=== PATIENT | female | born 1960 | race Caucasian/White ===

== ENCOUNTER → 2018-04-05 | Outpatient (CLI) | payer BC ==
[~2018-04-05] MED LIST: CATHETER FLUSH 10 ML SYR IV PRN; CITA40TA11 PO; ESTR1TAB24 PO; HYDR-3870 PO; IOHEXOL 350 MG/ML 100 ML (OMNIPAQUE 350) VIAL IV ONE; METO-370 PO; NITR-65 PO; NS 100 ML (IVPB) BAG IV ONE; PHEN-640 PO; TAMS0.4C98 PO; TRIA1CAP4 PO
[2018-04-05 12:56] LABS: BUN/CREATININE RATIO 19; CREATININE SERUM 0.64 MG/DL (0.60-1.30); GFR ESTIMATED > 60
--- NOTE | 2018-04-05 13:38 | Diagnostic Imaging Report ---
PROCEDURE: CT chest with contrast only. TECHNIQUE: Multiple contiguous axial images were obtained through the chest after administration of intravenous contrast. INDICATION: Pulmonary nodule. COMPARISON: No prior studies are available for comparison. FINDINGS: No axillary lymphadenopathy is detected. No hilar or mediastinal lymphadenopathy is identified. No pericardial or pleural fluid is detected. There is a slightly irregular nodule in the right middle lobe measuring 13 mm in size. No calcifications within the lesion are identified. No other parenchymal masses are seen. Central airways are unremarkable. The upper abdomen is unremarkable. The bony structures are non-acute. IMPRESSION: Noncalcified right middle lobe nodule. This is indeterminate, but a small neoplasm cannot be entirely excluded. PET/CT would be recommended for further evaluation. Dictated by: Dictated on workstation # [id number]
--- NOTE | 2018-04-05 14:10 | Diagnostic Imaging Report ---
INDICATION: Left lower quadrant pain. TECHNIQUE: Two supine view of the abdomen 1:43 PM. CORRELATION STUDY: None FINDINGS: Contrast material is noted within the collecting systems. There is no suggestion for asymmetrically dilated collecting systems. No definitive calcification along the expected course of either ureter. Mild severity fecal retention is present. No evidence for underlying obstruction. Cholecystectomy clips in the right upper quadrant. IMPRESSION: 1. Contrast within genitourinary system appearing to be nondilated. Nonobstructive appearing bowel gas pattern. Dictated by: Dictated on workstation # [id number]
== END ==
LOC: RAD 12:17
PROVIDERS: ATTEND Urology
DX: R91.8 Other nonspecific abnormal finding of lung field (principal); R10.32 Left lower quadrant pain
CPT/HCPCS: 36415; 71260; 74018; 82565; 84520

== ENCOUNTER → 2018-04-08 | Outpatient (CLI) | payer BC ==
[~2018-04-08] MED LIST changes: -CATHETER FLUSH 10 ML SYR IV PRN; -IOHEXOL 350 MG/ML 100 ML (OMNIPAQUE 350) VIAL IV ONE; -NS 100 ML (IVPB) BAG IV ONE
--- NOTE | 2018-04-08 16:47 | Diagnostic Imaging Report ---
INDICATION: History of right ureteral stone. COMPARISON: 04/05/2018. FINDINGS: Two supine radiographic views of the abdomen were obtained. There is a 7 mm calculus in the right hemipelvis in the expected location of the distal right ureter. There is no prior CT of the pelvis for comparison purposes. No other unexpected extraosseous calcifications or radiopaque foreign bodies are seen. Small bowel loops are nondistended. There is no large collection of free intraperitoneal air. Bony structures show no gross acute abnormalities. IMPRESSION: 1. Extraosseous calculus within the right hemipelvis, which may be within the distal right ureter. 2. Nonobstructed small bowel gas pattern. Dictated by: Dictated on workstation # [id number]
== END ==
LOC: RAD 14:08
PROVIDERS: ATTEND Urology
DX: N20.1 Calculus of ureter (principal)
CPT/HCPCS: 74018

== ENCOUNTER 2018-04-12 09:19 | Outpatient (CLI) | payer BC ==
[~2018-04-12] VITALS: Ht 152.4 cm; Wt 81.6 kg
[2018-04-12] MEDS ORDERED: ESTR1TAB24 PO ×2 (13:56)
[2018-04-12] MEDS ORDERED: TRIA1CAP4 PO ×2 (13:56)
[2018-04-12] MEDS ORDERED: METO-370 PO ×2 (13:56)
[2018-04-12] MEDS ORDERED: CITA40TA11 PO ×2 (13:56)
[2018-04-13] MEDS ORDERED: TAMS0.4C98 PO ×2 (10:31)
[2018-04-13] MEDS ORDERED: HYDR-3870 PO ×2 (10:31)
[2018-04-13] MEDS ORDERED: NITR-65 PO ×2 (10:31)
[2018-04-13] MEDS ORDERED: PHEN-640 PO ×2 (10:31)
== END 2018-04-12 13:58 | disposition home or self-care (01) ==
LOC: PREOP 09:19
PROVIDERS: ATTEND Urology
DX: Z01.818 Encounter for other preprocedural examination (principal)

== ENCOUNTER 2018-04-13 07:32 | Day surgery (SDC) | payer BC ==
[~2018-04-13] VITALS: Ht 152.4 cm; Wt 81.6 kg
[~2018-04-13 07:32] MED LIST changes: -HYDR-3870 PO; +LACTATED RINGERS 1,000 ML IV PRN; -NITR-65 PO; -PHEN-640 PO; -TAMS0.4C98 PO
[2018-04-13] MEDS ORDERED: cefTRIAXone INJECTION 1,000 MG in NS (IVPB) 50 ML IV ONE (07:45)
[2018-04-13] MEDS ORDERED: MIDAZOLAM 2 MG/2 ML (VERSED) VIAL IVP ONE (08:10)
--- NOTE | 2018-04-13 08:14 | Progress Note-Post Operative ---
Post-Operative Progess Note Surgeon (s)/Railroad Brakeman (s) Surgeon GONSALO URIAS MD Railroad Brakeman: N/A Pre-Operative Diagnosis RT DISTAL URETERAL STONE Post-Operative Diagnosis SAME Procedure & Operative Findings Date of Procedure 04/13/18 Procedure Performed/Findings RT URETEROSCOPY WITH STONE LITHOTRIPSY Anesthesia Type GENERAL Estimated Blood Loss Estimated blood loss (mL): N/A Specimens/Packing Specimens Removed N/A Packing: N/A GONSALO URIAS MD Apr 13, 2018 8:14 am
--- NOTE | 2018-04-13 08:14 | Progress Note-Pre Operative ---
Pre-Operative Progress Note H&P Reviewed The H&P was reviewed, patient examined and no changes noted. Date Seen by Provider: Apr 13, 2018 Time Seen by Provider: 08:13 Date H&P Reviewed: Apr 13, 2018 Time H&P Reviewed: 08:13 Pre-Operative Diagnosis: RT DISTAL URETERAL STONE GONSALO URIAS MD Apr 13, 2018 8:14 am
--- NOTE | 2018-04-13 08:15 | Progress Note-Post Operative ---
Post-Operative Progess Note Surgeon (s)/Steeple Jack (s) Surgeon GONSALO URIAS MD Steeple Jack: N/A Pre-Operative Diagnosis RT DISTAL URETERAL STONE Post-Operative Diagnosis SAME Procedure & Operative Findings Date of Procedure 04/13/18 Procedure Performed/Findings RT URETEROSCOPY WITH STONE LITHOTRIPSY Anesthesia Type GENERAL Estimated Blood Loss Estimated blood loss (mL): N/A Specimens/Packing Specimens Removed N/A Packing: N/A GONSALO URIAS MD Apr 13, 2018 8:15 am
[2018-04-13] MEDS ORDERED: MIDAZOLAM 2 MG/2 ML (VERSED) VIAL ONE (08:19)
--- NOTE | 2018-04-13 08:20 | Diagnostic Imaging Report ---
INDICATION: Ureteral stone two views were obtained. FINDINGS: Lung bases are clear. Bowel gas pattern is nonspecific. There are surgical clips in the right upper quadrant. There is a stone in the right hemipelvis presumably in the distal ureter. IMPRESSION: Presumed stone in the distal right ureter. Nonspecific bowel gas pattern. Dictated by: Dictated on workstation # [id number]
[2018-04-13] MEDS ORDERED: PROPOFOL INJECTION 50 ML IV ONE (08:23)
[2018-04-13] MEDS ORDERED: fentaNYL INJECTION 100 MCG/2 ML AMP ONE (08:27)
[2018-04-13 08:53] VITALS: BP 129/66
[2018-04-13] MEDS ORDERED: proPOfol 200 MG/20 ML (DIPRIVAN) VIAL IV ONE (09:06)
[2018-04-13] MEDS ORDERED: LIDOCAINE PF 2% 5 ML (XYLOCAINE) VIAL ONE (09:06)
[2018-04-13] MEDS ORDERED: ONDANSETRON 4 MG/2 ML (SDV) Z0FRAN ONE (09:06)
[2018-04-13] MEDS ORDERED: KETOROLAC 30 MG/ML VIAL ONE (09:09)
[2018-04-13] MEDS ORDERED: FUROSEMIDE 40 MG/4 ML INJ (LASIX) ONE (09:09)
--- NOTE | 2018-04-13 09:19 | Discharge Inst-Urology ---
Discharge Inst-Urology Discharge Medications New, Converted, or Re-newed RX: RX on Chart Patient Instructions/Follow Up Plan Please make appointment to been seen in office in [address] home Post lithotripsy instructions Increase oral fluids for 48 hours and then as needed. Diet and Activity as tolerated. If questions or concerns contact your physician Or seek help at emergency department. GONSALO URIAS MD Apr 13, 2018 9:19 am
[2018-04-13] MEDS ORDERED: ONDANSETRON 4 MG/2 ML (SDV) Z0FRAN IVP PRN (10:00)
[2018-04-13] MEDS ORDERED: morphine INJ 10 MG/ML 1ML (SYR OR VIAL) IVP PRN (10:00)
[2018-04-13 10:17] VITALS: BP 151/80
[2018-04-13] MEDS ORDERED: NITR-65 PO ×2 (10:31)
[2018-04-13] MEDS ORDERED: HYDR-3870 PO ×2 (10:31)
[2018-04-13] MEDS ORDERED: TAMS0.4C98 PO ×2 (10:31)
[2018-04-13] MEDS ORDERED: PHEN-640 PO ×2 (10:31)
[2018-04-13 10:45] VITALS: BP 117/75
[2018-04-13 11:30] VITALS: BP 151/85
[2018-04-13 11:50] VITALS: BP 151/85
--- NOTE | 2018-04-13 12:09 | Diagnostic Imaging Report ---
CLINICAL INDICATION: Patient is post lithotripsy. EXAM: KUB x-ray. COMPARISON: KUB x-ray dated 04/13/2018 at 0818 hrs. FINDINGS AND IMPRESSION: 1: There is interval resolution of previously seen stone in the right low pelvis region consistent with ureteral stone. There is a small focal calcification measuring 1 mm. Unknown if this represents a residual distal right ureteral fragment versus phlebolith. CT scan would better evaluate if clinically indicated. 2: The remainder of this exam shows no significant interval change compared to the prior study of comparison. Dictated by: Dictated on workstation # [id number]
--- NOTE | 2018-04-13 12:26 | Anesthesia-General Post-Op ---
General Patient Condition Mental Status/LOC: Same as Preop Cardiovascular: Satisfactory Nausea/Vomiting: Absent Respiratory: Satisfactory Pain: Controlled Complications: Absent Post Op Complications Complications None Follow Up Care/Instructions Patient Instructions None needed. Anesthesia/Patient Condition Patient Condition Patient is doing well, no complaints, stable vital signs, no apparent adverse anesthesia problems. No complications reported per nursing. LING SR CRNA Apr 13, 2018 12:26
--- NOTE | 2018-04-13 15:07 | OPERATIVE REPORT ---
DATE OF SERVICE: 04/13/2018 PREOPERATIVE DIAGNOSIS: Right distal ureteral stone. POSTOPERATIVE DIAGNOSIS: Right distal ureteral stone. OPERATION PERFORMED: Right ureteroscopy with stone lithotripsy. SURGEON: Chalino Urias MD ANESTHESIA: General. COMPLICATIONS: None. DESCRIPTION OF PROCEDURE: Under satisfactory general anesthesia, the patient in lithotomy position, genitalia were prepped and draped in the usual sterile fashion. Cystoscope was introduced under vision. The bladder was essentially normal except for a sluggish efflux on the right side. Using the foroblique lens, I dilated the right ureteral orifice intramural portion to the level of the stone guided fluoroscopically to accommodate a 6.9 Stateless semi-rigid ureteroscope. The stone was visualized and was broken up first at power of 5 in order not to lose the stone proximally and then finished with a power of 12. The stone was completely fragmented in very small fragments easy to pass. I went beyond the stone proximally. There was no further stone or fragments that needed to be addressed. I inspected again antegrade, some of the fragments fell into the bladder. I removed the ureteroscope, reinserted the cystoscope to empty the bladder. The patient tolerated the procedure and anesthesia well and was sent to recovery room in stable condition. Job ID: [id number] DocumentID: [id number] Dictated Date: 04/13/2018 09:21:14 Recordak Operator Date: 04/13/2018 15:06:43 Dictated By: CHALINO URIAS MD
== END 2018-04-13 11:50 | disposition home or self-care (01) ==
LOC: SDC 07:32
PROVIDERS: ATTEND Urology
DX: N20.1 Calculus of ureter (principal); I10 Essential (primary) hypertension; Z86.711 Personal history of pulmonary embolism
CPT/HCPCS: 74018; 87081

== ENCOUNTER 2018-04-27 16:48 | Outpatient (RCR) | payer BC ==
[~2018-04-27 16:48] MED LIST changes: +HYDR-3870 PO; -LACTATED RINGERS 1,000 ML IV PRN; +NITR-65 PO; +PHEN-640 PO; +TAMS0.4C98 PO
== END 2018-04-30 | disposition home or self-care (01) ==
LOC: LAB 16:48 → EDSTATUS 04-29 09:07
PROVIDERS: ATTEND Urology
DX: N20.9 Urinary calculus, unspecified (principal)
CPT/HCPCS: 36415; 82140; 82340; 82507; 82570; 83735; 83945; 83986; 84105; 84133; 84300; 84392; 84560; 88300

== ENCOUNTER 2022-05-11 08:40 | Inpatient (IN) | payer BC, OTHER ==
[~2022-05-11] VITALS: Ht 152.4 cm; Wt 95.7 kg
[~2022-05-11 08:40] MED LIST changes: -CITA40TA11 PO; +CITA40TA13 PO; -METO-370 PO; +METO50TA7 PO; -TAMS0.4C98 PO; +TMSL.4C PO; -TRIA1CAP4 PO; +TRIA1CAP84 PO
[2022-05-11 09:04] LABS: BILIRUBIN,URINE NEGATIVE (NEGATIVE); CLARITY,URINE CLEAR; COLOR,URINE YELLOW; GLUCOSE, URINE (UA) NEGATIVE (NEGATIVE); KETONES,URINE NEGATIVE (NEGATIVE); LEUKOCYTE ESTERASE ,URINE NEGATIVE (NEGATIVE); NITRITE,URINE NEGATIVE (NEGATIVE); PH,URINE 5.5 (5-9); PROTEIN,URINE NEGATIVE (NEGATIVE)
[2022-05-11 09:13] LABS: BACTERIA,URINE FEW /HPF
[2022-05-11] MEDS ORDERED: ONDANSETRON 4 MG/2 ML (SDV) Z0FRAN IVP ONE (09:30)
[2022-05-11] MEDS ORDERED: LACTATED RINGERS 1,000 ML IV ONE (09:30)
[2022-05-11 09:34] LABS: BASOPHILS # (AUTO) 0.1 10^3/uL (0.0-0.1); BASOPHILS % (AUTO) 0 % (0-10); EOSINOPHILS % (AUTO) 0 % (0-10); HEMATOCRIT 44 % (35-52); HEMOGLOBIN 14.8 g/dL (11.5-16.0); LYMPHOCYTES # (AUTO) 0.8 10^3/uL (1.0-4.0); LYMPHOCYTES % (AUTO) 3 % (12-44); MEAN CORPUSCULAR HEMOGLOBIN 31 pg (25-34); MEAN CORPUSCULAR HGB CONC 34 g/dL (32-36); MEAN CORPUSCULAR VOLUME 92 fL (80-99); MEAN PLATELET VOLUME 9.7 fL (9.0-12.2); MONOCYTES # (AUTO) 1.1 10^3/uL (0.0-1.0); MONOCYTES % (AUTO) 4 % (0-12); NEUTROPHILS # (AUTO) 25.2 10^3/uL (1.8-7.8); NEUTROPHILS % (AUTO) 92 % (42-75); PLATELET COUNT 277 10^3/uL (130-400); WHITE BLOOD COUNT 27.5 10^3/uL (4.3-11.0)
[2022-05-11 09:39] LABS: ALBUMIN 3.8 GM/DL (3.2-4.5)
[2022-05-11 09:40] LABS: POTASSIUM 3.6 MMOL/L (3.6-5.0)
[2022-05-11 09:41] LABS: CALCIUM 8.8 MG/DL (8.5-10.1)
[2022-05-11 09:42] LABS: TOTAL PROTEIN 6.7 GM/DL (6.4-8.2)
[2022-05-11 09:44] LABS: BILIRUBIN,TOTAL 1.1 MG/DL (0.1-1.0)
[2022-05-11] MEDS ORDERED: fentaNYL INJ 100 MCG/2 ML AMP IVP ONE (09:45)
[2022-05-11 09:46] LABS: CREATININE SERUM 0.85 MG/DL (0.60-1.30)
[2022-05-11] MEDS ORDERED: HOLD METFORMIN - RECEIVED CONTRAST 20 ML VIAL IV SCH (10:15)
[2022-05-11] MEDS ORDERED: NS 100 ML (IVPB) BAG IV ONE (10:15)
[2022-05-11] MEDS ORDERED: CATHETER FLUSH 10 ML SYR IV PRN (10:15)
[2022-05-11] MEDS ORDERED: IOHEXOL 350 MG/ML 100 ML (OMNIPAQUE 350) VIAL IV ONE (10:15)
[2022-05-11 10:31] LABS: BAND NEUTROPHILS 12 %; LYMPHOCYTES % (MANUAL) 4 %; MONOCYTES % (MANUAL) 2 %; NEUTROPHILS % (MANUAL) 82 %; RBC MORPH NORMAL; TOXIC GRANULATION/VACUOLAZATIO 3+
--- NOTE | 2022-05-11 10:40 | Diagnostic Imaging Report ---
PROCEDURE: CT abdomen and pelvis with contrast. TECHNIQUE: Multiple contiguous axial images were obtained through the abdomen and pelvis after administration of intravenous contrast. Auto Exposure Controls were utilized during the CT exam to meet ALARA standards for radiation dose reduction. All CT scans use one or more of the following dose optimizing techniques: automated exposure control, MA and/or KvP adjustment based on patient size and exam type or iterative reconstruction. INDICATION: Abdominal pain. FINDINGS: There is a 1.3 cm nodule in the right lung base. This is unchanged compared to prior examination from 2018 and may be partially calcified. Heart size is normal. Lung bases are otherwise clear. There is fatty infiltration of the liver. Gallbladder is unremarkable. There is no biliary ductal dilatation. Spleen is normal. There are numerous tiny pockets of free air anterior to the liver and about the spleen. Pancreas and adrenal glands are unremarkable. There is a cyst in the anterior aspect of the right kidney. Kidneys otherwise unremarkable. Aorta is nonaneurysmal. There is some free pockets of air in the pelvis as well. Aorta is nonaneurysmal. There is no pelvic mass or adenopathy. There are minimal degenerative changes in spine. There appears to be a very small fluid collection in the right lower quadrant with an air-fluid level. Possibility of early abscess cannot be excluded. This measures 1.8 cm and is seen on image 153 series 2. IMPRESSION: Free intraperitoneal air compatible with perforated viscus. This is presumably secondary to diverticulitis in the right lower quadrant. There is a questionable developing small abscess. Fatty infiltration of the liver Findings are conveyed directly to Dr. Melgar in the [facility] 10:30 AM Dictated by: Dictated on workstation # [id number]
--- NOTE | 2022-05-11 10:43 | ED Abdominal Pain ---
General Chief Complaint: Abdominal/GI Problems Stated Complaint: ABD PAIN Nursing Triage Note: PT STATES SHE WAS NOT FEELING WELL WHEN SHE WENT TO BED LAST NIGHT, WOKE UP AND VOMITED ABOUT 0430. DIFFICULTY URINATING, RLQ PAIN. NORMAL BM YESTERDAY, HX OF APPENDECTOMY, HYSTERECTOMY AND GALLBLADDER Source of Information: Patient Exam Limitations: No Limitations History of Present Illness Date Seen by Provider: May 11, 2022 Time Seen by Provider: 08:53 Initial Comments This is 62-year-old woman presents to the emergency room with complaints of right lower quadrant pain radiating throughout the rest of the abdomen that started sometime yesterday. She had a terrible night and started vomiting around 0 430. She has had some dysuria and feels like her urine does not completely empty before she stops voiding. She is afebrile. She has peritoneal signs on exam with tenderness to percussion throughout the abdomen, greatest in the right lower quadrant. She is surgically absent appendix, uterus and ovaries, and gallbladder. She has additionally had section and hernia repair. She is in obvious discomfort during the interview. Allergies and Home Medications Allergies Coded Allergies: codeine (Verified Allergy, Unknown, CHEST TIGHTNESS, 04/12/18) erythromycin base (Verified Allergy, Unknown, STOMACH CRAMPS, 04/12/18) meperidine (Verified Allergy, Unknown, ANAPHYLAXIS, 04/12/18) Patient Home Medication List Home Medication List Reviewed: Yes Citalopram Hydrobromide (Citalopram HBr) 40 Mg Tablet, 40 MG PO DAILY, (Reported) Entered as Reported by: GT SALAZAR on 04/12/18 1356 Estradiol (Estradiol Tablet) 1 Mg Tablet, 0.5 MG PO DAILY, (Reported) Entered as Reported by: GT SALAZAR on 04/12/18 1356 Hydrocodone/Acetaminophen (Lorcet 5-325 mg Tablet) 1 Each Tablet, 1-2 EACH PO Q4H PRN for PAIN Prescribed by: LAURITA CUI on 04/13/18 1031 Metoprolol Succinate (Metoprolol Succinate) 50 Mg Tab.er.24h, 50 MG PO DAILY, (Reported) Entered as Reported by: GT SALAZAR on 04/12/18 1356 Nitrofurantoin Monohyd/M-Cryst (Macrobid 100 mg Capsule) 100 Mg Capsule, 1 TAB PO BID Prescribed by: LAURITA CUI on 04/13/18 1031 Phenazopyridine HCl (Pyridium) 200 Mg Tablet, 1 TAB PO TID Prescribed by: LAURITA CUI on 04/13/18 1031 Tamsulosin HCl (Flomax) 0.4 Mg Cap, 0.4 MG PO DAILY Prescribed by: LAURITA CUI on 04/13/18 1031 Triamterene/Hydrochlorothiazid (Triamterene-Hctz 37.5-25 mg Cp) 1 Each Capsule, 1 EACH PO DAILY, (Reported) Entered as Reported by: GT SALAZAR on 04/12/18 1356 Review of Systems Review of Systems Constitutional: no symptoms reported EENTM: No Symptoms Reported Respiratory: No Symptoms Reported Cardiovascular: No Symptoms Reported Gastrointestinal: See HPI Genitourinary: See HPI Musculoskeletal: no symptoms reported Skin: no symptoms reported Psychiatric/Neurological: No Symptoms Reported Endocrine: No Symptoms Reported Hematologic/Lymphatic: No Symptoms Reported Past Llruujv-Jhvant-Kqjgkw Hx Patient Social History Tobacco Use?: No Substance use?: No Alcohol Use?: No Immunizations Up To Date COVID19 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 [employer] Seasonal Allergies Seasonal Allergies: Yes Past Medical History Surgery/Hospitalization HX: APPENDECTOMY, HYSTERECTOMY, GALLBLADDER, LT KNEE SCOPE, HYPERTENSION, ANXIETY, DEPRESSION, DIVERTICULITIS, KIDNEY STONES Surgeries: Yes Abdominal (Hernia repair), Adenoidectomy, Appendectomy, Section, Gallbladder, Hysterectomy, Tonsillectomy Respiratory: Yes Pulmonary Embolism Cardiac: Yes Hypertension Neurological: No : No Reproductive Disorders: No Genitourinary: Yes Kidney Stones Gastrointestinal: Yes Diverticulosis, Irritable Bowel Musculoskeletal: No Endocrine: No HEENT: No Cancer: No Skin Psychosocial: Yes Anxiety, Depression Integumentary: No Physical Exam Vital Signs Vital Signs - First Documented 05/11/22 08:52 Temp 35.3 Pulse 78 Resp 20 B/P (MAP) 100/44 (62) Pulse Ox 96 O2 Delivery Room Air Capillary Refill : Less Than 3 Seconds Height/Weight/BMI Height: 5'0.00" Weight: 180lbs. 0.0oz. 81.223570sk; 37.00 BMI Method: General Appearance: WD/WN, mild distress HEENT: PERRL/EOMI, normal ENT inspection Neck: normal inspection Respiratory: lungs clear, normal breath sounds, no respiratory distress Cardiovascular: regular rate, rhythm, no edema, no murmur Gastrointestinal: normal bowel sounds, soft, tenderness (Diffuse tenderness to percussion and palpation, greatest in the right lower quadrant) Extremities: normal inspection, no pedal edema Neurologic/Psychiatric: no motor/sensory deficits, alert, normal mood/affect, oriented x 3 Skin: normal color, warm/dry Focused Exam Lactate Level 05/11/22 10:10: Lactic Acid Level 2.69*H Lactic Acid Level Laboratory Tests Test 05/11/22 10:10 Lactic Acid Level 2.69 MMOL/L (0.50-2.00) *H Progress/Results/Core Measures Results/Orders Lab Results Laboratory Tests Test 05/11/22 08:52 05/11/22 09:10 05/11/22 10:10 05/11/22 10:48 Range/Units Urine Color YELLOW Urine Clarity CLEAR Urine pH 5.5 5-9 Urine Specific [place] 1.025 H 1.016-1.022 Urine Protein NEGATIVE NEGATIVE Urine Glucose (UA) NEGATIVE NEGATIVE Urine Ketones NEGATIVE NEGATIVE Urine Nitrite NEGATIVE NEGATIVE Urine Bilirubin NEGATIVE NEGATIVE Urine Urobilinogen 1.0 < = 1.0 MG/DL Urine Leukocyte Esterase NEGATIVE NEGATIVE Urine RBC (Auto) TRACE-I H NEGATIVE Urine RBC NONE /HPF Urine WBC NONE /HPF Urine Squamous Epithelial Cells 10-25 H /HPF Urine Crystals NONE /LPF Urine Bacteria FEW H /HPF Urine Casts NONE /LPF Urine Mucus NEGATIVE /LPF Urine Culture Indicated NO White Blood Count 27.5 H 4.3-11.0 10^3/uL Red Blood Count 4.75 3.80-5.11 10^6/uL Hemoglobin 14.8 11.5-16.0 g/dL Hematocrit 44 35-52 % Mean Corpuscular Volume 92 80-99 fL Mean Corpuscular Hemoglobin 31 25-34 pg Mean Corpuscular Hemoglobin Concent 34 32-36 g/dL Red Cell Distribution Width 13.1 10.0-14.5 % Platelet Count 277 130-400 10^3/uL Mean Platelet Volume 9.7 9.0-12.2 fL Immature Granulocyte % (Auto) 1 % Neutrophils (%) (Auto) 92 H 42-75 % Lymphocytes (%) (Auto) 3 L 12-44 % Monocytes (%) (Auto) 4 0-12 % Eosinophils (%) (Auto) 0 0-10 % Basophils (%) (Auto) 0 0-10 % Neutrophils # (Auto) 25.2 H 1.8-7.8 10^3/uL Lymphocytes # (Auto) 0.8 L 1.0-4.0 10^3/uL Monocytes # (Auto) 1.1 H 0.0-1.0 10^3/uL Eosinophils # (Auto) 0.0 0.0-0.3 10^3/uL Basophils # (Auto) 0.1 0.0-0.1 10^3/uL Immature Granulocyte # (Auto) 0.2 H 0.0-0.1 10^3/uL Neutrophils % (Manual) 82 % Lymphocytes % (Manual) 4 % Monocytes % (Manual) 2 % Band Neutrophils 12 % Toxic Granulation 3+ Blood Morphology Comment NORMAL Sodium Level 133 L 135-145 MMOL/L Potassium Level 3.6 3.6-5.0 MMOL/L Chloride Level 98 98-107 MMOL/L Carbon Dioxide Level 22 21-32 MMOL/L Anion Gap 13 5-14 MMOL/L Blood Urea Nitrogen 18 7-18 MG/DL Creatinine 0.85 0.60-1.30 MG/DL Estimat Glomerular Filtration Rate 78 BUN/Creatinine Ratio 21 Glucose Level 163 H 70-105 MG/DL Calcium Level 8.8 8.5-10.1 MG/DL Corrected Calcium 9.0 8.5-10.1 MG/DL Total Bilirubin 1.1 H 0.1-1.0 MG/DL Aspartate Amino Transf (AST/SGOT) 42 H 5-34 U/L Alanine Aminotransferase (ALT/SGPT) 41 0-55 U/L Alkaline Phosphatase 90 40-136 U/L C-Reactive Protein High Sensitivity 11.96 H 0.00-0.50 MG/DL Total Protein 6.7 6.4-8.2 GM/DL Albumin 3.8 3.2-4.5 GM/DL Lipase 6 L 8-78 U/L Lactic Acid Level 2.69 *H 0.50-2.00 MMOL/L Prothrombin Time 15.2 H 12.2-14.7 SEC INR Comment 1.2 0.8-1.4 Activated Partial Thromboplast Time 29 24-35 SEC My Orders Orders - RONALDO RODRIGUEZ MD Cbc With Automated Diff (05/11/22 08:53) Comprehensive Metabolic Panel (05/11/22 08:53) Hs C Reactive Protein (05/11/22 08:53) Lipase (05/11/22 08:53) Ua Culture If Indicated (05/11/22 08:53) Ed Iv/Invasive Line Start (05/11/22 08:53) Lactated Ringers (Lr 1000 Ml Iv Solution (05/11/22 09:30) Ondansetron Injection (Zofran Injectio (05/11/22 09:30) Fentanyl Inj (Sublimaze Injection) (05/11/22 09:45) Manual Differential (05/11/22 09:10) Ct Abdomen/Pelvis W (05/11/22 09:59) Blood Culture (05/11/22 09:59) Sputum Culture (05/11/22 09:59) Protime With Inr (05/11/22 09:59) Partial Thromboplastin Time (05/11/22 09:59) Chest 1 View, Ap/Pa Only (05/11/22 09:59) Vital Signs Adult Sepsis Patie Q15M (05/11/22 09:59) Remove Rings In Anticipation O (05/11/22 09:59) Lactic Acid Analyzer (05/11/22 09:59) Iohexol Injection (Omnipaque 350 Mg/Ml 1 (05/11/22 10:15) Received Contrast (Hold Metformin- Contr (05/11/22 10:15) Sodium Chloride Flush (Catheter Flush Sy (05/11/22 10:15) Ns (Ivpb) (Sodium Chloride 0.9% Ivpb Bag (05/11/22 10:15) Piperacillin Sodium/Tazobactam (Zosyn Vi (05/11/22 10:45) Medications Given in ED Current Medications Medications Dose Ordered Sig/Shelbie Route Start Time Stop Time Status Last Admin Dose Admin Fentanyl Citrate 50 mcg ONCE ONCE IVP 05/11/22 09:45 05/11/22 09:46 DC 05/11/22 09:35 50 MCG Iohexol 100 ml ONCE ONCE IV 05/11/22 10:15 05/11/22 10:16 DC 05/11/22 10:15 80 ML Lactated Ringer's 1,000 ml @ 0 mls/hr Q0M ONCE IV 05/11/22 09:30 05/11/22 09:31 DC 05/11/22 09:26 1,000 MLS/HR Ondansetron HCl 4 mg ONCE ONCE IVP 05/11/22 09:30 05/11/22 09:31 DC 05/11/22 09:26 4 MG Piperacillin Sod/ Tazobactam Sod 4.5 gm/Sodium Chloride 100 ml @ 200 mls/hr ONCE ONCE IV 05/11/22 10:45 05/11/22 11:14 DC 05/11/22 10:53 200 MLS/HR Sodium Chloride 10 ml NEEDED PRN IV 05/11/22 10:15 05/11/22 10:15 10 ML Sodium Chloride 100 ml ONCE ONCE IV 05/11/22 10:15 05/11/22 10:16 DC 05/11/22 10:15 80 ML Vital Signs/I&O 05/11/22 05/11/22 08:52 09:35 Temp 35.3 35.3 Pulse 78 Resp 20 B/P (MAP) 100/44 (62) Pulse Ox 96 O2 Delivery Room Air Blood Pressure Mean: 62 Progress Progress Note : Time: 10:42 Progress Note Symptoms were treated with fentanyl and Zofran. Labs were obtained and significant leukocytosis was noted. CT was obtained which showed scattered free air and a possible abscess in the right lower quadrant, likely originating from diverticulitis perforation. Blood cultures were obtained and his Zosyn is being given for initial antibiotic therapy. Case was discussed with Dr. Sylvester who would like the patient kept n.p.o. and admitted. Dr. Wallace was consulted for medical management. Diagnostic Imaging Diagonstic Imaging: CT Plain Films/CT/US/NM/MRI: abdomen, pelvis Comments CT abdomen and pelvis viewed by me and report reviewed. See report below: NAME: NURY SUAZO MED REC#: [id number] PT STATUS: REG ER : 1960 PHYSICIAN: RONALDO RODRIGUEZ MD ADMIT DATE: 05/11/22/ER Signed Date of Exam:05/11/22 CT ABDOMEN/PELVIS W PROCEDURE: CT abdomen and pelvis with contrast. TECHNIQUE: Multiple contiguous axial images were obtained through the abdomen and pelvis after administration of intravenous contrast. Auto Exposure Controls were utilized during the CT exam to meet ALARA standards for radiation dose reduction. All CT scans use one or more of the following dose optimizing techniques: automated exposure control, MA and/or KvP adjustment based on patient size and exam type or iterative reconstruction. INDICATION: Abdominal pain. FINDINGS: There is a 1.3 cm nodule in the right lung base. This is unchanged compared to prior examination from 2018 and may be partially calcified. Heart size is normal. Lung bases are otherwise clear. There is fatty infiltration of the liver. Gallbladder is unremarkable. There is no biliary ductal dilatation. Spleen is normal. There are numerous tiny pockets of free air anterior to the liver and about the spleen. Pancreas and adrenal glands are unremarkable. There is a cyst in the anterior aspect of the right kidney. Kidneys otherwise unremarkable. Aorta is nonaneurysmal. There is some free pockets of air in the pelvis as well. Aorta is nonaneurysmal. There is no pelvic mass or adenopathy. There are minimal degenerative changes in spine. There appears to be a very small fluid collection in the right lower quadrant with an air-fluid level. Possibility of early abscess cannot be excluded. This measures 1.8 cm and is seen on image 153 series 2. IMPRESSION: Free intraperitoneal air compatible with perforated viscus. This is presumably secondary to diverticulitis in the right lower quadrant. There is a questionable developing small abscess. Fatty infiltration of the liver Findings are conveyed directly to Dr. Melgar in the [facility] 10:30 AM Dictated by: Dictated on workstation # [id number] Dict: 05/11/22 1025 Trans: 05/11/22 1111 [facility] [id number] Interpreted by: ROBERT GRANADOS MD Electronically signed by: ROBERT GRANADOS MD 05/11/22 1111 Diagonstic Imaging: Xray Plain Films/CT/US/NM/MRI: chest Comments NAME: NURY SUAZO MED REC#: [id number] PT STATUS: REG ER : 1960 PHYSICIAN: RONALDO RODRIGUEZ MD ADMIT DATE: 05/11/22/ER Signed Date of Exam:05/11/22 CHEST 1 VIEW, AP/PA ONLY EXAMINATION: Chest 1 view HISTORY: Sepsis COMPARISON: None available. FINDINGS: Calcified granuloma in the right lower lobe is unchanged from 04/05/2018. Small amount of free air seen in the abdomen. No edema or pneumonia. No pleural effusion or pneumothorax. Heart size is normal. IMPRESSION: 1. Clear lungs. 2. Small amount of free air in the abdomen. Dictated by: Dictated on workstation # [id number] Dict: 05/11/22 1028 Trans: 05/11/22 1109 [facility] [id number] Interpreted by: TILA ORTIZ MD Electronically signed by: TILA ORTIZ MD 05/11/22 1109 Departure Communication (Admissions) Time/Spoke to Admitting Phy: 10:35 Dr. Sylvester Time/Spoke to Consulting Phy: 10:40 Dr. Wallace Impression Primary Impression: Bowel perforation Additional Impressions: Abdominal pain Qualified Codes: R10.84 - Generalized abdominal pain Nausea and vomiting Qualified Codes: R11.2 - Nausea with vomiting, unspecified Disposition: ADMITTED INPATIENT Condition: Stable Admissions Decision to Admit Reason: Admit from ER (General) Decision to Admit/Date: May 11, 2022 Time/Decision to Admit Time: 10:35 Departure-Patient Inst. Referrals: SATNAM ARAUJO MD (PCP/Family) Primary Care Physician Copy Copies To 1: SATNAM ARAUJO MD, JOSHUA T MD May 11, 2022 10:43
[2022-05-11] MEDS ORDERED: PIPERACILLIN SODIUM/TAZOBACTAM 4.5 GM in NS (IVPB) 100 ML IV ONE (10:45)
[2022-05-11 11:07] LABS: INR 1.2 (0.8-1.4); PROTHROMBIN TIME PATIENT 15.2 SEC (12.2-14.7)
[2022-05-11 11:47] VITALS: BP 100/64
--- NOTE | 2022-05-11 12:20 | Consultation - Hospitalist ---
HPI History of Present Illness: HPI/Chief Complaint Patient is a 62-year-old female with past medical history of hypertension, pulmonary embolism who presented to the emergency department due to abdominal pain. She reports right lower quadrant pain that started yesterday. She also had nausea and vomiting that started around 430 this morning. In the emergency room she was found to have free air likely from a perforated diverticula. She was admitted to surgery for further management. I have been consulted for medical management. She reports a history of hypertension and has not taken her medications today. She reports that her pain is a 5 out of 10. Source: patient Date Seen 05/11/22 Attending Physician Marbella Lee MD PCP Admitting Physician: Erika Sylvester MD Attending Physician: Erika Sylvester MD Referring Physician Date of Admission May 11, 2022 at 11:24 Home Medications & Allergies Home Medications Reviewed patient Home Medication Reconciliation performed by pharmacy medication reconciliations wildlife technician and/or nursing. Patients Allergies have been reviewed. Allergies Allergies Coded Allergies codeine (Verified Allergy, Unknown, CHEST TIGHTNESS, 04/12/18) erythromycin base (Verified Allergy, Unknown, STOMACH CRAMPS, 04/12/18) meperidine (Verified Allergy, Unknown, ANAPHYLAXIS, 04/12/18) Past Gwsrajj-Diyxgl-Esarfj Hx Patient Social History Tobacco Use?: No Use of E-Cig and/or Vaping dev: No Substance use?: No Alcohol Use?: No Pt feels they are or have been: No Immunizations Up To Date Tetanus Booster (TDap): More Than 5 Years Hepatitis A: Yes Hepatitis B: Yes Seasonal Allergies Seasonal Allergies: Yes Current Status status: No status: No Advance Directives: No Communicates: Verbally Primary Language: Pashto Preferred Spoken Language: Pashto Is interpretation needed?: No Sensory deficits: Vision impairment Implanted or Applied Medical D: None Past Medical History Surgeries: Adenoidectomy, Appendectomy, Section, Gallbladder, Hysterectomy, Tonsillectomy Pulmonary Embolism Hypertension Kidney Stones Irritable Bowel Skin Family Medical History Reviewed Nursing Family Hx No Pertinent Family Hx Review of Systems Constitutional: No chills, No fever EENTM: no symptoms reported Respiratory: no symptoms reported Cardiovascular: no symptoms reported Gastrointestinal: see HPI Genitourinary: dysuria Musculoskeletal: no symptoms reported Skin: no symptoms reported Psychiatric/Neurological: No Symptoms Reported Physical Exam Physical Exam Vital Signs Vital Signs - First Documented 05/11/22 08:52 Temp 35.3 Pulse 78 Resp 20 B/P (MAP) 100/44 (62) Pulse Ox 96 O2 Delivery Room Air Capillary Refill : Less Than 3 Seconds Height, Weight, BMI Height: 5'0.00" Weight: 180lbs. 0.0oz. 81.589758yq; 37.50 BMI Method: General Appearance: No Apparent Distress, WD/WN, Obese HEENT: PERRL/EOMI, Moist Mucous Membranes; No Scleral Icterus (L), No Scleral Icterus (R) Neck: Normal Inspection, Supple Respiratory: Lungs Clear, No Accessory Muscle Use, No Respiratory Distress Cardiovascular: Regular Rate, Rhythm, No JVD, No Murmur Gastrointestinal: Soft, Distended; No Guarding; Tenderness (throughout) Extremity: Normal Capillary Refill, No Calf Tenderness, No Pedal Edema Neurologic/Psychiatric: Alert, Oriented x3, Normal Mood/Affect Skin: Normal Color, Warm/Dry Results Results/Procedures Labs Laboratory Tests 05/11/22 09:10 Patient resulted labs reviewed. Imaging: Reviewed Imaging Report [facility] [place], [place] NAME: NURY SUAZO [facility] REC#: [id number] PT STATUS: REG ER : 1960 PHYSICIAN: RONALDO RODRIGUEZ MD ADMIT DATE: 05/11/22/ER Signed Date of Exam:05/11/22 CT ABDOMEN/PELVIS W PROCEDURE: CT abdomen and pelvis with contrast. TECHNIQUE: Multiple contiguous axial images were obtained through the abdomen and pelvis after administration of intravenous contrast. Auto Exposure Controls were utilized during the CT exam to meet ALARA standards for radiation dose reduction. All CT scans use one or more of the following dose optimizing techniques: automated exposure control, MA and/or KvP adjustment based on patient size and exam type or iterative reconstruction. INDICATION: Abdominal pain. FINDINGS: There is a 1.3 cm nodule in the right lung base. This is unchanged compared to prior examination from 2018 and may be partially calcified. Heart size is normal. Lung bases are otherwise clear. There is fatty infiltration of the liver. Gallbladder is unremarkable. There is no biliary ductal dilatation. Spleen is normal. There are numerous tiny pockets of free air anterior to the liver and about the spleen. Pancreas and adrenal glands are unremarkable. There is a cyst in the anterior aspect of the right kidney. Kidneys otherwise unremarkable. Aorta is nonaneurysmal. There is some free pockets of air in the pelvis as well. Aorta is nonaneurysmal. There is no pelvic mass or adenopathy. There are minimal degenerative changes in spine. There appears to be a very small fluid collection in the right lower quadrant with an air-fluid level. Possibility of early abscess cannot be excluded. This measures 1.8 cm and is seen on image 153 series 2. IMPRESSION: Free intraperitoneal air compatible with perforated viscus. This is presumably secondary to diverticulitis in the right lower quadrant. There is a questionable developing small abscess. Fatty infiltration of the liver Findings are conveyed directly to Dr. Melgar in the [place] [facility] 10:30 AM Dictated by: Dictated on workstation # [id number] Dict: 05/11/22 1025 Trans: 05/11/22 1111 [id number] Interpreted by: ROBERT GRANADOS MD Electronically signed by: ROBERT GRANADOS MD 05/11/22 1111 [facility] [place], [place] NAME: NURY SUAZO [facility] REC#: [id number] PT STATUS: REG ER : 1960 PHYSICIAN: RONALDO RODRIGUEZ MD ADMIT DATE: 05/11/22/ER Signed Date of Exam:05/11/22 CHEST 1 VIEW, AP/PA ONLY EXAMINATION: Chest 1 view HISTORY: Sepsis COMPARISON: None available. FINDINGS: Calcified granuloma in the right lower lobe is unchanged from 04/05/2018. Small amount of free air seen in the abdomen. No edema or pneumonia. No pleural effusion or pneumothorax. Heart size is normal. IMPRESSION: 1. Clear lungs. 2. Small amount of free air in the abdomen. Dictated by: Dictated on workstation # [id number] Dict: 05/11/22 1028 Trans: 05/11/22 1109 [id number] Interpreted by: TILA ORTIZ MD Electronically signed by: TILA ORTIZ MD 05/11/22 1109 Assessment/Plan Assessment and Plan Assess & Plan/Chief Complaint Severe sepsis due to perforated viscus Intraabdominal abscess Management per surgery Zosyn Fentanyl for pain NPO I updated her PCP Dr Lee and spoke with Dr Sylvester's [employer] Chang regarding plan for likely surgery HTN BP on low end of normal Trend [place] home metroprolol and diruetics Hyperglycemia Denies history of DM Trend DVT ppx: SCD only in prep for surgery Diagnosis/Problems Diagnosis/Problems (1) Severe sepsis (2) Diverticula of colon (3) Perforated viscus (4) Intra-abdominal abscess (5) HTN (hypertension) (6) Hx of pulmonary embolus CHERELLE REYEZ MD May 11, 2022 12:20
[2022-05-11] MEDS ORDERED: PIPERACILLIN SODIUM/TAZOBACTAM 4.5 GM in NS (IVPB) 100 ML IV SCH (12:30)
[2022-05-11] MEDS: LACTATED RINGERS 1,000 ML IV SCH ×2 (12:39→20:53)
[2022-05-11] MEDS: fentaNYL INJ 100 MCG/2 ML AMP IVP PRN ×3 (12:40→20:24)
[2022-05-11] MEDS: HYDROcodone/APAP 7.5 MG/325 MG (LORTAB, LORCET PLUS) TABLET PO PRN ×2 (14:14→20:24)
--- NOTE | 2022-05-11 14:46 | HISTORY AND PHYSICAL ---
DATE OF SERVICE: ATTENDING PRIMARY CARE PHYSICIAN: Dr. Marbella Lee. HISTORY OF PRESENT ILLNESS: The patient is a 62-year-old female, who reports that she started having right lower quadrant abdominal pain yesterday and reports that this did get worse during the night and progressed to episodes of nausea as well as an episode of vomiting around 4:30 this morning. She reports that for about the past six weeks, she has had intermittent episodes of abdominal pain and reports that she was seen by her primary care physician and thought that she may have a UTI, was started on antibiotics for a few days. She reports that she also has a history of nephrolithiasis and reports that she thought she was having another kidney stone. She did report that she also felt like she was having episodes of sweats and chills. She did present to the Emergency Department this morning and underwent a workup, where she was found to have a leukocytosis of 27,000 as well as an elevated lactic acid of 2.69, but was afebrile. She was given fentanyl as well as Zofran in the ER as well as antibiotic therapy initiated. She was then admitted. Upon examination by us, she reports that her symptoms had improved and was rating her pain around 5 out of 10. Upon further questioning, she reports that she did have a colonoscopy two years ago and was found to have diverticulosis. It was discussed with the patient about the results of her CT from the ER, which included scattered free intraabdominal air with a perforated viscus in the right lower quadrant, most likely secondary to diverticulitis as well as a possible developing abscess. PAST MEDICAL HISTORY: Hypertension, depression, and nephrolithiasis. PAST SURGICAL HISTORY: Appendectomy, complete hysterectomy, exploratory laparotomy and cholecystectomy, section, tonsils and adenoidectomy, left knee arthroscopy, and incisional hernia repair. ALLERGIES: CODEINE, ERYTHROMYCIN and DEMEROL. SOCIAL HISTORY: Negative for tobacco smoke and negative for alcohol. FAMILY HISTORY: Noncontributory. REVIEW OF SYSTEMS: This is a well-nourished female in no acute distress. She is not experiencing any shortness of breath or difficulty breathing. No chest pain, palpitations or diaphoresis. She did report episodes of nausea as well as an episode of vomiting this morning. She still reports right lower quadrant abdominal pain; however, this is not as severe as earlier. No diarrhea or constipation. No red blood per rectum. No dark tarry stools. She did report episodes of sweats and chills earlier this morning. No recent inadvertent weight loss. All other review of systems negative. PHYSICAL EXAMINATION: VITAL SIGNS: Temperature 36 degrees Celsius, pulse 73, respirations 20, blood pressure 106/53, and pulse ox 96% on room air. CHEST: Clear. Good breath sounds bilaterally. HEART: Regular and no murmurs. EXTREMITIES: No lower extremity edema. Negative Homans sign. HEENT: No scleral icterus. NECK: No cervical lymphadenopathy. ABDOMEN: Soft and mildly distended with lower abdominal tenderness with the majority being in the right lower abdominal quadrant. SKIN: Warm, dry and pink. NEUROLOGIC: Awake, alert and oriented x3. ASSESSMENT AND PLAN: A 62-year-old female with a perforated diverticulitis; however, this appears to be contained at this time. It was discussed with the patient about surgical intervention versus conservative management with IV fluids as well as antibiotics and bowel rest and pain and nausea medication and if she does improve, then we could elect to proceed with resection of the diseased portion of the colon at a later date. However, if she should worsen, then it was explained to her that we would need to proceed with surgical intervention on this admission; however, that would encompass resection and an end colostomy. At this time, she would like to proceed with a conservative management, which we will continue. We will also continue to monitor her symptoms. Job ID: [id number] DocumentID: [id number] Dictated Date: 05/11/2022 13:14:37 [place] Date: 05/11/2022 14:45:58 Dictated By: KAMAR BOYKIN APRN
[2022-05-11 16:00] VITALS: BP 99/51
[2022-05-11] MEDS: PIPERACILLIN SODIUM/TAZOBACTAM 4.5 GM in NS (IVPB) 100 ML IV SCH (16:28)
[2022-05-11] MEDS ORDERED: NS IV 1000 ML 1,000 ML IV SCH (17:15)
[2022-05-11] MEDS ORDERED: NS IV 1000 ML 1,000 ML IV ONE (17:30)
[2022-05-11] MEDS ORDERED: NS IV 1000 ML 1,000 ML ONE (17:50)
[2022-05-11 20:00] VITALS: BP 101/46
[2022-05-11 23:04] VITALS: BP 103/52
[2022-05-12] VITALS (7 sets, daily range): BP systolic 101–155; BP diastolic 49–82
[2022-05-12] MEDS: PIPERACILLIN SODIUM/TAZOBACTAM 4.5 GM in NS (IVPB) 100 ML IV SCH ×3 (00:44→17:15)
[2022-05-12] MEDS: HYDROcodone/APAP 7.5 MG/325 MG (LORTAB, LORCET PLUS) TABLET PO PRN ×4 (03:32→18:56)
[2022-05-12] MEDS: fentaNYL INJ 100 MCG/2 ML AMP IVP PRN ×5 (03:32→18:38)
[2022-05-12] MEDS: LACTATED RINGERS 1,000 ML IV SCH ×4 (03:32→18:54)
[2022-05-12 05:39] LABS: BASOPHILS # (AUTO) 0.1 10^3/uL (0.0-0.1); BASOPHILS % (AUTO) 0 % (0-10); EOSINOPHILS % (AUTO) 0 % (0-10); HEMATOCRIT 36 % (35-52); HEMOGLOBIN 11.7 g/dL (11.5-16.0); LYMPHOCYTES # (AUTO) 0.8 10^3/uL (1.0-4.0); LYMPHOCYTES % (AUTO) 5 % (12-44); MEAN CORPUSCULAR HEMOGLOBIN 31 pg (25-34); MEAN CORPUSCULAR HGB CONC 33 g/dL (32-36); MEAN CORPUSCULAR VOLUME 94 fL (80-99); MEAN PLATELET VOLUME 10.1 fL (9.0-12.2); MONOCYTES # (AUTO) 0.9 10^3/uL (0.0-1.0); MONOCYTES % (AUTO) 5 % (0-12); NEUTROPHILS % (AUTO) 89 % (42-75); PLATELET COUNT 202 10^3/uL (130-400)
[2022-05-12 05:52] LABS: ALBUMIN 2.9 GM/DL (3.2-4.5)
[2022-05-12 05:53] LABS: POTASSIUM 3.5 MMOL/L (3.6-5.0)
[2022-05-12 05:54] LABS: CALCIUM 8.1 MG/DL (8.5-10.1)
[2022-05-12 05:55] LABS: TOTAL PROTEIN 5.2 GM/DL (6.4-8.2)
[2022-05-12 05:57] LABS: BILIRUBIN,TOTAL 0.8 MG/DL (0.1-1.0)
[2022-05-12 05:59] LABS: CREATININE SERUM 0.68 MG/DL (0.60-1.30)
[2022-05-12] MEDS: PANTOPRAZOLE 40 MG (PROTONIX) VIAL IV SCH (08:00)
[2022-05-12] MEDS ORDERED: LOPE-175 PO (12:35)
[2022-05-12] MEDS ORDERED: LORA10TA76 PO (12:35)
[2022-05-12] MEDS ORDERED: ASPI1TAB23 PO (12:35)
[2022-05-12] MEDS ORDERED: ACET-2267 PO (12:35)
--- NOTE | 2022-05-12 17:20 | Progress Note - Hospitalist ---
Subjective HPI/CC On Admission Date Seen by Provider: May 12, 2022 Time Seen by Provider: 09:15 Patient is a 62-year-old female with past medical history of hypertension, pulmonary embolism who presented to the emergency department due to abdominal pain. She reports right lower quadrant pain that started yesterday. She also had nausea and vomiting that started around 430 this morning. In the emergency room she was found to have free air likely from a perforated diverticula. She was admitted to surgery for further management. I have been consulted for medical management. She reports a history of hypertension and has not taken her medications today. She reports that her pain is a 5 out of 10. Subjective/Events-last exam She continues to have abdominal pain. She denies fevers. She denies nausea and vomiting. Focused Exam Lactate Level 05/11/22 10:10: Lactic Acid Level 2.69*H 05/11/22 12:26: Lactic Acid Level 1.65 Objective Exam Vital Signs Vital Signs Date Time Temp Pulse Resp B/P (MAP) Pulse Ox O2 Delivery O2 Flow Rate FiO2 05/12/22 16:00 36.3 107 18 117/59 (78) 91 Room Air Capillary Refill : Less Than 3 Seconds General Appearance: No Apparent Distress, Obese Respiratory: Lungs Clear, No Respiratory Distress Cardiovascular: Regular Rate, Rhythm, No Murmur Gastrointestinal: Normal Bowel Sounds, Soft; No Distended; Guarding, Tenderness Extremity: Normal Inspection, No Pedal Edema Neurologic/Psychiatric: Alert, No Motor/Sensory Deficits Skin: Normal Color, Warm/Dry Results/Procedures Lab Laboratory Tests 05/12/22 05:12 Patient resulted labs reviewed. Imaging: Reviewed Imaging Report Assessment/Plan Assessment and Plan Assess & Plan/Chief Complaint Severe sepsis due to perforated diverticulitis Intraabdominal abscess Management per surgery Zosyn Pain regimen NPO HTN BP low normal Hold home metroprolol and diruetics Hyperglycemia Denies history of DM A1C pending Trend DVT ppx: SCDs Diagnosis/Problems Diagnosis/Problems (1) Diverticulitis of colon with perforation Status: Acute (2) Severe sepsis Status: Acute (3) Perforated viscus Status: Acute (4) Intra-abdominal abscess Status: Acute STEVEN FRENCH MD May 12, 2022 17:20
--- NOTE | 2022-05-12 18:32 | Progress Note ---
Subjective Date Seen by a Provider: May 12, 2022 Time Seen by a Provider: 18:00 Subjective/Events-last exam doing slightly better today. still has some crampy abd pain. tolerating clears with no nausea/vomiting. passing flatus. no fever/chills. Focused Exam Lactate Level 05/11/22 10:10: Lactic Acid Level 2.69*H 05/11/22 12:26: Lactic Acid Level 1.65 Objective Exam Vital Signs Date Time Temp Pulse Resp B/P (MAP) Pulse Ox O2 Delivery O2 Flow Rate FiO2 05/12/22 16:00 36.3 107 18 117/59 (78) 91 Room Air 05/12/22 12:36 36.4 88 18 101/66 (78) 94 Room Air 05/12/22 08:22 37.2 95 18 108/59 (75) 90 Room Air 05/12/22 08:00 Room Air 05/12/22 08:00 36.2 80 14 155/82 (106) 93 Room Air 05/12/22 03:36 36.4 89 20 110/56 (74) 98 Room Air 05/11/22 23:04 35.9 91 20 103/52 (69) 94 Room Air 05/11/22 20:00 36.9 82 18 101/46 (64) 95 Room Air 05/11/22 19:25 Room Air I & O 05/12/22 07:00 Intake Total 4440 ml Output Total 1800 ml Balance 2640 ml Capillary Refill : Less Than 3 Seconds General Appearance: No Apparent Distress HEENT: PERRL/EOMI Neck: Full Range of Motion Respiratory: Chest Non Tender, Lungs Clear, Normal Breath Sounds Gastrointestinal: soft, tenderness Extremity: Normal Capillary Refill Neurologic/Psychiatric: Alert, Oriented x3 Skin: Normal Color Lymphatic: No Adenopathy Results Lab Laboratory Tests 05/12/22 05:12: White Blood Count 18.0H, Red Blood Count 3.76L, Hemoglobin 11.7#, Hematocrit 36, Mean Corpuscular Volume 94, Mean Corpuscular Hemoglobin 31, Mean Corpuscular Hemoglobin Concent 33, Red Cell Distribution Width 13.4, Platelet Count 202, Mean Platelet Volume 10.1, Immature Granulocyte % (Auto) 1, Neutrophils (%) (Auto) 89H, Lymphocytes (%) (Auto) 5L, Monocytes (%) (Auto) 5, Eosinophils (%) (Auto) 0, Basophils (%) (Auto) 0, Neutrophils # (Auto) 16.0H, Lymphocytes # (Auto) 0.8L, Monocytes # (Auto) 0.9, Eosinophils # (Auto) 0.0, Basophils # (Auto) 0.1, Immature Granulocyte # (Auto) 0.2H, Sodium Level 139, Potassium Level 3.5L, Chloride Level 104, Carbon Dioxide Level 26, Anion Gap 9, Blood Urea Nitrogen 8, Creatinine 0.68, Estimat Glomerular Filtration Rate 99, BUN/Creatinine Ratio 12, Glucose Level 124H, Calcium Level 8.1L, Corrected Calcium 9.0, Total Bilirubin 0.8, Aspartate Amino Transf (AST/SGOT) 60H, Alanine Aminotransferase (ALT/SGPT) 62H, Alkaline Phosphatase 80, Total Protein 5.2L, Albumin 2.9L Microbiology 05/11/22 Blood Culture - Preliminary, Resulted No growth Assessment/Plan Assessment/Plan Assess & Plan/Chief Complaint sigmoid diverticulitis with microperforation. cont iv zosyn. ambulate. it continues to improve with conservative route, will plan for OP colonoscopy followed by OP low anterior colorectal resection around 8 weeks. CRUZ WOODRUFF MD May 12, 2022 18:32
[2022-05-13] MEDS: PIPERACILLIN SODIUM/TAZOBACTAM 4.5 GM in NS (IVPB) 100 ML IV SCH ×3 (00:15→17:10)
[2022-05-13] MEDS: HYDROcodone/APAP 7.5 MG/325 MG (LORTAB, LORCET PLUS) TABLET PO PRN ×5 (00:15→21:12)
[2022-05-13] MEDS: fentaNYL INJ 100 MCG/2 ML AMP IVP PRN ×7 (00:15→21:12)
[2022-05-13] MEDS: LACTATED RINGERS 1,000 ML IV SCH ×4 (01:36→21:09)
[2022-05-13 05:49] LABS: BASOPHILS # (AUTO) 0.1 10^3/uL (0.0-0.1); BASOPHILS % (AUTO) 0 % (0-10); EOSINOPHILS # (AUTO) 0.1 10^3/uL (0.0-0.3); EOSINOPHILS % (AUTO) 1 % (0-10); HEMATOCRIT 34 % (35-52); HEMOGLOBIN 11.3 g/dL (11.5-16.0); LYMPHOCYTES % (AUTO) 6 % (12-44); MEAN CORPUSCULAR HEMOGLOBIN 32 pg (25-34); MEAN CORPUSCULAR HGB CONC 33 g/dL (32-36); MEAN CORPUSCULAR VOLUME 95 fL (80-99); MEAN PLATELET VOLUME 9.8 fL (9.0-12.2); MONOCYTES # (AUTO) 1.2 10^3/uL (0.0-1.0); MONOCYTES % (AUTO) 7 % (0-12); NEUTROPHILS # (AUTO) 14.4 10^3/uL (1.8-7.8); NEUTROPHILS % (AUTO) 85 % (42-75); PLATELET COUNT 187 10^3/uL (130-400); WHITE BLOOD COUNT 16.9 10^3/uL (4.3-11.0)
[2022-05-13 06:05] LABS: ALBUMIN 2.7 GM/DL (3.2-4.5); POTASSIUM 3.4 MMOL/L (3.6-5.0)
[2022-05-13 06:07] LABS: CALCIUM 8.2 MG/DL (8.5-10.1)
[2022-05-13 06:08] LABS: TOTAL PROTEIN 5.3 GM/DL (6.4-8.2)
[2022-05-13 06:10] LABS: BILIRUBIN,TOTAL 0.6 MG/DL (0.1-1.0)
[2022-05-13 06:11] LABS: CREATININE SERUM 0.67 MG/DL (0.60-1.30)
[2022-05-13 07:43] VITALS: BP 119/58
[2022-05-13] MEDS: PANTOPRAZOLE 40 MG (PROTONIX) VIAL IV SCH (09:10)
[2022-05-13] MEDS: ONDANSETRON 4 MG/2 ML (SDV) Z0FRAN IV PRN (09:17)
--- NOTE | 2022-05-13 09:34 | Diagnostic Imaging Report ---
INDICATION: Bowel perforation. COMPARISON: 05/11/2022 TECHNIQUE: Single radiograph of the chest dated 08/12/2022 FINDINGS: The cardiac silhouette is within normal limits in size. Mild central pulmonary vascular congestion. The left lung is clear. Pulmonary nodule overlying the right lung base is again identified, which appears relatively similar to prior CT from 04/05/2018. No significant pleural effusion. No pneumothorax. Free air is again noted overlying the right hemidiaphragm, appearing relatively similar to the prior examination. Surgical clips overlying the right upper abdomen. No acute osseous abnormality. IMPRESSION: Persistent free intraperitoneal gas, appearing relatively similar to prior imaging. This is favored relate to perforated viscus as noted on recent CT. Mild central pulmonary vascular congestion without significant interstitial edema or pleural effusion. Right basilar pulmonary nodule, not significantly changed since 2018. Dictated by: Dictated on workstation # [id number]
[2022-05-13] MEDS ORDERED: FLUCONAZOLE 200 MG/100 ML 100 ML IV NR (13:00)
--- NOTE | 2022-05-13 15:36 | Progress Note ---
Subjective Date Seen by a Provider: May 13, 2022 Time Seen by a Provider: 11:00 Subjective/Events-last exam doing about the same. states still has waves of crampy abd pain. no BM or flatus. tolerating clears. no fever/chills. Focused Exam Lactate Level 05/11/22 10:10: Lactic Acid Level 2.69*H 05/11/22 12:26: Lactic Acid Level 1.65 Objective Exam Vital Signs Date Time Temp Pulse Resp B/P (MAP) Pulse Ox O2 Delivery O2 Flow Rate FiO2 05/13/22 08:00 92 Room Air 05/13/22 07:43 36.4 85 18 119/58 (78) 92 Room Air 05/12/22 23:58 36.6 91 20 103/56 (72) 90 Room Air 05/12/22 20:00 36.1 94 20 101/49 (66) 90 Room Air 05/12/22 19:35 Room Air 05/12/22 16:00 36.3 107 18 117/59 (78) 91 Room Air I & O 05/13/22 07:00 Intake Total 5000 ml Output Total 1500 ml Balance 3500 ml Capillary Refill : Less Than 3 Seconds General Appearance: No Apparent Distress HEENT: PERRL/EOMI Neck: Full Range of Motion Respiratory: Chest Non Tender, Lungs Clear, Normal Breath Sounds Cardiovascular: Regular Rate, Rhythm Gastrointestinal: soft, distended, tenderness Extremity: Normal Capillary Refill Neurologic/Psychiatric: Alert, Oriented x3 Skin: Normal Color Lymphatic: No Adenopathy Results Lab Laboratory Tests 05/13/22 05:26: White Blood Count 16.9H, Red Blood Count 3.57L, Hemoglobin 11.3L, Hematocrit 34L , Mean Corpuscular Volume 95, Mean Corpuscular Hemoglobin 32, Mean Corpuscular Hemoglobin Concent 33, Red Cell Distribution Width 13.5, Platelet Count 187, Mean Platelet Volume 9.8, Immature Granulocyte % (Auto) 1, Neutrophils (%) (Auto) 85H, Lymphocytes (%) (Auto) 6L, Monocytes (%) (Auto) 7, Eosinophils (%) (Auto) 1, Basophils (%) (Auto) 0, Neutrophils # (Auto) 14.4H, Lymphocytes # (Au to) 1.0, Monocytes # (Auto) 1.2H, Eosinophils # (Auto) 0.1, Basophils # (Auto) 0.1, Immature Granulocyte # (Auto) 0.1, Sodium Level 140, Potassium Level 3.4L, Chloride Level 102, Carbon Dioxide Level 27, Anion Gap 11, Blood Urea Nitrogen 5L, Creatinine 0.67, Estimat Glomerular Filtration Rate 99, BUN/Creatinine Ratio 7, Glucose Level 118H, Calcium Level 8.2L, Corrected Calcium 9.2, Total Bilirubin 0.6, Aspartate Amino Transf (AST/SGOT) 60H, Alanine Aminotransferase (ALT/SGPT) 69H, Alkaline Phosphatase 82, Total Protein 5.3L, Albumin 2.7L Microbiology 05/11/22 Blood Culture - Preliminary, Resulted No growth Assessment/Plan Assessment/Plan Assess & Plan/Chief Complaint sigmoid diverticulitis with microperforation. cont iv zosyn. add diflucan. increase ambulation CT abd and pelvis in am. it continues to improve with conservative route, will plan for OP colonoscopy followed by OP low anterior colorectal resection around 8 weeks. CRUZ WOODRUFF MD May 13, 2022 15:36
[2022-05-13 16:00] VITALS: BP 147/71
[2022-05-13] MEDS: polyethylene glycoL POWDER 17 GM (MIRALAX) PACK PO SCH (23:07)
[2022-05-14] VITALS (14 sets, daily range): BP systolic 118–161; BP diastolic 67–86
[2022-05-14] MEDS: HYDROcodone/APAP 7.5 MG/325 MG (LORTAB, LORCET PLUS) TABLET PO PRN ×2 (00:43→08:36)
[2022-05-14] MEDS: fentaNYL INJ 100 MCG/2 ML AMP IVP PRN ×5 (00:43→12:48)
[2022-05-14] MEDS: PIPERACILLIN SODIUM/TAZOBACTAM 4.5 GM in NS (IVPB) 100 ML IV SCH ×3 (00:44→16:25)
[2022-05-14] MEDS: ONDANSETRON 4 MG/2 ML (SDV) Z0FRAN IV PRN (00:48)
[2022-05-14 05:48] LABS: BASOPHILS % (AUTO) 0 % (0-10); EOSINOPHILS # (AUTO) 0.1 10^3/uL (0.0-0.3); EOSINOPHILS % (AUTO) 1 % (0-10); HEMATOCRIT 35 % (35-52); HEMOGLOBIN 11.4 g/dL (11.5-16.0); LYMPHOCYTES # (AUTO) 0.9 10^3/uL (1.0-4.0); LYMPHOCYTES % (AUTO) 6 % (12-44); MEAN CORPUSCULAR HEMOGLOBIN 31 pg (25-34); MEAN CORPUSCULAR HGB CONC 33 g/dL (32-36); MEAN CORPUSCULAR VOLUME 93 fL (80-99); MEAN PLATELET VOLUME 9.8 fL (9.0-12.2); MONOCYTES # (AUTO) 1.2 10^3/uL (0.0-1.0); MONOCYTES % (AUTO) 9 % (0-12); NEUTROPHILS # (AUTO) 11.8 10^3/uL (1.8-7.8); NEUTROPHILS % (AUTO) 83 % (42-75); PLATELET COUNT 224 10^3/uL (130-400); WHITE BLOOD COUNT 14.1 10^3/uL (4.3-11.0)
[2022-05-14 06:00] LABS: POTASSIUM 2.9 MMOL/L (3.6-5.0)
[2022-05-14 06:02] LABS: CALCIUM 8.3 MG/DL (8.5-10.1)
[2022-05-14] MEDS: LACTATED RINGERS 1,000 ML IV SCH ×3 (06:03→20:19)
[2022-05-14 06:06] LABS: CREATININE SERUM 0.58 MG/DL (0.60-1.30)
[2022-05-14] MEDS ORDERED: POTASSIUM CL 10MEQ/50ML IVPB 50 ML IV ONE (06:48)
[2022-05-14] MEDS: POTASSIUM CL 10MEQ/50ML IVPB 50 ML IV SCH ×4 (06:51→09:25)
[2022-05-14] MEDS ORDERED: NS 100 ML (IVPB) BAG IV ONE (07:30)
[2022-05-14] MEDS ORDERED: CATHETER FLUSH 10 ML SYR IV PRN (07:30)
[2022-05-14] MEDS ORDERED: IOHEXOL 350 MG/ML 100 ML (OMNIPAQUE 350) VIAL IV ONE (07:30)
[2022-05-14] MEDS ORDERED: HOLD METFORMIN - RECEIVED CONTRAST 20 ML VIAL IV SCH (07:30)
[2022-05-14] MEDS: FLUCONAZOLE 100 MG/50 ML 50 ML IV SCH (08:35)
[2022-05-14] MEDS: polyethylene glycoL POWDER 17 GM (MIRALAX) PACK PO SCH ×2 (08:35→21:00)
[2022-05-14] MEDS: PANTOPRAZOLE 40 MG (PROTONIX) VIAL IV SCH (08:36)
--- NOTE | 2022-05-14 09:17 | Diagnostic Imaging Report ---
PROCEDURE: CT abdomen and pelvis with and without contrast. TECHNIQUE: Precontrast acquisitions were acquired through the abdomen and pelvis. Multiple contiguous axial images were obtained through the abdomen and pelvis after the administration of intravenous contrast. Auto Exposure Controls were utilized during the CT exam to meet ALARA standards for radiation dose reduction. INDICATION: History of sigmoid perforation and diverticulitis, followup. COMPARISON: Recent CT dated 05/11/2022. FINDINGS: Imaging through the lung bases again demonstrates a nodule in the right middle lobe. The patient has developed small bilateral pleural effusions. Pneumoperitoneum persists. Inflammatory changes in the pelvis are again noted, likely from diverticulitis. There is a small gas and fluid collection in the right paramidline pelvis. This has increased since the prior exam and now measures 5.6 x 2.1 cm. This is deep to small bowel loops and cannot be percutaneously accessed at this time. A second small gas and fluid collection adjacent to the inflamed sigmoid loop is noted measuring approximately 1.9 cm. No bowel obstruction is seen. The liver is unremarkable. The gallbladder is surgically absent. The pancreas, spleen, adrenal glands, and kidneys are stable. The aorta is nonaneurysmal. IMPRESSION: 1. Development of small bilateral pleural effusions. 2. Continued pneumoperitoneum, consistent with a perforated hollow viscus. There are two small gas and fluid collections in the pelvis, consistent with small abscesses. These have increased in size since the exam of 3 days earlier. The deep nature of the fluid collections and fluid collections surrounded by small bowel prevent percutaneous access at this time. No bowel obstruction is identified. Dictated by: Dictated on workstation # [id number]
--- NOTE | 2022-05-14 10:59 | Progress Note-Pre Operative ---
Pre-Operative Progress Note Date of Available H&P: May 14, 2022 Date H&P Reviewed: May 14, 2022 Time H&P Reviewed: 11:00 History & Physical: No changes noted Pre-Operative Diagnosis: perforated diverticulitis CRUZ WOODRUFF MD May 14, 2022 10:59
[2022-05-14] MEDS: LORazepam INJ 2 MG/ML (ATIVAN) VIAL IVP PRN (13:58)
--- NOTE | 2022-05-14 15:50 | Progress Note ---
Subjective Date Seen by a Provider: May 14, 2022 Time Seen by a Provider: 10:00 Subjective/Events-last exam patient continues to have abd pain and no BM. also developed hypokalemia for metabolic acidosis. CT abd/pelvis today shows 2 intraabd abscesses. Objective Exam Vital Signs Date Time Temp Pulse Resp B/P (MAP) Pulse Ox O2 Delivery O2 Flow Rate FiO2 05/14/22 15:15 36.6 96 20 157/77 (103) 92 Room Air 05/14/22 07:56 94 Room Air 05/14/22 07:49 35.9 86 18 142/71 (94) 94 Room Air 05/14/22 00:00 36.0 78 16 148/67 (94) 92 Room Air 05/13/22 20:00 Room Air 05/13/22 16:00 35.6 80 18 147/71 (96) 91 Room Air I & O 05/14/22 07:00 Intake Total 5580 ml Output Total 1350 ml Balance 4230 ml Capillary Refill : Less Than 3 Seconds General Appearance: No Apparent Distress HEENT: PERRL/EOMI Neck: Full Range of Motion Respiratory: Chest Non Tender, Lungs Clear Cardiovascular: Regular Rate, Rhythm Gastrointestinal: distended, tenderness Extremity: Normal Capillary Refill Neurologic/Psychiatric: Alert, Oriented x3 Skin: Normal Color Lymphatic: No Adenopathy Results Lab Laboratory Tests 05/14/22 05:20: White Blood Count 14.1H, Red Blood Count 3.71L, Hemoglobin 11.4L, Hematocrit 35, Mean Corpuscular Volume 93, Mean Corpuscular Hemoglobin 31, Mean Corpuscular Hemoglobin Concent 33, Red Cell Distribution Width 13.3, Platelet Count 224, Mean Platelet Volume 9.8, Immature Granulocyte % (Auto) 1, Neutrophils (%) (Auto) 83H, Lymphocytes (%) (Auto) 6L, Monocytes (%) (Auto) 9, Eosinophils (%) (Auto) 1, Basophils (%) (Auto) 0, Neutrophils # (Auto) 11.8H, Lymphocytes # (Auto) 0.9L, Monocytes # (Auto) 1.2H, Eosinophils # (Auto) 0.1, Basophils # (Auto) 0.0, Immature Granulocyte # (Auto) 0.1, Sodium Level 140, Potassium Level 2.9L, Chloride Level 102, Carbon Dioxide Level 24, Anion Gap 14, Blood Urea Nitrogen 4L, Creatinine 0.58L, Estimat Glomerular Filtration Rate 103, BUN/Creatinine Ratio 7, Glucose Level 94, Calcium Level 8.3L Microbiology 05/11/22 Blood Culture - Preliminary, Resulted No growth Assessment/Plan Assessment/Plan Assess & Plan/Chief Complaint sigmoid diverticulitis with microperforation. cont iv zosyn. add diflucan. increase ambulation CT abd and pelvis in am. it continues to improve with conservative route, will plan for OP colonoscopy followed by OP low anterior colorectal resection around 8 weeks. patient clinical status worsening and developed [address] abd/pelvis today. Due to persistent and worsening clinical status will proceed with exploratory laparotomy, low anterior colorectal resection and end colostomy. CRUZ WOODRUFF MD May 14, 2022 15:50
[2022-05-14] MEDS: LACTATED RINGERS 1,000 ML IV PRN ×2 (17:35→20:19)
[2022-05-14] MEDS ORDERED: proPOfol 200 MG/20 ML (DIPRIVAN) VIAL IV ONE (17:36)
[2022-05-14] MEDS ORDERED: ONDANSETRON 4 MG/2 ML (SDV) Z0FRAN ONE (17:36)
[2022-05-14] MEDS ORDERED: MIDAZOLAM 2 MG/2 ML (VERSED) VIAL ONE (17:36)
[2022-05-14] MEDS ORDERED: LIDOCAINE PF 2% 5 ML (XYLOCAINE) VIAL ONE (17:36)
[2022-05-14] MEDS ORDERED: fentaNYL INJ 100 MCG/2 ML AMP ONE (17:36)
[2022-05-14] MEDS ORDERED: SEVOFLURANE (ULTANE) 15 ML INHAL SOLN ONE ×2 (17:36→19:46)
[2022-05-14] MEDS ORDERED: ceFAZolin INJECTION 2,000 MG ONE (18:05)
[2022-05-14] MEDS ORDERED: morphine INJ 10 MG/ML 1ML (SYR OR VIAL) ONE (18:33)
[2022-05-14] MEDS ORDERED: ROCURONIUM 50 MG/5 ML (ZEMURON) VIAL IV ONE (18:50)
[2022-05-14] MEDS ORDERED: SUCCINYLCHOLINE INJ 100 MG/5 ML SYR/VIAL ONE (18:50)
[2022-05-14] MEDS ORDERED: ceFAZolin INJECTION 2 MG IV ONE (19:22)
[2022-05-14] MEDS ORDERED: LIDOCAINE/EPI 2% 1:200,00 (XYLOCAINE) 20 ML VIAL ONE (19:25)
--- NOTE | 2022-05-14 19:46 | Progress Note-Post Operative ---
Post-Operative Progess Note Surgeon (s)/Financial Sales Representative (s) Surgeon CRUZ WOODRUFF MD Financial Sales Representative: lyn henderson MACHINE HOOP MAKER Pre-Operative Diagnosis perforated diverticulitis Post-Operative Diagnosis same Procedure & Operative Findings Date of Procedure 05/14/22 Procedure Performed/Findings exploratory laparotomy, low anterior colorectal resection, dillon's pouch and end colostomy. Anesthesia Type get Estimated Blood Loss Estimated blood loss (mL): minimal Specimens/Packing Specimens Removed sigmoid colon CRUZ WOODRUFF MD May 14, 2022 19:46
--- NOTE | 2022-05-14 19:55 | Tele-ICU Progress Note ---
Subjective Date Seen by a Provider: May 14, 2022 Time Seen by a Provider: 20:37 Sepsis Event Evaluation Sepsis Stage: Sepsis Height, Weight, BMI Height: 5'0.00" Weight: 180lbs. 0.0oz. 81.439536cy; 37.50 BMI Method: Exam Exam Patient acknowledged, consented, and participated in this virtual visit which was conducted using real time audio/video Vital Signs Date Time Temp Pulse Resp B/P (MAP) Pulse Ox O2 Delivery O2 Flow Rate FiO2 05/14/22 15:15 36.6 96 20 157/77 (103) 92 Room Air 05/14/22 07:56 94 Room Air 05/14/22 07:49 35.9 86 18 142/71 (94) 94 Room Air 05/14/22 00:00 36.0 78 16 148/67 (94) 92 Room Air 05/13/22 20:00 Room Air I & O 05/14/22 07:00 Intake Total 5580 ml Output Total 1350 ml Balance 4230 ml Height & Weight Height: 5'0.00" Weight: 180lbs. 0.0oz. 81.241250dm; 37.50 BMI Method: General Appearance: No Apparent Distress HEENT: PERRL/EOMI Neck: Full Range of Motion Respiratory: Chest Non Tender, Lungs Clear Cardiovascular: Regular Rate, Rhythm Capillary Refill: Less Than 3 Seconds Gastrointestinal: distended, tenderness Extremity: Normal Capillary Refill Neurologic/Psychiatric: Alert, Oriented x3 Skin: Normal Color Lymphatic: No Adenopathy Results Lab Laboratory Tests 05/13/22 05:26 05/14/22 05:20 Assessment/Plan Assessment/Plan New admission to ICU transfer from OR I am remotely monitoring this patient from another state. I am unable to do bedside exam, and history/physical and peritinent information is taken from other notes in the computer and bedside staff. I cannot take responsibility for the accuracy of this information. cc abd pain hpi 62 yo female presented on 02/08 to ER with a cc of abd pain. patient does have a history of diverticulosis. CT from the ER, which included scattered free intraabdominal air with a perforated viscus in the right lower quadrant, most likely secondary to diverticulitis as well as a possible developing abscess. Surgery consulted and patient now arrives to the icu post op. Patient underwent ex lap with lower anterior colorectal end colostomy with a diagnosis of perfortated diverticulitis. now arrives to icu extubated PAST MEDICAL HISTORY: Hypertension, depression, and nephrolithiasis. PAST SURGICAL HISTORY: Appendectomy, complete hysterectomy, exploratory laparotomy and cholecystectomy, section, tonsils and adenoidectomy, left knee arthroscopy, and incisional hernia repair. ALLERGIES: CODEINE, ERYTHROMYCIN and DEMEROL. SOCIAL HISTORY: Negative for tobacco smoke and negative for alcohol. FAMILY HISTORY: Noncontributory. ROS for pertinent positives see above Vitals see emar I am unable to do a physical exam as i am in a remote location. Labs See Emar 1. Post Op Ex Lap , POD 0 2. Perf. Diverticulitis orders post op per surgery floor orders to be continued patient has been seen by pcp and surgery and orders already entered. further orders per nursing requests. am labs, abg npo, fluids best practice abx, fluids see orders Critical Care: Critically Ill Patient CATHERINE BAILON DO May 14, 2022 19:55
[2022-05-14] MEDS ORDERED: ONDANSETRON 4 MG/2 ML (SDV) Z0FRAN IV PRN (20:00)
[2022-05-14] MEDS ORDERED: METOCLOPRAMIDE INJ 10 MG/2 ML (REGLAN) IV PRN (20:00)
[2022-05-14] MEDS ORDERED: NALOXONE 0.4 MG/ML 1 ML (NARCAN) VIAL IV PRN (20:00)
[2022-05-14] MEDS ORDERED: diphenhydrAMINE 50 MG/ML INJ (BENADRYL) IVP PRN (20:00)
[2022-05-14] MEDS ORDERED: fentaNYL INJ 1,000 MCG in NS (IVPB) 80 ML IV PRN (20:00)
[2022-05-14] MEDS ORDERED: diphenhydrAMINE 50 MG/ML INJ (BENADRYL) IV PRN (20:00)
[2022-05-14] MEDS ORDERED: NS IV 1000 ML 1,000 ML IV SCH (20:00)
[2022-05-14] MEDS ORDERED: GLYCOPYRROLATE 0.2 MG/ML (ROBINUL) 2 ML VIAL ONE (20:08)
[2022-05-14] MEDS ORDERED: NEOSTIGMINE (BLOXIVERZ ) 1 MG/1ML 10 ML VIAL ONE (20:08)
[2022-05-14] MEDS ORDERED: fentaNYL INJ 100 MCG/2 ML AMP IVP ONE (20:45)
[2022-05-14] MEDS ORDERED: ONDANSETRON 4 MG/2 ML (SDV) Z0FRAN IVP PRN (20:45)
[2022-05-14] MEDS ORDERED: ENOXAPARIN INJECTION 30 MG/0.3 ML SYR SC SCH (21:00)
[2022-05-14] MEDS ORDERED: 1/2 NS W/KCL 20 MEQ/L 1,000 ML IV ONE (21:05)
[2022-05-14] MEDS: 1/2 NS W/KCL 20 MEQ/L 1,000 ML IV SCH (21:21)
[2022-05-14] MEDS: RT-ALBUTEROL SULF 2.5 MG/3 ML PRE-MIX VIAL INH SCH (22:28)
[2022-05-15] VITALS (19 sets, daily range): BP systolic 90–146; BP diastolic 55–83
--- NOTE | 2022-05-15 01:22 | OPERATIVE REPORT ---
DATE OF SERVICE: 05/14/2022 ATTENDING PRIMARY CARE PHYSICIAN: Dr. Marbella Lee. PREOPERATIVE DIAGNOSIS: Perforated viscus. POSTOPERATIVE DIAGNOSIS: Perforated sigmoid diverticulitis. PROCEDURES: Exploratory laparotomy, low anterior colorectal resection, Bridget's pouch and end colostomy, primary repair of incisional hernia. SURGEON: Cruz Woodruff MD. WASTE AND BATTING WASTE CHOPPER: Chnag Lowe APRN ANESTHESIA: General endotracheal. ESTIMATED BLOOD LOSS: Minimal. FINDINGS: Inflammatory phlegmon and what appeared to be a contained perforation of sigmoid diverticulitis. No palpable tumors. DISPOSITION: The patient tolerated the procedure well. INDICATIONS: The patient is a 62-year-old female, who began having right lower abdominal quadrant pain the day before admission. She states that during the night, the pain progressed and then she also developed an episode of nausea and vomiting. For the past 6 weeks, she has had intermittent episodes of abdominal pain and has been seen by her primary care physician and initially thought this may have been due to urinary tract infection was then started on antibiotics. She also does have a history of nephrolithiasis. She also had developed fevers and chills. She presented to the Emergency Department and she underwent workup and found to have a leukocytosis of 27,[address] scan was also performed, which did show scattered small bubbles of free intraabdominal air with likely secondary to a perforated viscus and diverticulitis. There is also possibility of a developing abscess. The patient was stable. Her pain was under control and she was afebrile. We have talked to the patient about different options and decided on conservative management to try to allow the inflammation to heal with IV antibiotics and allow the valve to regain function. Afterwards, the plan was to proceed with a colonoscopy to rule out malignancy and then proceed with an elective prepped colon one stage low anterior colorectal resection with anastomosis. She was placed on antibiotics and did well the initial day; however, the following day, she states that she did have some crampy abdominal pain. She was started on Zosyn as well as Diflucan and her white count did slowly go down to the 14,[address] scan was performed this morning, which did show an increase in size of the inflammatory phlegmon. It was explained to the patient that the patient was likely not going to tolerate nonoperative management and we would proceed with a low anterior colorectal resection and end colostomy and then second stage procedure of reanastomosis. She was in full understanding of this and wanted to proceed with the procedure. DESCRIPTION OF PROCEDURE: The patient was brought to the operating room, laid supine on the table. After adequate IV pain and sedative medications and general endotracheal intubation, the abdomen was prepped and draped in standard surgical fashion. A midline laparotomy incision low in the abdomen was made along her previous laparotomy incision. The subcutaneous tissue was then opened as well as the fascia and previous mesh using electrocautery. The peritoneal lining was then opened using Metzenbaum scissors and the remainder of the fascia and peritoneal lining was then opened to the length of the skin incision under direct visualization. We then proceeded with meticulous dissection of the adhesion tissue. An enterotomy was noted of the transverse colon, which was repaired primarily with a 2-layer interrupted 3-0 silk sutures. The inflammatory phlegmon and perforation was identified of the sigmoid colon and the sigmoid colon was dissected out using blunt dissection as well as electrocautery. The mesocolon was then dissected using electrocautery and an area along the confluence of the tinea was identified where no diverticulosis identified and the rectum was stapled and cut using a TA contour stapler with a green load. We then proceeded to examine the sigmoid colon approximately to have an area with no diverticulosis identified and the mesentery opened using electrocautery. This part of the colon was then stapled and transected using a BRIAN 75 mm stapler with a blue load. The mesentery was then clamped with Grecia clamps, cut with Metzenbaum scissors and tied with 0 silk sutures with visualization of good hemostasis and the specimen was sent to pathology. We then proceeded with 4liters of warm irrigation, all 4 quadrants \of the peritoneal cavity. No other abscesses or inflammation was identified. The ostomy was then created in the left upper abdominal quadrant and the skin was excised using cautery and the subcutaneous tissue was then opened using electrocautery. The fascia was then opened vertically and stretched out to 2 fingerbreadths. Using a Paula, the descending colon was brought through this opening. We then proceeded to close the fascia using #1 looped PDS starting superiorly, inferiorly and tied in the middle. Subcutaneous tissue was reapproximated using 3-0 Vicryl interrupted sutures and skin was closed using skin abimbola. The ostomy was then matured after the staple line was opened using electrocautery using a 3-0 Vicryl interrupted sutures. The ostomy was widely patent and well vascularized. An ostomy appliance was then placed on the colostomy. Wound was then covered with sterile gauze. Before closure of the peritoneal lining, an incisional hernia was identified on the CT scan, which was identified and closed primarily under direct visualization using a 0 Prolene running suture. The patient tolerated the procedure well. We will admit her to the ICU and proceed with DVT prophylaxis with early ambulation, calf SCDs as well as Lovenox injections. We also proceed with adequate pain control also with Lovenox injections. We will also proceed with adequate pain control with a CYTOGENETICS LABORATORY MANAGER pump. When she has bowel function, we will start clear liquids and advance her diet as tolerated. We will also continue with antibiotics while she is in the hospital as well. Job ID: [id number] DocumentID: [id number] Dictated Date: 05/14/2022 20:05:46 Strategic Partnership Representative Date: 05/15/2022 01:21:57 Dictated By: CRUZ WOODRUFF MD MTDSumanth
[2022-05-15] MEDS: fentaNYL INJ 100 MCG/2 ML AMP IVP PRN (01:34)
[2022-05-15] MEDS: PIPERACILLIN SODIUM/TAZOBACTAM 4.5 GM in NS (IVPB) 100 ML IV SCH ×3 (01:34→17:18)
[2022-05-15] MEDS: 1/2 NS W/KCL 20 MEQ/L 1,000 ML IV SCH ×4 (01:35→23:03)
[2022-05-15] MEDS ORDERED: NS IV 500 ML 500 ML IV PRN (01:45)
[2022-05-15] MEDS ORDERED: fentaNYL 1,250 MCG/NS 250 ML DRIP IV SCH (02:45)
[2022-05-15 02:48] LABS: HEMATOCRIT 38 % (35-52); HEMOGLOBIN 12.8 g/dL (11.5-16.0); MEAN CORPUSCULAR HEMOGLOBIN 31 pg (25-34); MEAN CORPUSCULAR HGB CONC 34 g/dL (32-36); MEAN CORPUSCULAR VOLUME 93 fL (80-99); MEAN PLATELET VOLUME 8.9 fL (9.0-12.2); PLATELET COUNT 275 10^3/uL (130-400); WHITE BLOOD COUNT 20.3 10^3/uL (4.3-11.0)
[2022-05-15 02:57] LABS: ALBUMIN 2.6 GM/DL (3.2-4.5)
[2022-05-15 02:58] LABS: POTASSIUM 3.3 MMOL/L (3.6-5.0)
[2022-05-15 02:59] LABS: CALCIUM 7.8 MG/DL (8.5-10.1)
[2022-05-15 03:00] LABS: TOTAL PROTEIN 5.2 GM/DL (6.4-8.2)
[2022-05-15 03:02] LABS: BILIRUBIN,TOTAL 0.4 MG/DL (0.1-1.0)
[2022-05-15 03:03] LABS: PHOSPHORUS 3.6 MG/DL (2.3-4.7)
[2022-05-15 03:04] LABS: CREATININE SERUM 0.56 MG/DL (0.60-1.30)
[2022-05-15 03:07] LABS: MAGNESIUM 1.4 MG/DL (1.6-2.4)
[2022-05-15] MEDS: MAGNESIUM 1 GM/100 ML IVPB 100 ML IV SCH ×3 (03:22→04:24)
[2022-05-15] MEDS: POTASSIUM CL 10MEQ/50ML IVPB 50 ML IV SCH ×5 (03:22→06:17)
[2022-05-15] MEDS: KCL 20 MEQ TAB (K-DUR) PO SCH (03:22)
[2022-05-15] MEDS ORDERED: POTASSIUM CL 10MEQ/50ML IVPB 50 ML IV ONE (03:30)
[2022-05-15] MEDS ORDERED: MAGNESIUM 1 GM/100 ML IVPB 100 ML IV ONE (03:30)
[2022-05-15] MEDS: LORazepam INJ 2 MG/ML (ATIVAN) VIAL IVP PRN ×2 (03:56→14:54)
[2022-05-15 04:24] LABS: ABG BASE EXCESS 0.2 MMOL/L (-2.5-2.5); ABG OXYGEN SATURATION 99 % (94-100); ABG PCO2 45 MMHG (35-45); ABG PH 7.37 (7.37-7.43); ABG PO2 101 MMHG (79-93); ABG TCO2 26.3 MMOL/L (21.0-31.0)
[2022-05-15 04:28] LABS: ALLENS TEST YES-POS
[2022-05-15 04:29] LABS: INSPIRED O2 2.5L; PATIENT TEMP 36.8; VENTILATOR NO
[2022-05-15] MEDS: RT-ALBUTEROL SULF 2.5 MG/3 ML PRE-MIX VIAL INH SCH ×3 (07:14→22:13)
--- NOTE | 2022-05-15 07:54 | Anesthesia-General Post-Op ---
General Patient Condition Mental Status/LOC: Same as Preop Cardiovascular: Satisfactory Nausea/Vomiting: Absent Respiratory: Satisfactory Pain: Controlled Complications: Absent Post Op Complications Complications None Follow Up Care/Instructions Patient Instructions None needed. Anesthesia/Patient Condition Patient Condition Patient is doing well, no complaints, stable vital signs, no apparent adverse anesthesia problems. No complications reported per nursing. LAMONT ARDON CRNA May 15, 2022 07:53
[2022-05-15] MEDS: polyethylene glycoL POWDER 17 GM (MIRALAX) PACK PO SCH ×2 (08:41→19:40)
[2022-05-15] MEDS: SENNA W/DOCUSATE (SENOKOT S) TABLET PO SCH (08:41)
[2022-05-15] MEDS: FLUCONAZOLE 100 MG/50 ML 50 ML IV SCH (08:42)
[2022-05-15] MEDS: PANTOPRAZOLE 40 MG (PROTONIX) VIAL IV SCH (08:42)
[2022-05-15] MEDS: ONDANSETRON 4 MG/2 ML (SDV) Z0FRAN IV PRN ×2 (09:12→14:35)
--- NOTE | 2022-05-15 11:53 | Tele-ICU Progress Note ---
Subjective Date Seen by a Provider: May 15, 2022 Time Seen by a Provider: 11:52 Subjective/Events-last exam (Tele-ICU Physician , Progress Note ) Available chart/ vitals / labs / Images reviewed Video assessment done using teleICU camera, rest of exam as per RN Discussed with RN Events overnight : Afebrile hemodynamically stable Respiratory - I/O = Drips:fent gtt Pressors- no Consultants: Hospital course: (05/14) Admitted a 62 y/o with severe sepsis (GI) from perforated diverticulitis now post op for ex lap colorectal resection, hartmans pouch and end colostomy perforated diverticulitis - s/p op for ex lap colorectal resection, hartmans pouch and end colostomy - pain control Severe sepsis due to above - cont abx tachycardia - presumed from pain , cont hydrations - resume home metoprolol when ok to take PO with sx Hypoxia 2 l - monitor - try IS somnolence - try to decrese opioids , follow closely Lines : PICC , (Central Line Necessity Reviewed) Sultana: sultana OG: Nutrition: Analgesia: Anxiety/ delirium VTE Prophylaxis: SCD, start fabian when ok with sx Stress Ulcer Prophylaxis: na Plans in collaboration with bedside consultants and IM MDs. Discussed with RN to reach out if any questions or concerns A total of 20 minutes of critical care time was devoted to this patient today, required to treat and/or prevent further deterioration of critical care condition ( as above ) . Sepsis Event Evaluation Height, Weight, BMI Height: 5'0.00" Weight: 180lbs. 0.0oz. 81.217005zy; 40.47 BMI Method: Exam Exam Patient acknowledged, consented, and participated in this virtual visit which w as conducted using real time audio/video Vital Signs Date Time Temp Pulse Resp B/P (MAP) Pulse Ox O2 Delivery O2 Flow Rate FiO2 05/15/22 11:50 37.4 05/15/22 11:00 109 20 141/82 (101) 95 Nasal Cannula 2.00 05/15/22 10:00 113 12 142/81 (101) 95 Nasal Cannula 2.00 05/15/22 09:00 104 90/55 (67) 95 Nasal Cannula 2.00 05/15/22 08:00 36.2 05/15/22 08:00 94 Room Air 05/15/22 08:00 104 28 131/63 (85) 95 Nasal Cannula 2.00 05/15/22 07:36 Room Air 05/15/22 07:15 94 Room Air 05/15/22 07:00 98 23 136/78 (97) 94 Nasal Cannula 2.00 05/15/22 07:00 99 05/15/22 06:00 98 25 134/69 (90) 92 Nasal Cannula 2.00 05/15/22 05:00 96 22 136/75 (95) 97 Nasal Cannula 2.00 05/15/22 04:00 99 21 134/80 (98) 96 Nasal Cannula 2.00 05/15/22 03:51 36.7 Nasal Cannula 2.00 05/15/22 03:49 94 Nasal Cannula 2.00 05/15/22 03:00 98 25 140/74 (96) 97 Nasal Cannula 3.00 05/15/22 02:00 107 21 136/78 (97) 96 Nasal Cannula 3.00 05/15/22 01:00 105 26 137/75 (95) 96 Nasal Cannula 3.00 05/15/22 01:00 105 05/15/22 00:00 103 24 138/81 (100) 96 Nasal Cannula 3.00 05/14/22 23:46 94 Nasal Cannula 3.00 05/14/22 23:45 36.1 Nasal Cannula 3.00 05/14/22 23:00 101 22 146/73 (97) 98 Nasal Cannula 3.00 05/14/22 22:45 Nasal Cannula 3.00 05/14/22 22:00 98 21 139/72 (94) 97 OxyMask 10.00 05/14/22 21:45 92 22 140/73 (95) 95 OxyMask 10.00 05/14/22 21:30 95 23 142/67 (92) 97 OxyMask 10.00 05/14/22 21:15 94 21 146/75 (98) 98 OxyMask 10.00 05/14/22 21:15 OxyMask 10.00 05/14/22 21:10 36.6 22 155/74 (101) 98 OxyMask 10.00 05/14/22 21:00 95 05/14/22 21:00 95 24 155/74 (101) 95 OxyMask 10.00 05/14/22 21:00 36.8 95 12 95 OxyMask 10.00 05/14/22 21:00 19 150/71 (97) 96 OxyMask 10.00 05/14/22 20:55 97 OxyMask 9.00 05/14/22 20:50 OxyMask 10.00 05/14/22 20:50 20 161/86 (111) 97 OxyMask 10.00 05/14/22 20:45 98 21 161/86 (111) 96 OxyMask 10.00 05/14/22 20:40 21 157/78 (104) 98 OxyMask 10.00 05/14/22 20:34 94 Room Air 05/14/22 20:34 36.9 16 118/68 (85) 94 OxyMask 10.00 05/14/22 20:34 OxyMask 10.00 05/14/22 15:15 36.6 96 20 157/77 (103) 92 Room Air I & O 05/15/22 07:00 Intake Total 5150 ml Output Total 2825 ml Balance 2325 ml Height & Weight Height: 5'0.00" Weight: 180lbs. 0.0oz. 81.102804ap; 40.47 BMI Method: General Appearance: No Apparent Distress HEENT: PERRL/EOMI Neck: Full Range of Motion Respiratory: Chest Non Tender, Lungs Clear Cardiovascular: Regular Rate, Rhythm Capillary Refill: Less Than 3 Seconds Gastrointestinal: distended, tenderness Extremity: Normal Capillary Refill Neurologic/Psychiatric: Alert, Oriented x3 Skin: Normal Color Lymphatic: No Adenopathy Results Lab Laboratory Tests 05/14/22 05:20 05/15/22 02:41 Assessment/Plan Assessment/Plan 1 FREDDY VALENTIN MD May 15, 2022 11:53
[2022-05-15] MEDS ORDERED: ACETAMINOPHEN 325 MG TABLET PO PRN (12:45)
[2022-05-15] MEDS ORDERED: PROMETHAZINE INJ 25 MG/ML (PHENERGAN) AMP IVP PRN (14:30)
--- NOTE | 2022-05-15 15:08 | Progress Note ---
Subjective Date Seen by a Provider: May 15, 2022 Time Seen by a Provider: 14:45 Subjective/Events-last exam Patient seen with Dr. Sylvester. Patient reports continue abdominal pain. Having episodes of nausea and dry heaves. No ostomy output yet. Objective Exam Vital Signs Date Time Temp Pulse Resp B/P (MAP) Pulse Ox O2 Delivery O2 Flow Rate FiO2 05/15/22 13:00 104 135/69 (91) 92 Nasal Cannula 2.00 05/15/22 13:00 105 135/67 (89) 92 Nasal Cannula 2.00 05/15/22 13:00 102 05/15/22 12:00 94 Room Air 05/15/22 11:50 37.4 05/15/22 11:00 109 20 141/82 (101) 95 Nasal Cannula 2.00 05/15/22 10:00 113 12 142/81 (101) 95 Nasal Cannula 2.00 05/15/22 09:00 104 90/55 (67) 95 Nasal Cannula 2.00 05/15/22 08:00 36.2 05/15/22 08:00 94 Room Air 05/15/22 08:00 104 28 131/63 (85) 95 Nasal Cannula 2.00 05/15/22 07:36 Room Air 05/15/22 07:15 94 Room Air 05/15/22 07:00 98 23 136/78 (97) 94 Nasal Cannula 2.00 05/15/22 07:00 99 05/15/22 06:00 98 25 134/69 (90) 92 Nasal Cannula 2.00 05/15/22 05:00 96 22 136/75 (95) 97 Nasal Cannula 2.00 05/15/22 04:00 99 21 134/80 (98) 96 Nasal Cannula 2.00 05/15/22 03:51 36.7 Nasal Cannula 2.00 05/15/22 03:49 94 Nasal Cannula 2.00 05/15/22 03:00 98 25 140/74 (96) 97 Nasal Cannula 3.00 05/15/22 02:00 107 21 136/78 (97) 96 Nasal Cannula 3.00 05/15/22 01:00 105 26 137/75 (95) 96 Nasal Cannula 3.00 05/15/22 01:00 105 05/15/22 00:00 103 24 138/81 (100) 96 Nasal Cannula 3.00 05/14/22 23:46 94 Nasal Cannula 3.00 05/14/22 23:45 36.1 Nasal Cannula 3.00 05/14/22 23:00 101 22 146/73 (97) 98 Nasal Cannula 3.00 05/14/22 22:45 Nasal Cannula 3.00 05/14/22 22:00 98 21 139/72 (94) 97 OxyMask 10.00 05/14/22 21:45 92 22 140/73 (95) 95 OxyMask 10.00 05/14/22 21:30 95 23 142/67 (92) 97 OxyMask 10.00 05/14/22 21:15 94 21 146/75 (98) 98 OxyMask 10.00 05/14/22 21:15 OxyMask 10.00 05/14/22 21:10 36.6 22 155/74 (101) 98 OxyMask 10.00 05/14/22 21:00 95 05/14/22 21:00 95 24 155/74 (101) 95 OxyMask 10.00 05/14/22 21:00 36.8 95 12 95 OxyMask 10.00 05/14/22 21:00 19 150/71 (97) 96 OxyMask 10.00 05/14/22 20:55 97 OxyMask 9.00 05/14/22 20:50 OxyMask 10.00 05/14/22 20:50 20 161/86 (111) 97 OxyMask 10.00 05/14/22 20:45 98 21 161/86 (111) 96 OxyMask 10.00 05/14/22 20:40 21 157/78 (104) 98 OxyMask 10.00 05/14/22 20:34 94 Room Air 05/14/22 20:34 36.9 16 118/68 (85) 94 OxyMask 10.00 05/14/22 20:34 OxyMask 10.00 05/14/22 15:15 36.6 96 20 157/77 (103) 92 Room Air I & O 05/15/22 07:00 Intake Total 5150 ml Output Total 2825 ml Balance 2325 ml Capillary Refill : Less Than 3 Seconds General Appearance: No Apparent Distress, WD/WN Neck: Normal Inspection, Supple Respiratory: No Accessory Muscle Use, No Respiratory Distress Gastrointestinal: soft, tenderness, other (HERIBERTO drain with minimal SS drainage, Stoma pink and moist with no ostomy output in bag) Extremity: Normal Inspection, Normal Range of Motion Neurologic/Psychiatric: Alert, Oriented x3 Skin: Normal Color, Warm/Dry, Other (Abdominal incision C/D/I) Results Lab Laboratory Tests 05/15/22 02:41: White Blood Count 20.3H, Red Blood Count 4.11, Hemoglobin 12.8, Hematocrit 38, Mean Corpuscular Volume 93, Mean Corpuscular Hemoglobin 31, Mean Corpuscular Hemoglobin Concent 34, Red Cell Distribution Width 13.6, Platelet Count 275, Mean Platelet Volume 8.9L, Sodium Level 137, Potassium Level 3.3L, Chloride Level 99, Carbon Dioxide Level 21, Anion Gap 17H, Blood Urea Nitrogen 3L, Creatinine 0.56L, Estimat Glomerular Filtration Rate 104, BUN/Creatinine Ratio 5, Glucose Level 141H, Calcium Level 7.8L, Corrected Calcium 8.9, Phosphorus Level 3.6, Magnesium Level 1.4L, Total Bilirubin 0.4, Aspartate Amino Transf (AST/SGOT) 39H, Alanine Aminotransferase (ALT/SGPT) 51, Alkaline Phosphatase 99, Total Protein 5.2L, Albumin 2.6L 05/15/22 04:15: Blood Gas Puncture Site L RAD, Blood Gas Patient Temperature 36.8, Arterial Blood pH 7.37, Arterial Blood Partial Pressure CO2 45, Arterial Blood Partial Pressure O2 101H, Arterial Blood HCO3 25, Arterial Blood Total CO2 26.3, Arterial Blood Oxygen Saturation 99, Arterial Blood Base Excess 0.2, Tulio Test YES-POS, Blood Gas Ventilator Setting NO, Blood Gas Inspired Oxygen 2.5L Microbiology 05/14/22 MRSA Screen - Final, Complete MRSA not isolated 05/11/22 Blood Culture - Preliminary, Resulted No growth Assessment/Plan Assessment/Plan Assess & Plan/Chief Complaint A 62 year old female with sigmoid diverticulitis with microperforation, S/P low anterior sigmoid colon resection with end colostomy cont iv zosyn. add diflucan. increase ambulation VSS WBC 20.3 Pain and nausea meds IS CBC and CMP in AM Ok for 4th floor [employer] May 15, 2022 15:08
[2022-05-15] MEDS ORDERED: fentaNYL PCA 1,000 MCG/100 ML IV SCH (16:00)
--- NOTE | 2022-05-15 17:21 | Progress Note - Hospitalist ---
Subjective HPI/CC On Admission Date Seen by Provider: May 15, 2022 Time Seen by Provider: 17:00 Patient is a 62-year-old female with past medical history of hypertension, pulmonary embolism who presented to the emergency department due to abdominal pain. She reports right lower quadrant pain that started yesterday. She also had nausea and vomiting that started around 430 this morning. In the emergency room she was found to have free air likely from a perforated diverticula. She was admitted to surgery for further management. I have been consulted for medical management. She reports a history of hypertension and has not taken her medications today. She reports that her pain is a 5 out of 10. Subjective/Events-last exam She is having a lot of pain. She reports nausea. She has not been able to drink anything. Objective Exam Vital Signs Vital Signs Date Time Temp Pulse Resp B/P (MAP) Pulse Ox O2 Delivery O2 Flow Rate FiO2 05/15/22 16:00 94 Room Air 05/15/22 13:00 104 135/69 (91) 2.00 05/15/22 11:50 37.4 05/15/22 11:00 20 Capillary Refill : Less Than 3 Seconds General Appearance: Moderate Distress (uncomfortable), Obese Respiratory: Lungs Clear, No Respiratory Distress Cardiovascular: No Murmur, Tachycardia Gastrointestinal: Normal Bowel Sounds, Guarding, Tenderness, Other (drains, colostomy) Extremity: Normal Inspection, No Pedal Edema Neurologic/Psychiatric: Alert, Normal Mood/Affect Skin: Normal Color, Warm/Dry Results/Procedures Lab Laboratory Tests 05/15/22 02:41 Patient resulted labs reviewed. Imaging: Reviewed Imaging Report Assessment/Plan Assessment and Plan Assess & Plan/Chief Complaint Severe sepsis due to perforated diverticulitis Intraabdominal abscess Surgery primary s/p colectomy and colostomy 05/14 Zosyn and Diflucan BANKING MANAGEMENT CONSULTING MANAGER Clear liquids HTN Home meds held Hydralazine as needed Obesity Clinically significant, no acute management needs DVT ppx: Lovenox Critical Care Critically Ill Patient Diagnosis/Problems Diagnosis/Problems (1) Diverticulitis of colon with perforation Status: Acute (2) Severe sepsis Status: Acute (3) Perforated viscus Status: Acute (4) Intra-abdominal abscess Status: Acute STEVEN FRENCH MD May 15, 2022 17:21
[2022-05-15] MEDS ORDERED: hydrALAZINE (APESOLINE) 20 MG/ML VIAL IV PRN (17:30)
[2022-05-15] MEDS: HYDROmorphone 2 MG/ML VIAL (DILAUDID) IV PRN ×2 (19:32→23:05)
[2022-05-15] MEDS ORDERED: METOCLOPRAMIDE INJ 10 MG/2 ML (REGLAN) IVP PRN (20:00)
[2022-05-16] MEDS: ONDANSETRON 4 MG/2 ML (SDV) Z0FRAN IV PRN (00:27)
[2022-05-16] MEDS: PIPERACILLIN SODIUM/TAZOBACTAM 4.5 GM in NS (IVPB) 100 ML IV SCH ×3 (00:35→17:55)
[2022-05-16] MEDS: HYDROcodone/APAP 7.5 MG/325 MG (LORTAB, LORCET PLUS) TABLET PO PRN ×2 (03:07→14:12)
[2022-05-16 03:47] VITALS: BP 141/83
[2022-05-16] MEDS: LORazepam INJ 2 MG/ML (ATIVAN) VIAL IVP PRN ×2 (03:59→12:10)
[2022-05-16 04:50] LABS: BASOPHILS # (AUTO) 0.1 10^3/uL (0.0-0.1); BASOPHILS % (AUTO) 0 % (0-10); EOSINOPHILS # (AUTO) 0.1 10^3/uL (0.0-0.3); EOSINOPHILS % (AUTO) 1 % (0-10); HEMATOCRIT 36 % (35-52); HEMOGLOBIN 12.2 g/dL (11.5-16.0); LYMPHOCYTES # (AUTO) 0.9 10^3/uL (1.0-4.0); LYMPHOCYTES % (AUTO) 5 % (12-44); MEAN CORPUSCULAR HEMOGLOBIN 31 pg (25-34); MEAN CORPUSCULAR HGB CONC 34 g/dL (32-36); MEAN CORPUSCULAR VOLUME 92 fL (80-99); MEAN PLATELET VOLUME 8.9 fL (9.0-12.2); MONOCYTES # (AUTO) 2.4 10^3/uL (0.0-1.0); MONOCYTES % (AUTO) 13 % (0-12); NEUTROPHILS # (AUTO) 15.7 10^3/uL (1.8-7.8); NEUTROPHILS % (AUTO) 81 % (42-75); PLATELET COUNT 253 10^3/uL (130-400); WHITE BLOOD COUNT 19.5 10^3/uL (4.3-11.0)
[2022-05-16 05:09] LABS: ALBUMIN 2.2 GM/DL (3.2-4.5); BILIRUBIN,TOTAL 0.4 MG/DL (0.1-1.0); CALCIUM 7.3 MG/DL (8.5-10.1); CREATININE SERUM 0.54 MG/DL (0.60-1.30); MAGNESIUM 1.8 MG/DL (1.6-2.4); PHOSPHORUS 2.1 MG/DL (2.3-4.7); POTASSIUM 3.5 MMOL/L (3.6-5.0); TOTAL PROTEIN 4.7 GM/DL (6.4-8.2)
[2022-05-16] MEDS: 1/2 NS W/KCL 20 MEQ/L 1,000 ML IV SCH (05:18)
[2022-05-16] MEDS: HYDROmorphone 2 MG/ML VIAL (DILAUDID) IV PRN (05:19)
[2022-05-16] MEDS: KCL 20 MEQ TAB (K-DUR) PO SCH (05:20)
[2022-05-16] MEDS: MAGNESIUM 1 GM/100 ML IVPB 100 ML IV SCH (05:20)
[2022-05-16] MEDS: POTASSIUM CL 10MEQ/50ML IVPB 50 ML IV SCH (05:20)
[2022-05-16] MEDS: RT-ALBUTEROL SULF 2.5 MG/3 ML PRE-MIX VIAL INH SCH ×2 (07:07→14:19)
[2022-05-16 08:00] VITALS: BP 124/74
--- NOTE | 2022-05-16 08:51 | Progress Note ---
Subjective Date Seen by a Provider: May 16, 2022 Time Seen by a Provider: 08:30 Subjective/Events-last exam Patient seen and reports doing ok. Still having abdominal pain as well as nausea and dry heaves occasionally. She reports that pain is better. Tolerating small sips of clear liquids. Objective Exam Vital Signs Date Time Temp Pulse Resp B/P (MAP) Pulse Ox O2 Delivery O2 Flow Rate FiO2 05/16/22 08:00 36.6 109 18 124/74 (91) 91 Room Air 05/16/22 07:08 92 Room Air 05/16/22 07:00 103 05/16/22 06:37 18 05/16/22 03:47 36.6 105 16 141/83 (102) 94 Room Air 05/16/22 01:00 101 05/15/22 23:37 36.0 110 16 135/83 (100) 92 Room Air 05/15/22 22:14 91 Room Air 05/15/22 20:28 94 Room Air 05/15/22 19:49 37.0 108 16 145/72 (96) 91 Room Air 05/15/22 19:00 109 05/15/22 18:23 91 Room Air 05/15/22 18:01 Room Air 05/15/22 17:30 36.9 112 12 135/75 (95) 92 Room Air 2.00 05/15/22 16:00 112 132/68 (89) 32 Nasal Cannula 2.00 05/15/22 16:00 94 Room Air 05/15/22 15:00 114 146/75 (98) 27 Nasal Cannula 2.00 05/15/22 14:00 112 142/78 (99) 94 Nasal Cannula 2.00 05/15/22 13:00 104 135/69 (91) 92 Nasal Cannula 2.00 05/15/22 13:00 105 135/67 (89) 92 Nasal Cannula 2.00 05/15/22 13:00 102 05/15/22 12:00 94 Room Air 05/15/22 11:50 37.4 05/15/22 11:00 109 20 141/82 (101) 95 Nasal Cannula 2.00 05/15/22 10:00 113 12 142/81 (101) 95 Nasal Cannula 2.00 05/15/22 09:00 104 90/55 (67) 95 Nasal Cannula 2.00 I & O 05/16/22 07:00 Intake Total 567.8 ml Output Total 3170 ml Balance -2602.2 ml Capillary Refill : Less Than 3 Seconds General Appearance: No Apparent Distress, WD/WN Neck: Normal Inspection, Supple Respiratory: No Accessory Muscle Use, No Respiratory Distress Gastrointestinal: soft, tenderness, other (HERIBERTO drain with SS drainage) Extremity: Normal Inspection, Normal Range of Motion Neurologic/Psychiatric: Alert, Oriented x3 Skin: Normal Color, Warm/Dry, Other (abdominal incisions C/D/I) Results Lab Laboratory Tests 05/16/22 04:45: White Blood Count 19.5H, Red Blood Count 3.88, Hemoglobin 12.2, Hematocrit 36, Mean Corpuscular Volume 92, Mean Corpuscular Hemoglobin 31, Mean Corpuscular Hemoglobin Concent 34, Red Cell Distribution Width 13.6, Platelet Count 253, Mean Platelet Volume 8.9L, Immature Granulocyte % (Auto) 1, Neutrophils (%) (Auto) 81H, Lymphocytes (%) (Auto) 5L, Monocytes (%) (Auto) 13H, Eosinophils (%) (Auto) 1, Basophils (%) (Auto) 0, Neutrophils # (Auto) 15.7H, Lymphocytes # (Auto) 0.9L, Monocytes # (Auto) 2.4H, Eosinophils # (Auto) 0.1, Basophils # (Auto) 0.1, Immature Granulocyte # (Auto) 0.3H, Sodium Level 133L, Potassium Level 3.5L, Chloride Level 99, Carbon Dioxide Level 23, Anion Gap 11, Blood Urea Nitrogen 4L, Creatinine 0.54L, Estimat Glomerular Filtration Rate 105, BUN/Creatinine Ratio 7, Glucose Level 131H, Calcium Level 7.3L, Corrected Calcium 8.7, Phosphorus Level 2.1L, Magnesium Level 1.8, Total Bilirubin 0.4, Aspartate Amino Transf (AST/SGOT) 16, Alanine Aminotransferase (ALT/SGPT) 25, Alkaline Phosphatase 71, Total Protein 4.7L, Albumin 2.2L Microbiology 05/14/22 MRSA Screen - Final, Complete MRSA not isolated 05/11/22 Blood Culture - Preliminary, Resulted No growth Assessment/Plan Assessment/Plan Assess & Plan/Chief Complaint A 62 year old female with sigmoid diverticulitis with microperforation, S/P low anterior sigmoid colon resection with end colostomy cont iv zosyn. add diflucan. increase ambulation VSS WBC 19.5 Pain and nausea meds IS CBC and CMP in AM Encourage ambulation when more awake and alert KAMAR BOYKIN TEA BAG MACHINE TENDER May 16, 2022 08:51
[2022-05-16] MEDS ORDERED: KCL 20 MEQ TAB (K-DUR) PO ONE (09:00)
[2022-05-16] MEDS: PANTOPRAZOLE 40 MG (PROTONIX) VIAL IV SCH (09:49)
[2022-05-16] MEDS: polyethylene glycoL POWDER 17 GM (MIRALAX) PACK PO SCH ×2 (09:50→20:46)
[2022-05-16] MEDS: SENNA W/DOCUSATE (SENOKOT S) TABLET PO SCH (09:51)
[2022-05-16] MEDS: FLUCONAZOLE 100 MG/50 ML 50 ML IV SCH (09:52)
[2022-05-16] MEDS ORDERED: NS 100 ML (IVPB) BAG IV ONE (11:15)
[2022-05-16] MEDS ORDERED: HOLD METFORMIN - RECEIVED CONTRAST 20 ML VIAL IV SCH (11:15)
[2022-05-16] MEDS ORDERED: CATHETER FLUSH 10 ML SYR IV PRN (11:15)
[2022-05-16] MEDS ORDERED: IOHEXOL 350 MG/ML 100 ML (OMNIPAQUE 350) VIAL IV ONE (11:15)
[2022-05-16 11:35] VITALS: BP 135/66
[2022-05-16] MEDS: NS IV 1000 ML 1,000 ML IV SCH ×2 (12:04→19:43)
--- NOTE | 2022-05-16 12:15 | Diagnostic Imaging Report ---
PROCEDURE: CT abdomen and pelvis with contrast. TECHNIQUE: Multiple contiguous axial images were obtained through the abdomen and pelvis after administration of intravenous contrast. Auto Exposure Controls were utilized during the CT exam to meet ALARA standards for radiation dose reduction. All CT scans use one or more of the following dose optimizing techniques: automated exposure control, MA and/or KvP adjustment based on patient size and exam type or iterative reconstruction. INDICATION: Perforated hollow viscus, status post surgery 2 days ago. Patient has abdominal pain and nausea. Correlation is made with CT study from 05/14/2022. FINDINGS: Trace bilateral pleural effusions are noted. Right middle lobe nodule is again seen. There are some bibasilar infiltrates or atelectasis. Perihepatic free fluid has increased since prior exam. Pneumoperitoneum persists, however the overall amount of free air does appear to be reduced since exam 2 days earlier. Liver demonstrates hepatic steatosis. Gallbladder surgically absent. Pancreas and spleen are unremarkable. There is no adrenal mass. Kidneys appear stable. Aorta is nonaneurysmal. Postoperative changes are noted since 2 days ago. There has been resection of portion of the sigmoid colon. There is now left lower quadrant ostomy. Previously noted gas and fluid collection in the right lower quadrant is no longer visualized. Surgical drain is in place. There is some trace free fluid in the left abdomen. There are some fluid-filled and slightly dilated small bowel loops in the central abdomen but no transition is seen. Findings likely owing to ileus. Midline skin incision is noted. IMPRESSION: 1. Small bilateral pleural effusions and bibasilar infiltrates or atelectasis. 2. Postop changes since exam 2 days earlier. There has been a sigmoid resection with left lower quadrant ostomy. There has been overall reduction in amount of pneumoperitoneum. In addition, previously noted right lower quadrant abscess is no longer visualized. Surgical drains are in place. There is a small amount of free fluid in the abdomen. There has been some increase in amount of perihepatic free fluid. 3. Mildly dilated fluid-filled small bowel loop central abdomen, likely owing to postoperative ileus. Dictated by: Dictated on workstation # [id number]
[2022-05-16 16:00] VITALS: BP 121/71
--- NOTE | 2022-05-16 18:00 | Progress Note - Hospitalist ---
Subjective HPI/CC On Admission Date Seen by Provider: May 16, 2022 Time Seen by Provider: 10:50 Patient is a 62-year-old female with past medical history of hypertension, pulmonary embolism who presented to the emergency department due to abdominal pain. She reports right lower quadrant pain that started yesterday. She also had nausea and vomiting that started around 430 this morning. In the emergency room she was found to have free air likely from a perforated diverticula. She was admitted to surgery for further management. I have been consulted for medical management. She reports a history of hypertension and has not taken her medications today. She reports that her pain is a 5 out of 10. Subjective/Events-last exam She is laying in bed with her eyes closed. She appears uncomfortable. She says her pain is better initially, but then winces in pain and says she has 10/10 sharp right sided abdominal pain. She has had nausea and vomiting this morning. Objective Exam Vital Signs Vital Signs Date Time Temp Pulse Resp B/P (MAP) Pulse Ox O2 Delivery O2 Flow Rate FiO2 05/16/22 16:00 36.9 118 20 121/71 (88) 91 Room Air 05/15/22 17:30 2.00 Capillary Refill : Less Than 3 Seconds General Appearance: Anxious, Mild Distress (uncomfortable), Obese Respiratory: No Respiratory Distress, Decreased Breath Sounds Cardiovascular: No Murmur, Tachycardia Gastrointestinal: Normal Bowel Sounds, Guarding, Tenderness, Other (colostomy, drain) Extremity: Normal Inspection, No Pedal Edema Neurologic/Psychiatric: Alert, Motor Weakness Skin: Warm/Dry, Pallor Results/Procedures Lab Laboratory Tests 05/16/22 04:45 Patient resulted labs reviewed. 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
[2022-05-16 19:47] VITALS: BP 120/61
[2022-05-17] VITALS (7 sets, daily range): BP systolic 120–158; BP diastolic 61–85
[2022-05-17] MEDS: PIPERACILLIN SODIUM/TAZOBACTAM 4.5 GM in NS (IVPB) 100 ML IV SCH ×3 (00:24→16:33)
[2022-05-17] MEDS: HYDROmorphone 2 MG/ML VIAL (DILAUDID) IV PRN ×3 (02:13→19:43)
[2022-05-17] MEDS: NS IV 1000 ML 1,000 ML IV SCH ×3 (03:29→19:58)
[2022-05-17 05:13] LABS: BASOPHILS # (AUTO) 0.1 10^3/uL (0.0-0.1); BASOPHILS % (AUTO) 0 % (0-10); EOSINOPHILS # (AUTO) 0.3 10^3/uL (0.0-0.3); EOSINOPHILS % (AUTO) 2 % (0-10); HEMATOCRIT 32 % (35-52); HEMOGLOBIN 10.7 g/dL (11.5-16.0); LYMPHOCYTES # (AUTO) 1.2 10^3/uL (1.0-4.0); LYMPHOCYTES % (AUTO) 7 % (12-44); MEAN CORPUSCULAR HEMOGLOBIN 31 pg (25-34); MEAN CORPUSCULAR HGB CONC 34 g/dL (32-36); MEAN CORPUSCULAR VOLUME 92 fL (80-99); MEAN PLATELET VOLUME 8.7 fL (9.0-12.2); MONOCYTES # (AUTO) 1.5 10^3/uL (0.0-1.0); MONOCYTES % (AUTO) 9 % (0-12); NEUTROPHILS # (AUTO) 13.2 10^3/uL (1.8-7.8); NEUTROPHILS % (AUTO) 79 % (42-75); PLATELET COUNT 259 10^3/uL (130-400); WHITE BLOOD COUNT 16.7 10^3/uL (4.3-11.0)
[2022-05-17 05:30] LABS: ALBUMIN 2.1 GM/DL (3.2-4.5); BILIRUBIN,TOTAL 0.4 MG/DL (0.1-1.0); CALCIUM 7.5 MG/DL (8.5-10.1); CREATININE SERUM 0.51 MG/DL (0.60-1.30); PHOSPHORUS 2.2 MG/DL (2.3-4.7); POTASSIUM 3.5 MMOL/L (3.6-5.0); TOTAL PROTEIN 4.4 GM/DL (6.4-8.2)
[2022-05-17] MEDS: MAGNESIUM 1 GM/100 ML IVPB 100 ML IV SCH (05:39)
[2022-05-17] MEDS: POTASSIUM CL 10MEQ/50ML IVPB 50 ML IV SCH (05:39)
[2022-05-17] MEDS: KCL 20 MEQ TAB (K-DUR) PO SCH (05:39)
[2022-05-17] MEDS ORDERED: KCL 20 MEQ TAB (K-DUR) PO ONE (05:45)
[2022-05-17] MEDS: HYDROcodone/APAP 7.5 MG/325 MG (LORTAB, LORCET PLUS) TABLET PO PRN (08:41)
[2022-05-17] MEDS: FLUCONAZOLE 100 MG/50 ML 50 ML IV SCH (08:54)
--- NOTE | 2022-05-17 08:56 | Progress Note - Surgery ---
CARROLL CORTEZ 05/17/22 0856: Subjective Date Seen by a Provider: May 17, 2022 Time Seen by a Provider: 06:55 Subjective/Events-last exam Patient is in pain this morning. She is endorsing abdominal pain constantly at 4/10 and as high as 8/10 when she moves wrong. She has been using her IS and a mbulating with assistance. Yesterday she walked in her room, said she would try and do more today. She still has HERIBERTO drain, ostomy, and sultana in place. Review of Systems General: No Chills; Night Sweats HEENT: Head Aches; No Dysphasia, No Sore Throat Pulmonary: Dyspnea (has been present last few days, associated with anxiety); No Cough Cardiovascular: Lt Headedness; No: Chest Pain Gastrointestinal: Nausea (had an epidsode at midnight, not present now), Abdominal Pain (RLQ, epigastric); No: Vomiting Genitourinary: No Dysuria; Other (sultana in place, says she still feels urgency) Musculoskeletal: No: neck pain, back pain, leg pain Neurological: Other (anxiety); No: Confusion Objective Exam Vital Signs Date Time Temp Pulse Resp B/P (MAP) Pulse Ox O2 Delivery O2 Flow Rate FiO2 05/17/22 07:25 35.7 100 18 148/70 (96) 95 Room Air 05/17/22 07:00 96 05/17/22 05:14 18 05/17/22 03:56 36.1 102 18 133/79 (97) 95 Nasal Cannula 1.00 05/17/22 02:28 116 148/73 (98) 96 Nasal Cannula 1.00 05/17/22 01:00 106 05/17/22 00:07 36.8 97 16 134/63 (86) 97 Room Air 05/16/22 21:30 94 Room Air 05/16/22 20:36 94 Room Air 05/16/22 19:47 36.4 118 20 120/61 (80) 95 Room Air 05/16/22 19:00 111 05/16/22 18:48 92 Room Air 05/16/22 18:05 18 05/16/22 16:00 36.9 118 20 121/71 (88) 91 Room Air 05/16/22 14:20 92 Room Air 05/16/22 13:00 101 05/16/22 11:35 36.9 110 18 135/66 (89) 92 Room Air 05/16/22 10:54 93 Room Air I & O 05/17/22 07:00 Intake Total 1810 ml Output Total 3160 ml Balance -1350 ml Capillary Refill : Less Than 3 Seconds General Appearance: Anxious, Mild Distress, Obese HEENT: PERRL/EOMI, Moist Mucous Membranes Neck: Non Tender, Supple Respiratory: Lungs Clear, Normal Breath Sounds, No Accessory Muscle Use, No Respiratory Distress, Decreased Breath Sounds Cardiovascular: Regular Rate, Rhythm, No Murmur Peripheral Pulses: 2+ Dorsalis Pedis (R), 2+ Left Dors-Pedis (L), 2+ Radial Pulses (R), 2+ Radial Pulses (L) Gastrointestinal: soft, tenderness (epigastric, RLQ), other (HERIBERTO drain with SS drainage, midline incision c/d/i, ostomy has fecal matter present) Extremity: Non Tender, No Calf Tenderness, No Pedal Edema Neurologic/Psychiatric: Alert, Oriented x3 Skin: Warm/Dry, Pallor Lymphatic: No Adenopathy (cervical) Results Lab Laboratory Tests 05/17/22 05:00: White Blood Count 16.7H, Red Blood Count 3.43L, Hemoglobin 10.7L, Hematocrit 32L , Mean Corpuscular Volume 92, Mean Corpuscular Hemoglobin 31, Mean Corpuscular Hemoglobin Concent 34, Red Cell Distribution Width 13.7, Platelet Count 259, Mean Platelet Volume 8.7L, Immature Granulocyte % (Auto) 2, Neutrophils (%) (Auto) 79H, Lymphocytes (%) (Auto) 7L, Monocytes (%) (Auto) 9, Eosinophils (%) (Auto) 2, Basophils (%) (Auto) 0, Neutrophils # (Auto) 13.2H, Lymphocytes # (Auto) 1.2, Monocytes # (Auto) 1.5H, Eosinophils # (Auto) 0.3, Basophils # (Auto) 0.1, Immature Granulocyte # (Auto) 0.4H, Sodium Level 140, Potassium Level 3.5L, Chloride Level 104, Carbon Dioxide Level 24, Anion Gap 12, Blood Urea Nitrogen 4L, Creatinine 0.51L, Estimat Glomerular Filtration Rate 106, BUN/ Creatinine Ratio 8, Glucose Level 110H, Calcium Level 7.5L, Corrected Calcium 9.0, Phosphorus Level 2.2L, Magnesium Level 2.0, Total Bilirubin 0.4, Aspartate Amino Transf (AST/SGOT) 13, Alanine Aminotransferase (ALT/SGPT) 18, Alkaline Phosphatase 59, Total Protein 4.4L, Albumin 2.1L Microbiology 05/14/22 MRSA Screen - Final, Complete MRSA not isolated 05/11/22 Blood Culture - Final, Complete No growth Assessment/Plan Assessment/Plan Assessment/Plan S/P low anterior sigmoid colon resection with end colostomy Abdominal pain Continue IV zosyn. IV ativan for anxiety. IV dilauded and oral lortab for pain control. Encourage patient to ambulate as much as possible today, continue using IS. Patient on clear liquid diet, said she would be willing to try eating something. GABRIEL MOISE DO 05/17/22 1231: Subjective Time Seen by a Provider: 10:23 Subjective/Events-last exam Pt seen and examined, she was asleep and very hard to arouse. Pt's family in the room, who stated she was in a lot of pain and just got meds plus her CORPORATE LEARNING CONSULTANT. She has not been moving very much, only stood at bedside once. Review of Systems General: No Chills; Night Sweats HEENT: Head Aches Pulmonary: Dyspnea (has been present last few days, associated with anxiety); No Cough Cardiovascular: Lt Headedness; No: Chest Pain Gastrointestinal: Nausea (had an epidsode at midnight, not present now), Abdominal Pain (RLQ, epigastric); No: Vomiting Genitourinary: No Dysuria; Other (sultana in place, says she still feels urgency) Neurological: Other (anxiety) Objective Exam General Appearance: No Apparent Distress (sleeping), Anxious, Obese HEENT: PERRL/EOMI, Moist Mucous Membranes Respiratory: Lungs Clear, No Accessory Muscle Use, No Respiratory Distress, Decreased Breath Sounds Cardiovascular: Regular Rate, Rhythm, No Murmur Gastrointestinal: soft, tenderness (epigastric, RLQ), other (HERIBERTO drain with SS drainage, midline incision c/d/i, ostomy has fecal matter present) Skin: Warm/Dry Assessment/Plan Assessment/Plan Assessment/Plan Hypokalemia - will monitor and may need to restart K+ supplementation Anemia - stable since she came in and will continue with CBC Leukocytosis- improving slowly S/P low anterior sigmoid colon resection with end colostomy Abdominal pain Continue IV zosyn. IV ativan for anxiety. IV dilauded for breakthrough, will d/c Fentanly CORPORATE LEARNING CONSULTANT and oral lortab for pain control. Encourage patient to ambulate as much as possible today, continue using IS. Will increase to soft, said she would be willing to try eating something. Will d/c sultana. Supervisory-Addendum Brief Verification & Attestation Participated in pt care: history, MDM, physical Personally performed: exam, history, MDM, supervision of care Care discussed with: Medical Student Procedures: n/a Verification and Attestation of Medical Student E/M Service A medical student performed and documented this service. I then reviewed and verified all information documented by the medical student and made modifications to such information, when appropriate. I personally performed a physical exam, medical decision making and then discussed any differences between the notes and made revisions as necessary to create one note. Gabriel Moise , 05/17/22 , 12:31 CARROLL CORTEZ May 17, 2022 08:56 GABRIEL MOISE DO May 17, 2022 12:31
[2022-05-17] MEDS: PANTOPRAZOLE 40 MG (PROTONIX) VIAL IV SCH (08:59)
[2022-05-17] MEDS: SENNA W/DOCUSATE (SENOKOT S) TABLET PO SCH (09:05)
[2022-05-17] MEDS: polyethylene glycoL POWDER 17 GM (MIRALAX) PACK PO SCH (09:05)
[2022-05-17] MEDS: LORazepam INJ 2 MG/ML (ATIVAN) VIAL IVP PRN (09:42)
--- NOTE | 2022-05-17 10:10 | Physical Therapy Progress Note ---
Therapy Progress Note Orders received, attempted PT evaluation. Pt does not open her eyes nor answer any questions. Pts family at bedside states that she is having more pain this date, and has been unable to tolerated position changes. Will hold evaluation and follow up Thursday to initiate PT evaluation. DIMITRIOS LEWIS PT May 17, 2022 10:10
--- NOTE | 2022-05-17 18:07 | Progress Note - Hospitalist ---
Subjective HPI/CC On Admission Date Seen by Provider: May 17, 2022 Time Seen by Provider: 11:45 Patient is a 62-year-old female with past medical history of hypertension, pulmonary embolism who presented to the emergency department due to abdominal pain. She reports right lower quadrant pain that started yesterday. She also had nausea and vomiting that started around 430 this morning. In the emergency room she was found to have free air likely from a perforated diverticula. She was admitted to surgery for further management. I have been consulted for medical management. She reports a history of hypertension and has not taken her medications today. She reports that her pain is a 5 out of 10. Subjective/Events-last exam She is sleeping upon my arrival. She appears more comfortable today. Her pain is a bit better. Objective Exam Vital Signs Vital Signs Date Time Temp Pulse Resp B/P (MAP) Pulse Ox O2 Delivery O2 Flow Rate FiO2 05/17/22 17:57 18 05/17/22 16:18 36.6 109 144/80 (101) 94 Room Air 05/17/22 09:11 0.00 Capillary Refill : Less Than 3 Seconds General Appearance: No Apparent Distress, Obese Respiratory: Lungs Clear, No Respiratory Distress Cardiovascular: Regular Rate, Rhythm, No Murmur Gastrointestinal: Normal Bowel Sounds; No Guarding; Tenderness Extremity: Normal Inspection, No Pedal Edema Neurologic/Psychiatric: Alert, Normal Mood/Affect Results/Procedures Lab Laboratory Tests 05/17/22 05:00 Patient resulted labs reviewed. Imaging: Reviewed Imaging Report Assessment/Plan Assessment and Plan Assess & Plan/Chief Complaint Severe sepsis due to perforated diverticulitis Intraabdominal abscess Surgery primary s/p colectomy and colostomy 05/14 Zosyn and Diflucan Advancing diet Ambulation Pain regimen HTN Home meds held Hydralazine as needed Obesity Clinically significant, no acute management needs DVT ppx: Lovenox Diagnosis/Problems Diagnosis/Problems (1) Diverticulitis of colon with perforation Status: Acute (2) Severe sepsis Status: Acute (3) Perforated viscus Status: Acute (4) Intra-abdominal abscess Status: Acute STEVEN FRENCH MD May 17, 2022 18:06
[2022-05-17] MEDS ORDERED: DOCUSATE SODIUM 10 MG/ML 10 ML UDC (COLACE) PO SCH (21:00)
[2022-05-18] VITALS: BP 155/88
[2022-05-18] MEDS: NS IV 1000 ML 1,000 ML IV SCH ×3 (00:05→17:37)
[2022-05-18] MEDS: HYDROmorphone 2 MG/ML VIAL (DILAUDID) IV PRN (00:05)
[2022-05-18] MEDS: PIPERACILLIN SODIUM/TAZOBACTAM 4.5 GM in NS (IVPB) 100 ML IV SCH ×3 (00:05→17:37)
[2022-05-18] MEDS: HYDROcodone/APAP 7.5 MG/325 MG (LORTAB, LORCET PLUS) TABLET PO PRN ×3 (02:55→21:45)
[2022-05-18] MEDS: LORazepam INJ 2 MG/ML (ATIVAN) VIAL IVP PRN (03:04)
[2022-05-18 03:59] VITALS: BP 142/84
[2022-05-18 05:57] LABS: BASOPHILS # (AUTO) 0.1 10^3/uL (0.0-0.1); BASOPHILS % (AUTO) 0 % (0-10); EOSINOPHILS # (AUTO) 0.4 10^3/uL (0.0-0.3); EOSINOPHILS % (AUTO) 3 % (0-10); HEMATOCRIT 33 % (35-52); HEMOGLOBIN 10.9 g/dL (11.5-16.0); LYMPHOCYTES # (AUTO) 1.3 10^3/uL (1.0-4.0); LYMPHOCYTES % (AUTO) 9 % (12-44); MEAN CORPUSCULAR HEMOGLOBIN 31 pg (25-34); MEAN CORPUSCULAR HGB CONC 33 g/dL (32-36); MEAN CORPUSCULAR VOLUME 93 fL (80-99); MEAN PLATELET VOLUME 8.6 fL (9.0-12.2); MONOCYTES # (AUTO) 1.2 10^3/uL (0.0-1.0); MONOCYTES % (AUTO) 8 % (0-12); NEUTROPHILS # (AUTO) 10.8 10^3/uL (1.8-7.8); NEUTROPHILS % (AUTO) 76 % (42-75); PLATELET COUNT 288 10^3/uL (130-400); WHITE BLOOD COUNT 14.2 10^3/uL (4.3-11.0)
[2022-05-18 06:13] LABS: CALCIUM 7.8 MG/DL (8.5-10.1); CREATININE SERUM 0.51 MG/DL (0.60-1.30); MAGNESIUM 1.9 MG/DL (1.6-2.4); POTASSIUM 3.4 MMOL/L (3.6-5.0)
[2022-05-18] MEDS: KCL 20 MEQ TAB (K-DUR) PO SCH (06:24)
[2022-05-18] MEDS: MAGNESIUM 1 GM/100 ML IVPB 100 ML IV SCH (06:24)
[2022-05-18] MEDS: POTASSIUM CL 10MEQ/50ML IVPB 50 ML IV SCH (06:24)
[2022-05-18 07:22] VITALS: BP 172/81
--- NOTE | 2022-05-18 07:28 | Progress Note - Surgery ---
CARROLL CORTEZ 05/18/22 0728: Subjective Date Seen by a Provider: May 18, 2022 Time Seen by a Provider: 07:10 Subjective/Events-last exam Patient claims she is feeling worse than yesterday because of the pain. Pain is rated 9/10, worse than it has been. Sultana still in place, HERIBERTO drain still has output of SS fluid. She ambulated yesterday afternoon and got in the chair and said that made her feel much better.She has been using her IS. Ostomy in place. RN reported patient was agitated last night, it was discovered that she has been taking citalopram for 20 years and she has not been receiving that since she has been in the hospital. She was very pleasant when I was in the room with her. Review of Systems Pulmonary: No Dyspnea; Cough (after she uses IS) Cardiovascular: No: Chest Pain, Lt Headedness Gastrointestinal: Abdominal Pain; No: Nausea, Vomiting Genitourinary: Other (sultana in place but she still feels urgency) Objective Exam Vital Signs Date Time Temp Pulse Resp B/P (MAP) Pulse Ox O2 Delivery O2 Flow Rate FiO2 05/18/22 06:52 96 Room Air 05/18/22 06:00 18 05/18/22 03:59 36.9 101 16 142/84 (103) 95 Room Air 05/18/22 02:32 94 Room Air 05/18/22 01:00 102 05/18/22 00:00 36.7 111 16 155/88 (110) 98 Room Air 05/17/22 22:10 94 Room Air 05/17/22 21:20 94 Room Air 05/17/22 20:16 36.7 100 16 158/85 (109) 98 Room Air 05/17/22 20:00 94 Room Air 05/17/22 19:14 97 Room Air 05/17/22 19:00 102 05/17/22 17:57 18 05/17/22 16:18 36.6 109 18 144/80 (101) 94 Room Air 05/17/22 14:56 98 Room Air 05/17/22 12:28 105 05/17/22 12:21 37.0 107 20 137/71 (93) 94 Room Air 05/17/22 09:11 95 Room Air 0.00 05/17/22 07:25 35.7 100 18 148/70 (96) 95 Room Air I & O 05/18/22 07:00 Intake Total 1295 ml Output Total 4495 ml Balance -3200 ml Capillary Refill : Less Than 3 Seconds General Appearance: Moderate Distress (from pain), Obese HEENT: PERRL/EOMI, Moist Mucous Membranes Neck: Non Tender, Supple Respiratory: Lungs Clear, Normal Breath Sounds, No Accessory Muscle Use, No Respiratory Distress Cardiovascular: No Murmur, Tachycardia Peripheral Pulses: 2+ Dorsalis Pedis (R), 2+ Left Dors-Pedis (L), 2+ Radial Pulses (R), 2+ Radial Pulses (L) Gastrointestinal: soft, tenderness (RLQ), other (HERIBERTO drain with SS drainage, midline incision c/d/i, ostomy has fecal matter present) Extremity: Non Tender, No Calf Tenderness Neurologic/Psychiatric: Alert, Oriented x3 Skin: Normal Color, Warm/Dry Lymphatic: No Adenopathy (cervical) Results Lab Laboratory Tests 05/18/22 05:45: White Blood Count 14.2H, Red Blood Count 3.51L, Hemoglobin 10.9L, Hematocrit 33L , Mean Corpuscular Volume 93, Mean Corpuscular Hemoglobin 31, Mean Corpuscular Hemoglobin Concent 33, Red Cell Distribution Width 13.7, Platelet Count 288, Mean Platelet Volume 8.6L, Immature Granulocyte % (Auto) 4, Neutrophils (%) (Auto) 76H, Lymphocytes (%) (Auto) 9L, Monocytes (%) (Auto) 8, Eosinophils (%) (Auto) 3, Basophils (%) (Auto) 0, Neutrophils # (Auto) 10.8H, Lymphocytes # (Auto) 1.3, Monocytes # (Auto) 1.2H, Eosinophils # (Auto) 0.4H, Basophils # (Auto) 0.1, Immature Granulocyte # (Auto) 0.5H, Sodium Level 138, Potassium Level 3.4L, Chloride Level 103, Carbon Dioxide Level 24, Anion Gap 11, Blood Urea Nitrogen 5L, Creatinine 0.51L, Estimat Glomerular Filtration Rate 106, BUN/Creatinine Ratio 10, Glucose Level 103, Calcium Level 7.8L, Magnesium Level 1.9 Microbiology 05/14/22 MRSA Screen - Final, Complete MRSA not isolated 05/11/22 Blood Culture - Final, Complete No growth Assessment/Plan Assessment/Plan Assessment/Plan Hypokalemia Anemia Leukocytosis S/P low anterior sigmoid colon resection with end colostomy Abdominal pain Continue IV zosyn. IV ativan for anxiety. Lortab for pain control and IV dilauded for breakthrough. Encourage patient to ambulate as much as possible today, continue using IS. Continue on soft diet which she tolerated well. Will d/c sultana. 40mEq of KCl given PO this AM. Anemia is stable since admission, monitor with AM labs. GABRIEL MOISE DO 05/18/22 1413: Subjective Time Seen by a Provider: 12:42 Subjective/Events-last exam Pt seen and examined, she looks like a new person today. She looks healthy, is awake and talkative; yesterday I couldn't wake her up. She states pain is much better today and nurse states no pain meds since 3am. Tolerating clears, will increase to soft. Review of Systems Pulmonary: No Dyspnea; Cough (after she uses IS) Cardiovascular: No: Chest Pain, Lt Headedness Gastrointestinal: No: Nausea, Vomiting Genitourinary: Other (sultana still in place ) Objective Exam General Appearance: Mild Distress, Obese HEENT: PERRL/EOMI, Moist Mucous Membranes Respiratory: Lungs Clear, Normal Breath Sounds, No Accessory Muscle Use, No Respiratory Distress Cardiovascular: No Murmur, Tachycardia Gastrointestinal: soft, tenderness (RLQ), other (HERIBERTO drain with SS drainage, midline incision c/d/i, ostomy pink and functioning) Extremity: Non Tender, No Calf Tenderness Neurologic/Psychiatric: Alert, Oriented x3 Skin: Normal Color, Warm/Dry Assessment/Plan Assessment/Plan Assessment/Plan Hypokalemia - mild, but still under normal Anemia Leukocytosis S/P low anterior sigmoid colon resection with end colostomy Abdominal pain Continue IV zosyn. IV ativan for anxiety. Lortab for pain control and IV dilauded for breakthrough. Encourage patient to ambulate as much as possible today, continue using IS. Continue on soft diet which she tolerated well. Will d/c sultana. 40mEq of KCl given PO this AM. Anemia is stable since admission, monitor with AM labs. Supervisory-Addendum Brief Verification & Attestation Participated in pt care: history, MDM, physical Personally performed: exam, history, MDM, supervision of care Care discussed with: Medical Student Procedures: n/a Verification and Attestation of Medical Student E/M Service A medical student performed and documented this service. I then reviewed and verified all information documented by the medical student and made modifications to such information, when appropriate. I personally performed a physical exam, medical decision making and then discussed any differences between the notes and made revisions as necessary to create one note. Gabriel Moise , 05/18/22 , 14:12 CARROLL CORTEZ May 18, 2022 07:28 GABRIEL MOISE DO May 18, 2022 14:13
[2022-05-18] MEDS ORDERED: KCL 20 MEQ TAB (K-DUR) PO ONE (09:00)
[2022-05-18] MEDS: LORATADINE (CLARITIN) 10 MG TAB PO SCH (09:15)
[2022-05-18] MEDS: ESTRADIOL 1 MG TAB (ESTRACE) PO SCH (09:15)
[2022-05-18] MEDS: meTOproloL SUCCINATE 50 MG (TOPROL XL) TAB PO SCH (09:15)
[2022-05-18] MEDS: PANTOPRAZOLE 40 MG (PROTONIX) VIAL IV SCH (09:15)
[2022-05-18] MEDS: FLUCONAZOLE 100 MG/50 ML 50 ML IV SCH (09:16)
[2022-05-18 11:32] VITALS: BP 165/79
[2022-05-18 15:43] VITALS: BP 146/82
[2022-05-18] MEDS: ONDANSETRON 4 MG/2 ML (SDV) Z0FRAN IV PRN ×2 (17:45→21:45)
[2022-05-18 19:40] VITALS: BP 156/85
[2022-05-18] MEDS ORDERED: DOCUSATE SODIUM 100 MG (COLACE) CAP PO SCH (21:00)
[2022-05-19 00:08] VITALS: BP 147/98
[2022-05-19] MEDS: PIPERACILLIN SODIUM/TAZOBACTAM 4.5 GM in NS (IVPB) 100 ML IV SCH ×3 (00:23→17:09)
[2022-05-19 03:45] VITALS: BP 149/69
[2022-05-19 05:16] LABS: BASOPHILS # (AUTO) 0.1 10^3/uL (0.0-0.1); BASOPHILS % (AUTO) 1 % (0-10); EOSINOPHILS # (AUTO) 0.4 10^3/uL (0.0-0.3); EOSINOPHILS % (AUTO) 3 % (0-10); HEMATOCRIT 32 % (35-52); HEMOGLOBIN 10.4 g/dL (11.5-16.0); LYMPHOCYTES # (AUTO) 1.2 10^3/uL (1.0-4.0); LYMPHOCYTES % (AUTO) 10 % (12-44); MEAN CORPUSCULAR HEMOGLOBIN 31 pg (25-34); MEAN CORPUSCULAR HGB CONC 33 g/dL (32-36); MEAN CORPUSCULAR VOLUME 93 fL (80-99); MEAN PLATELET VOLUME 8.4 fL (9.0-12.2); MONOCYTES # (AUTO) 1.2 10^3/uL (0.0-1.0); MONOCYTES % (AUTO) 9 % (0-12); NEUTROPHILS # (AUTO) 9.2 10^3/uL (1.8-7.8); NEUTROPHILS % (AUTO) 74 % (42-75); PLATELET COUNT 298 10^3/uL (130-400); WHITE BLOOD COUNT 12.4 10^3/uL (4.3-11.0)
[2022-05-19] MEDS: HYDROcodone/APAP 7.5 MG/325 MG (LORTAB, LORCET PLUS) TABLET PO PRN (05:20)
[2022-05-19 05:34] LABS: POTASSIUM 3.9 MMOL/L (3.6-5.0)
[2022-05-19 05:35] LABS: CALCIUM 7.9 MG/DL (8.5-10.1)
[2022-05-19 05:39] LABS: CREATININE SERUM 0.52 MG/DL (0.60-1.30)
[2022-05-19] MEDS: NS IV 1000 ML 1,000 ML IV SCH (05:39)
[2022-05-19] MEDS: POTASSIUM CL 10MEQ/50ML IVPB 50 ML IV SCH (05:39)
[2022-05-19] MEDS: KCL 20 MEQ TAB (K-DUR) PO SCH (05:40)
[2022-05-19 05:41] LABS: MAGNESIUM 1.8 MG/DL (1.6-2.4)
[2022-05-19] MEDS: MAGNESIUM 1 GM/100 ML IVPB 100 ML IV SCH (05:53)
[2022-05-19 08:00] VITALS: BP 131/81
--- NOTE | 2022-05-19 08:01 | Progress Note - Surgery ---
CARROLL CORTEZ 05/19/22 0801: Subjective Date Seen by a Provider: May 19, 2022 Time Seen by a Provider: 06:52 Subjective/Events-last exam Patient is feeling better today. She said her abdominal pain is a max 6/10 today and much better than it has been. She ambulated several times yesterday both in the halls and to use the restroom after sultana removal. She is using her IS frequently. She did not eat supper last night but she said that was due to "psyching herself out" because they served her food right after she got her sultana removed. She said she would eat breakfast today. Review of Systems Pulmonary: No Dyspnea; Cough (only after using IS) Cardiovascular: Lt Headedness (intermittently upon standing, none while laying down/sitting); No: Chest Pain Gastrointestinal: Abdominal Pain; No: Nausea, Vomiting Genitourinary: No Dysuria, No Hematuria Objective Exam Vital Signs Date Time Temp Pulse Resp B/P (MAP) Pulse Ox O2 Delivery O2 Flow Rate FiO2 05/19/22 07:00 80 05/19/22 03:45 36.5 88 16 149/69 (95) 95 Room Air 05/19/22 01:00 90 05/19/22 00:08 36.0 90 18 147/98 (114) 98 Room Air 05/18/22 19:40 36.2 91 16 156/85 (108) 94 Room Air 05/18/22 19:00 96 05/18/22 15:43 36.5 98 18 146/82 (103) 96 Room Air 05/18/22 15:15 18 05/18/22 12:20 97 05/18/22 11:32 36.0 112 18 165/79 (107) 95 Room Air 05/18/22 10:31 95 Room Air 05/18/22 09:15 Room Air I & O 05/19/22 07:00 Intake Total 1860 ml Output Total 4600 ml Balance -2740 ml Capillary Refill : Less Than 3 Seconds General Appearance: No Apparent Distress, Obese HEENT: PERRL/EOMI, Moist Mucous Membranes Neck: Non Tender, Supple Respiratory: Lungs Clear, Normal Breath Sounds, No Accessory Muscle Use, No Respiratory Distress Cardiovascular: Regular Rate, Rhythm, No Murmur Peripheral Pulses: 2+ Dorsalis Pedis (R), 2+ Left Dors-Pedis (L), 2+ Radial Pulses (R), 2+ Radial Pulses (L) Gastrointestinal: soft, tenderness (RLQ, RUQ), other (HERIBERTO drain with minimal SS drainage, midline incision c/d/i, ostomy pink and functioning) Extremity: Non Tender, No Calf Tenderness Neurologic/Psychiatric: Alert, Oriented x3 Skin: Normal Color, Warm/Dry Lymphatic: No Adenopathy (cervical) Results Lab Laboratory Tests 05/19/22 05:00: White Blood Count 12.4H, Red Blood Count 3.38L, Hemoglobin 10.4L, Hematocrit 32L , Mean Corpuscular Volume 93, Mean Corpuscular Hemoglobin 31, Mean Corpuscular Hemoglobin Concent 33, Red Cell Distribution Width 13.7, Platelet Count 298, Mean Platelet Volume 8.4L, Immature Granulocyte % (Auto) 4, Neutrophils (%) (Auto) 74, Lymphocytes (%) (Auto) 10L, Monocytes (%) (Auto) 9, Eosinophils (%) (Auto) 3, Basophils (%) (Auto) 1, Neutrophils # (Auto) 9.2H, Lymphocytes # (Auto) 1.2, Monocytes # (Auto) 1.2H, Eosinophils # (Auto) 0.4H, Basophils # (Auto) 0.1, Immature Granulocyte # (Auto) 0.4H, Sodium Level 141, Potassium Level 3.9, Chloride Level 103, Carbon Dioxide Level 24, Anion Gap 14, Blood Urea Nitrogen 4L, Creatinine 0.52L, Estimat Glomerular Filtration Rate 106, BUN/Creatinine Ratio 8, Glucose Level 104, Calcium Level 7.9L, Magnesium Level 1.8 Microbiology 05/14/22 MRSA Screen - Final, Complete MRSA not isolated 05/11/22 Blood Culture - Final, Complete No growth Assessment/Plan Assessment/Plan Assessment/Plan Hypokalemia - within normal limits today Anemia Leukocytosis- improving S/P low anterior sigmoid colon resection with end colostomy Abdominal pain Continue IV zosyn. IV ativan for anxiety. Lortab for pain control and IV dilauded for breakthrough. Encourage patient to ambulate as much as possible today, continue using IS. Advance diet as tolerated Anemia is stable since admission, monitor with AM labs. GABRIEL MOISE DO 05/19/22 4907: Subjective Time Seen by a Provider: 11:53 Subjective/Events-last exam Pt seen and examined, doing much better today. Eating, pain controlled and ambulating. Review of Systems Pulmonary: No Dyspnea; Cough (only after using IS) Cardiovascular: No: Chest Pain Gastrointestinal: Abdominal Pain; No: Nausea, Vomiting Genitourinary: No Dysuria Objective Exam General Appearance: No Apparent Distress, Obese HEENT: PERRL/EOMI, Moist Mucous Membranes Respiratory: Lungs Clear, Normal Breath Sounds, No Accessory Muscle Use, No Respiratory Distress Cardiovascular: Regular Rate, Rhythm, No Murmur Gastrointestinal: soft, tenderness (RLQ, RUQ), other (HERIBERTO drain with minimal SS drainage, midline incision c/d/i, ostomy pink and functioning) Assessment/Plan Assessment/Plan Assessment/Plan Hypokalemia - within normal limits today Anemia Leukocytosis- improving S/P low anterior sigmoid colon resection with end colostomy Abdominal pain Stop IV zosyn and change to oral Augmentin. Will send home with Vicodin for pain control. Encourage patient to ambulate as much as possible today, continue using IS. Set up H/H with wound care for colostomy care and training Supervisory-Addendum Brief Verification & Attestation Participated in pt care: history, MDM, physical Personally performed: exam, history, MDM, supervision of care Care discussed with: Medical Student Procedures: n/a Verification and Attestation of Medical Student E/M Service A medical student performed and documented this service. I then reviewed and verified all information documented by the medical student and made modifications to such information, when appropriate. I personally performed a ph ysical exam, medical decision making and then discussed any differences between the notes and made revisions as necessary to create one note. Gabriel Moise , 05/19/22 , 16:47 CARROLL CORTEZ May 19, 2022 08:01 GABRIEL MOISE DO May 19, 2022 16:47
[2022-05-19] MEDS: FLUCONAZOLE 100 MG/50 ML 50 ML IV SCH (09:18)
[2022-05-19] MEDS: LORATADINE (CLARITIN) 10 MG TAB PO SCH (09:19)
[2022-05-19] MEDS: meTOproloL SUCCINATE 50 MG (TOPROL XL) TAB PO SCH (09:19)
[2022-05-19] MEDS: ESTRADIOL 1 MG TAB (ESTRACE) PO SCH (09:19)
--- NOTE | 2022-05-19 09:30 | Physical Therapy Evaluation ---
PT Evaluation-General Medical Diagnosis Admission Date May 11, 2022 at 11:24 Medical Diagnosis: bowel perforation Onset Date: May 11, 2022 Therapy Diagnosis Therapy Diagnosis: debility/weakness Height/Weight Height (Feet): 5 Height (Inches): 0.00 Weight (Pounds): 180 Weight (Ounces): 0.0 Precautions Precautions/Isolations: Fall Prevention, Standard Precautions Referral Physician: John Reason for Referral: Evaluation/Treatment Medical History Pertinent Medical History: HTN History of Falls (past yr): No Prior Surgery (last 100 days): No Current History ED secondary to RLQ pain Reviewed History: Yes Social History Home: Single Level Current Living Status: Spouse Prior Prior Level of Function SCALE: Activities may be completed with or without assistive devices. 1-Enrodetvuy-mmsggsi completes the activity by him/herself with no assistance from a helper. 5-Set-up or Clean-up Assistance-helper sets up or cleans up; patient completes activity. Howard assists only prior to or following the activity. 4-Supervision or Touching Assistance-helper provides verbal cues and/or touching/steadying and/or contact guard assistance as patient completes activity. Assistance may be provided throughout the activity or intermittently. 3-Partial/Moderate Assistance-helper does LESS THAN HALF the effort. Howard lifts, holds or supports trunk or limbs, but provides less than half the effort. 2-Substantial/Maximal Assistance-helper does MORE THAN HALF the effort. Howard lifts or holds trunk or limbs and provides more than half the effort. 2-Fblaaqoav-vyazhs does ALL the effort. Patient does none of the effort to complete the activity. Or, the assistance of 2 or more helpers is required for the patient to complete the activity. If activity was not attempted, code reason: 7-Patient Refused. 9-Not Applicable-not attempted and the patient did not perform the activity before the current illness, exacerbation or injury. 10-Not Attempted due to Environmental Limitations-(lack of equipment, weather restraints, etc.). 88-Not Attempted due to Medical Conditions or Safety Concerns. Bed Mobility: 6 Transfers (B,C,W/C): 6 Gait: 6 Stairs: 6 Indoor Mobility (Ambulation): Independent Stairs: Independent Prior Devices Use: None PT Evaluation-Current Subjective Patient agrees to PT. Pain Numeric Pain Scale: 5-Moderate Pain Location: Medial, Lower Location Body Site: Abdomen Pain Description: Pressure, Acute Objective Patient Orientation: Normal For Age Attachments: Colostomy/Ileostomy, Drains, IV ROM/Strength ROM Lower Extremities bilateral LE WFL Strength Lower Extremities 4-/5 grossly bilateral LE all planes Integumentary/Posture Integumentary refer to nursing notes Bowel Incontinence: No Bladder Incontinence: No Posture WFL Neuromuscular (Tone, Coordination, Reflexes) grossly intact Sensory Vision: Functional Hearing: Functional Sensation Right Lower Extremit: Intact Sensation Left Lower Extremity: Intact Transfers Lying to Sitting/Side of Bed(Q: 6 Sit to Stand (QC): 5 Chair/Nfe-qe-Mmkqj Xfer(QC): 5 Gait Does the Patient Walk?: Yes Mode of Locomotion: Walk Anticipated Mode of Locomotion: Walk Walk 10 feet (QC): 5 Walk 50 ft with 2 Turns(QC): 5 Walk 150 ft (QC): 5 Distance: 400' Gait Assistive Device: FWW Comments/Gait Description very slow, methodical gait sequence/safe and functional with no deviation Balance Sitting Static: Normal Sitting Dynamic: Normal Standing Static: Normal Standing Dynamic: Normal Assessment/Needs Patient will be seen x 2 sessions to ensure safe and functional mobility continues, then patient to be up independently with or without nursing/family. Patient agrees. Rehab Potential: Fair PT Short Term Goals Short Term Goals Time Frame: May 20, 2022 Roll Left & Right: 6 Sit to lyin Lying to sitting on side of be: 6 Sit to stand: 6 Chair/uhn-bo-ufoqg transfer: 6 Toilet transfer: 6 Walk 10 feet: 6 Walk 50 feet with two turns: 6 Walk 150 feet: 6 PT Plan Problem List Problem List: Activity Tolerance Treatment/Plan Treatment Plan: Continue Plan of Care Treatment Plan: Education, Functional Activity Rosa, Functional Strength, Gait, Safety, Therapeutic Exercise Treatment Duration: May 20, 2022 Frequency: 2 times per week Estimated Hrs Per Day: .25 hour per day Patient and/or Family Agrees t: Yes Time/GCodes Time In: 800 Time Out: 831 Total Billed Treatment Time: 31 Total Billed Treatment 1 visit EVModC 13 min FA 18 min TALIA BROWNE PT May 19, 2022 09:30
--- NOTE | 2022-05-19 11:41 | Progress Note - Hospitalist ---
Subjective HPI/CC On Admission Date Seen by Provider: May 19, 2022 Patient is a 62-year-old female with past medical history of hypertension, pulmonary embolism who presented to the emergency department due to abdominal pain. She reports right lower quadrant pain that started yesterday. She also had nausea and vomiting that started around 430 this morning. In the emergency room she was found to have free air likely from a perforated diverticula. She was admitted to surgery for further management. I have been consulted for medical management. She reports a history of hypertension and has not taken her medications today. She reports that her pain is a 5 out of 10. Subjective/Events-last exam Pt reports feeling better today. Ate breakfast and did well. Has been up walking. States HERIBERTO drain is leaking some but RN has taken care of it. Objective Exam Vital Signs Vital Signs Date Time Temp Pulse Resp B/P (MAP) Pulse Ox O2 Delivery O2 Flow Rate FiO2 05/19/22 09:45 Room Air 05/19/22 08:00 36.7 84 19 131/81 (98) 95 05/17/22 09:11 0.00 Capillary Refill : Less Than 3 Seconds General Appearance: No Apparent Distress Respiratory: Lungs Clear, No Respiratory Distress Cardiovascular: Regular Rate, Rhythm, No Murmur Neurologic/Psychiatric: Alert, Oriented x3 Results/Procedures Lab Laboratory Tests 05/19/22 05:00 Patient resulted labs reviewed. Imaging: Reviewed Imaging Report Assessment/Plan Assessment and Plan Assess & Plan/Chief Complaint Severe sepsis due to perforated diverticulitis Intraabdominal abscess Surgery primary s/p colectomy and colostomy 05/14 Zosyn and Diflucan Advancing diet Ambulation Pain regimen HTN Metoprolol resumed, trend Hydralazine as needed Obesity Clinically significant, no acute management needs DVT ppx: Lovenox I will round prn, please call if needed. Diagnosis/Problems Diagnosis/Problems (1) Severe sepsis Status: Acute (2) Diverticula of colon (3) Perforated viscus Status: Acute (4) Intra-abdominal abscess Status: Acute (5) HTN (hypertension) (6) Hx of pulmonary embolus CHERELLE REYEZ MD May 19, 2022 11:41
[2022-05-19 12:55] VITALS: BP 144/82
[2022-05-19] MEDS ORDERED: ACHYD1T PO (16:41)
[2022-05-19] MEDS ORDERED: AMOX1TAB11 PO (16:41)
--- NOTE | 2022-05-19 16:42 | Discharge Inst-Surgical ---
Discharge Inst-Surgical Depart Medication/Instructions New, Converted or Re-Newed RX: Transmitted to Pharmacy Patient Instructions Follow up Appt: Make appointment for [address] Slyvester Instructions: No lifting greater than 20 pounds. No strenuous activity. May shower in 24 hours, no tub bath or soaking. Use incentive spirometer at home as directed. No Smoking Skin/Wound Care: May remove bandages in am. You need to leave the abimbola in place and come in to clinic to have them removed Symptoms to Report: Appetite Changes, Extremity Discoloration, Numbness/Tingling, Swelling Increased, Bleeding Excessive, Eyesight Changes, Pain Increased, Urine Color Change, Constipation(Persistent), Fever over 101 degree F, Pain/Pressure in chest, Urinating Difficulty, Cough Up/Vomit Blood, Heart Beat Irreg/Pounding, Pain/Pressure in jaw, Cramps in feet or legs, Lightheadedness, Pain/Pressure in shoulder, Diarrhea(Persistent), Memory Changes Suddenly, Questions/Concerns, Weight gain consecutive days, Dizziness/Fainting, Nausea/Vomiting, Shortness of Breath, Weight gain over 2 pounds If questions or concerns contact your physician Or seek help at emergency department. Activity Activity as Tolerated: Yes Activity Instructions: Avoid Stress to Incision Diet Discharge Diet: No Restrictions Diet After 24 Hours: Clear Liquid if Nauseous If Any Problems/Questions/Issu: Contact Your Physician, Go to Emergency Room Skin/Wound Care Infection Signs and Symptoms: Increased Redness, Foul Odor of Wound, Increased Drainage, Skin Itchy or Has a Rash, Increased Swelling, Temperature Above 101 F Wound Care Comment: ostomy teaching Stitches/Abimbola/Dermabond Dis: Care of MARK Hernández DO May 19, 2022 16:42
--- NOTE | 2022-05-19 16:44 | D/C HH Face to Face Order ---
D/C Face to Face Orders Instructions for Patient Via [facility], Patient Instructions/FollowUp: monitor incision, colostomy care Physician to follow Patient: Dr. Sylvester Discharge Diet for Home: No Restrictions Patient Data-Allergies,Ht & Wt Patient Allergies: Coded Allergies: codeine (Verified Allergy, Unknown, CHEST TIGHTNESS, 04/12/18) erythromycin base (Verified Allergy, Unknown, STOMACH CRAMPS, 04/12/18) meperidine (Verified Allergy, Unknown, ANAPHYLAXIS, 04/12/18) Height (Feet): 5 Height (Inches): 0.00 Weight (Pounds): 180 Weight (Ounces): 0.0 Home Health Need/Face to Face Date of Face to Face: May 19, 2022 Clinical Findings: Generalized weakness and fatigue, Other-list in note I have seen Pt [id number]: Yes Discharged To: Home Diagnosis/Conditions: Perforated diverticulitis, pt has colostomy and needs help Patient is Homebound due to: Muscle weakness Colostomy Homebound Status Due to the above stated illness, injury or surgical procedure (medical condition or diagnosis) and associated clinical findings, the patient is homebound because of his/her inability to leave home except with aid of a supportive device and/or person AND leaving the home requires a considerable and taxing effort or is medically contraindicated. Pt req the following assistanc: Aid of another person Home Health Nursing Orders Home Health Services Order: Wound Care-Eval/Treat Home Health Infusion Therapy Line Start Date: May 14, 2022 Certify Stmt I certify that this patient is under my care and that I, a nurse practitioner or a physician; a bookkeeping assistant working with me, had a face to face encounter that -rocky yoselin the physician face to face encounter requirements with this patient as dated. MARK MOISE DO May 19, 2022 16:44
[2022-05-19 17:00] VITALS: BP 144/82
== END 2022-05-19 17:00 | disposition home health service, planned readmission (86) | DRG 853 ==
LOC: EDUNIT# 08:40 → ER 08:45 → 4TH 11:24 → ICU 05-14 18:18 → 4TH 05-15 17:50
PROVIDERS: ADMIT Surgery; ATTEND Surgery
PROC: 0DBN0ZZ Excision of Sigmoid Colon, Open Approach (ICD-10-PCS; 2022-05-14)
PROC: 0D1M0Z4 Bypass Descending Colon to Cutaneous, Open Approach (ICD-10-PCS; 2022-05-14)
PROC: 0WQF0ZZ Repair Abdominal Wall, Open Approach (ICD-10-PCS; 2022-05-14)
PROC: 0DBP0ZZ Excision of Rectum, Open Approach (ICD-10-PCS; principal; 2022-05-14 17:43)
DX: A41.9 Sepsis, unspecified organism (principal); K65.1 Peritoneal abscess; K57.20 Diverticulitis of large intestine with perforation and abscess without bleeding; Z68.41 Body mass index [BMI] 40.0-44.9, adult; E87.2 Acidosis; R65.20 Severe sepsis without septic shock; K43.2 Incisional hernia without obstruction or gangrene; D64.9 Anemia, unspecified; E66.9 Obesity, unspecified; R73.9 Hyperglycemia, unspecified; I10 Essential (primary) hypertension; F41.9 Anxiety disorder, unspecified; F32.A Depression, unspecified; E87.6 Hypokalemia; H54.7 Unspecified visual loss; Z86.711 Personal history of pulmonary embolism; Z88.5 Allergy status to narcotic agent; Z88.1 Allergy status to other antibiotic agents
CPT/HCPCS: 36415; 71045; 74177; 74178; 80048; 80053; 81000; 82805; 83036; 83605; 83690; 83735; 84100; 85007; 85025; 85027; 85610; 85730; 86141; 87040; 87081; 93005; 94640; 94664; 94760

== ENCOUNTER 2022-06-09 05:15 | Observation (INO) | payer OTHER ==
[2022-06-09] VITALS (7 sets, daily range): BP systolic 90–114; BP diastolic 49–74
[~2022-06-09] VITALS: Ht 152 cm; Wt 79.4 kg
[~2022-06-09 05:15] MED LIST changes: +ACET-2267 PO; +ACHYD1T PO; +AMOX1TAB11 PO; +ASPI1TAB23 PO; +LOPE-175 PO; +LORA10TA76 PO
[2022-06-09 05:40] LABS: BASOPHILS # (AUTO) 0.1 10^3/uL (0.0-0.1); BASOPHILS % (AUTO) 0 % (0-10); EOSINOPHILS # (AUTO) 0.1 10^3/uL (0.0-0.3); EOSINOPHILS % (AUTO) 0 % (0-10); HEMATOCRIT 36 % (35-52); HEMOGLOBIN 12.4 g/dL (11.5-16.0); LYMPHOCYTES # (AUTO) 1.3 10^3/uL (1.0-4.0); LYMPHOCYTES % (AUTO) 7 % (12-44); MEAN CORPUSCULAR HEMOGLOBIN 30 pg (25-34); MEAN CORPUSCULAR HGB CONC 34 g/dL (32-36); MEAN CORPUSCULAR VOLUME 89 fL (80-99); MEAN PLATELET VOLUME 9.5 fL (9.0-12.2); MONOCYTES % (AUTO) 11 % (0-12); NEUTROPHILS # (AUTO) 13.9 10^3/uL (1.8-7.8); NEUTROPHILS % (AUTO) 80 % (42-75); PLATELET COUNT 263 10^3/uL (130-400); WHITE BLOOD COUNT 17.4 10^3/uL (4.3-11.0)
[2022-06-09] MEDS ORDERED: LACTATED RINGERS 1,000 ML IV ONE (05:45)
[2022-06-09 05:51] LABS: ALBUMIN 3.7 GM/DL (3.2-4.5)
[2022-06-09 05:52] LABS: POTASSIUM 2.9 MMOL/L (3.6-5.0)
[2022-06-09 05:53] LABS: CALCIUM 9.2 MG/DL (8.5-10.1)
[2022-06-09 05:54] LABS: TOTAL PROTEIN 7.1 GM/DL (6.4-8.2)
[2022-06-09 05:56] LABS: BILIRUBIN,TOTAL 0.7 MG/DL (0.1-1.0)
[2022-06-09 05:58] LABS: CREATININE SERUM 0.79 MG/DL (0.60-1.30)
--- NOTE | 2022-06-09 06:02 | ED General ---
General Chief Complaint: Fever-Adult/Adol Stated Complaint: FEVER 101.7,STANLEY,CHILLS,NO ENERGY,DIZZY Source of Information: Patient, Old Records Exam Limitations: No Limitations (RONALDO RODRIGUEZ MD) History of Present Illness Date Seen by Provider: Jun 09, 2022 Time Seen by Provider: 05:25 Initial Comments This 62-year-old woman presents to the emergency room with complaints of acute onset of fever, chills, dizziness, and malaise since yesterday. She is known to this provider from a prior ER visit when she was diagnosed with bowel perforation about a month ago. She underwent initial conservative therapy but eventually required surgery with colorectal resection and colostomy. Dr. Sylvester is her surgeon. (RONALDO RODRIGUEZ MD) Allergies and Home Medications Allergies Coded Allergies: codeine (Verified Allergy, Unknown, CHEST TIGHTNESS, 04/12/18) erythromycin base (Verified Allergy, Unknown, STOMACH CRAMPS, 04/12/18) meperidine (Verified Allergy, Unknown, ANAPHYLAXIS, 04/12/18) Patient Home Medication List Home Medication List Reviewed: Yes (RONALDO RODRIGUEZ MD) Amoxicillin/Potassium Clav (Amox Tr-K Clv 500-125 mg Tab) 500 Mg-125 Mg Tablet, 1 EACH PO Q8H Prescribed by: MARK MOISE on 05/19/22 1641 Citalopram Hydrobromide (Citalopram HBr) 40 Mg Tablet, 40 MG PO DAILY, (Reported) Entered as Reported by: GT SALAZAR on 04/12/18 1356 Estradiol (Estradiol Tablet) 1 Mg Tablet, 0.5 MG PO DAILY, (Reported) Entered as Reported by: GT SALAZAR on 04/12/18 1356 Hydrocodone Bit/Acetaminophen (HYDROcodone/APAP 10/325 TABLET) 1 Ea Tab, 1 TAB PO Q6H Prescribed by: MARK MOISE on 05/19/22 1641 Loperamide HCl (Imodium A-D) 2 Mg Capsule, 2 MG PO DAILY, (Reported) Entered as Reported by: MICHELE HAMPTON on 05/12/22 1235 Loratadine (Claritin) 10 Mg Tablet, 10 MG PO DAILY, (Reported) Entered as Reported by: MICHELE HAMPTON on 05/12/22 1235 Metoprolol Succinate (Metoprolol Succinate) 50 Mg Tab.er.24h, 50 MG PO DAILY, (Reported) Entered as Reported by: GT SALAZAR on 04/12/18 1356 Triamterene/Hydrochlorothiazid (Triamterene-Hctz 37.5-25 mg Cp) 1 Each Capsule, 1 EACH PO DAILY, (Reported) Entered as Reported by: GT SALAZAR on 04/12/18 1356 Review of Systems Review of Systems Constitutional: see HPI EENTM: no symptoms reported Respiratory: no symptoms reported Cardiovascular: no symptoms reported Gastrointestinal: see HPI Genitourinary: no symptoms reported : No Musculoskeletal: no symptoms reported Skin: other (Minor drainage from surgical wound in the suprapubic region) Psychiatric/Neurological: No Symptoms Reported Hematologic/Lymphatic: No Symptoms Reported Immunological/Allergic: no symptoms reported (RONALDO RODRIGUEZ MD) Past Hdshehj-Dlstmc-Yfedad Hx Patient Social History Tobacco Use?: No Use of E-Cig and/or Vaping dev: No Substance use?: No Alcohol Use?: No (RONALDO RODRIGUEZ MD) Immunizations Up To Date Influenza Vaccine Up-to-Date: No; Not Current First/Initial COVID19 Vaccinat: 2020 Second COVID19 Vaccination Tang: 2020 (RONALDO RODRIGUEZ MD) Seasonal Allergies Seasonal Allergies: Yes (RONALDO RODRIGUEZ MD) Past Medical History Surgery/Hospitalization HX: APPENDECTOMY, HYSTERECTOMY, GALLBLADDER, LT KNEE SCOPE, HYPERTENSION, ANXIETY, DEPRESSION, DIVERTICULITIS, KIDNEY STONES Surgeries: Yes Abdominal (Colorectal resection with colostomy), Adenoidectomy, Appendectomy, Section, Gallbladder, Hysterectomy, Tonsillectomy Respiratory: Yes Pulmonary Embolism Cardiac: Yes Hypertension Neurological: No Reproductive Disorders: No Genitourinary: Yes Kidney Stones Gastrointestinal: Yes Diverticulosis, Irritable Bowel Musculoskeletal: No Endocrine: No HEENT: No Cancer: Yes Skin Psychosocial: Yes Anxiety, Depression Integumentary: No (RONALDO RODRIGUEZ MD) Family Medical History No Pertinent Family Hx (RONALDO RODRIGUEZ MD) Physical Exam-Suspected Sepsis Physical Exam Vital Signs Vital Signs - First Documented 06/09/22 05:25 Temp 37.0 Pulse 95 Resp 20 B/P (MAP) 118/63 (81) Pulse Ox 94 O2 Delivery Room Air (HARRISON BOLDEN MD) Vital Signs Capillary Refill : (RONADLO RODRIGUEZ MD) Height, Weight, BMI Height: 5'0.00" Weight: 180lbs. 0.0oz. [id number]; 41.20 BMI Method: General Appearance: WD/WN, Anxious HEENT: PERRL/EOMI, Normal ENT Inspection Neck: Normal Inspection Respiratory: Lungs Clear, Normal Breath Sounds, No Accessory Muscle Use Cardiovascular: Regular Rate, Rhythm, No Edema, No Murmur Gastrointestinal: Normal Bowel Sounds, Soft, Other (Colostomy clean, dry, and intact. Scabbing over the ventral incision in the suprapubic region. No active draining at this time. No inflammatory changes noted.) Extremity: Normal Inspection, No Pedal Edema Neurologic/Psychiatric: Alert, Oriented x3, No Motor/Sensory Deficits, Normal Mood/Affect, wood cutter II-XII Norm as Tested Skin: normal color, warm/dry, other (See above) (RONALDO RODRIGUEZ MD) Focused Exam Lactate Level 06/09/22 05:30: Lactic Acid Level 2.22*H (HARRISON BOLDEN MD) Lactic Acid Level Laboratory Tests Test 06/09/22 05:30 Lactic Acid Level 2.22 MMOL/L (0.50-2.00) *H (HARRISON BOLDEN MD) Progress/Results/Core Measures Suspected Sepsis SIRS Temperature: Pulse: Respiratory Rate: Laboratory Tests 06/09/22 05:30: White Blood Count 17.4H Blood Pressure / Mean: 06/09/22 05:30: Lactic Acid Level 2.22*H Laboratory Tests 06/09/22 05:30: Creatinine 0.79, INR Comment 1.0, Platelet Count 263, Total Bilirubin 0.7 (RONALDO RODRIGUEZ MD) Results/Orders Lab Results Laboratory Tests Test 06/09/22 05:30 06/09/22 05:34 06/09/22 06:41 Range/Units White Blood Count 17.4 H 4.3-11.0 10^3/uL Red Blood Count 4.08 3.80-5.11 10^6/uL Hemoglobin 12.4 11.5-16.0 g/dL Hematocrit 36 35-52 % Mean Corpuscular Volume 89 80-99 fL Mean Corpuscular Hemoglobin 30 25-34 pg Mean Corpuscular Hemoglobin Concent 34 32-36 g/dL Red Cell Distribution Width 12.3 10.0-14.5 % Platelet Count 263 130-400 10^3/uL Mean Platelet Volume 9.5 9.0-12.2 fL Immature Granulocyte % (Auto) 1 % Neutrophils (%) (Auto) 80 H 42-75 % Lymphocytes (%) (Auto) 7 L 12-44 % Monocytes (%) (Auto) 11 0-12 % Eosinophils (%) (Auto) 0 0-10 % Basophils (%) (Auto) 0 0-10 % Neutrophils # (Auto) 13.9 H 1.8-7.8 10^3/uL Lymphocytes # (Auto) 1.3 1.0-4.0 10^3/uL Monocytes # (Auto) 2.0 H 0.0-1.0 10^3/uL Eosinophils # (Auto) 0.1 0.0-0.3 10^3/uL Basophils # (Auto) 0.1 0.0-0.1 10^3/uL Immature Granulocyte # (Auto) 0.1 0.0-0.1 10^3/uL Neutrophils % (Manual) 72 % Lymphocytes % (Manual) 9 % Monocytes % (Manual) 15 % Band Neutrophils 4 % Blood Morphology Comment NORMAL Prothrombin Time 14.0 12.2-14.7 SEC INR Comment 1.0 0.8-1.4 Activated Partial Thromboplast Time 33 24-35 SEC Sodium Level 134 L 135-145 MMOL/L Potassium Level 2.9 L 3.6-5.0 MMOL/L Chloride Level 95 L 98-107 MMOL/L Carbon Dioxide Level 25 21-32 MMOL/L Anion Gap 14 5-14 MMOL/L Blood Urea Nitrogen 9 7-18 MG/DL Creatinine 0.79 0.60-1.30 MG/DL Estimat Glomerular Filtration Rate 85 BUN/Creatinine Ratio 11 Glucose Level 166 H 70-105 MG/DL Lactic Acid Level 2.22 *H 0.50-2.00 MMOL/L Calcium Level 9.2 8.5-10.1 MG/DL Corrected Calcium 9.4 8.5-10.1 MG/DL Total Bilirubin 0.7 0.1-1.0 MG/DL Aspartate Amino Transf (AST/SGOT) 14 5-34 U/L Alanine Aminotransferase (ALT/SGPT) 15 0-55 U/L Alkaline Phosphatase 113 40-136 U/L C-Reactive Protein High Sensitivity 14.82 H 0.00-0.50 MG/DL Total Protein 7.1 6.4-8.2 GM/DL Albumin 3.7 3.2-4.5 GM/DL Procalcitonin 0.05 <0.10 NG/ML Influenza Type A (RT-PCR) Not Detected Not Detecte Influenza Type B (RT-PCR) Not Detected Not Detecte SARS-CoV-2 RNA (RT-PCR) Not Detected Not Detecte Urine Color YELLOW Urine Clarity CLEAR Urine pH 6.0 5-9 Urine Specific [place] <=1.005 1.016-1.022 Urine Protein NEGATIVE NEGATIVE Urine Glucose (UA) NEGATIVE NEGATIVE Urine Ketones NEGATIVE NEGATIVE Urine Nitrite NEGATIVE NEGATIVE Urine Bilirubin NEGATIVE NEGATIVE Urine Urobilinogen 0.2 < = 1.0 MG/DL Urine Leukocyte Esterase TRACE H NEGATIVE Urine RBC (Auto) TRACE-I H NEGATIVE Urine RBC 0-2 /HPF Urine WBC 2-5 /HPF Urine Squamous Epithelial Cells 5-10 /HPF Urine Crystals NONE /LPF Urine Bacteria TRACE /HPF Urine Casts NONE /LPF Urine Mucus NEGATIVE /LPF Urine Culture Indicated NO (HARRISON BOLDEN MD) Medications Given in ED Current Medications Medications Dose Ordered Sig/Shelbie Route Start Time Stop Time Status Last Admin Dose Admin Iohexol 100 ml ONCE ONCE IV 06/09/22 07:00 06/09/22 07:01 DC 06/09/22 07:01 80 ML Lactated Ringer's 1,000 ml @ 0 mls/hr Q0M ONCE IV 06/09/22 05:45 06/09/22 05:46 DC 06/09/22 06:01 0 MLS/HR Sodium Chloride 100 ml ONCE ONCE IV 06/09/22 07:00 06/09/22 07:01 DC 06/09/22 07:01 80 ML (HARRISON BOLDEN MD) Vital Signs/I&O 06/09/22 05:25 Temp 37.0 Pulse 95 Resp 20 B/P (MAP) 118/63 (81) Pulse Ox 94 O2 Delivery Room Air (HARRISON BOLDEN MD) Vital Signs/I&O Capillary Refill : (RONALDO RODRIGUEZ MD) Progress Note : Time: 06:34 Progress Note Patient was interviewed and examined. She did not require any symptomatic care. Septic work-up is being pursued. Influenza and COVID screens were negative. She does have leukocytosis and elevated CRP. Patient was found to have hypokalemia which will be replaced by IV route. Leukocytosis and elevated CRP would suggest bacterial infection. CT of the abdomen pelvis is warranted at this point given the area of tenderness and drainage in the suprapubic region. Care of this patient is being transitioned to Dr. Bolden at this time. (RONALDO RODRIGUEZ MD) Progress Note #1: Time: :34 Progress Note Assumed from Dr. Melgar at shift change . patient is a 62-year-old female status post colon resection with colostomy placement within the last month by Dr. SYLVESTER. Complains of onset of fever last night to 101.8. She has had ongoing abdominal discomfort since her surgery. She states she is very tender in her abdomen. Has noticed decreased output in the 24 hours preceding this visit from her ostomy. She is not really nauseous. Denies black or bloody stool. No burning with urination. Has had some ongoing low back pain since the surgery as well. No shortness of breath or cough. No URI symptoms/COVID concerns. Took some ibuprofen at around 430 this morning for the pain and it has not really helped. She has complained of some drainage from the lower portion of her incision within the last few days. She does have a dressing with some silver alginate over the incision. No drainage is appreciated at this time, no inflammatory changes to the skin. Physical exam is remarkable for very tender abdomen with hypoactive bowel sounds. Slightly distended. There is brown stool in the ostomy. Labs are reviewed and she has a fairly significant leukocytosis. CT abdomen and pelvis shows inflammatory changes with gas and fluid at the anterior abdominal wall. Case will be discussed with Dr. SYLVESTER. Progress Note #2: Time: 07:45 Progress Note discussed with Dr Sylvester. Will admit with IV abx. He will evaluate (HARRISON BOLDEN MD) Diagnostic Imaging Diagonstic Imaging: Xray Plain Films/CT/US/NM/MRI: chest Comments NAME: NURY SUAZO MED REC#: [id number] PT STATUS: REG ER : 1960 PHYSICIAN: RONALDO RODRIGUEZ MD ADMIT DATE: 06/09/22/ER Draft Date of Exam:06/09/22 CHEST 1 VIEW, AP/PA ONLY EXAM: CHEST 1 VIEW, AP/PA ONLY INDICATION: Fever. COMPARISON: Chest radiograph 05/13/2022. CT chest 04/05/2018. FINDINGS: Normal heart size and central pulmonary vascularity. Pulmonary nodule in the right lower lobe is similar to the 2018 CT. No pleural effusion or pneumothorax. No acute osseous findings. IMPRESSION: 1. No acute cardiopulmonary findings. 2. Lung nodule in the right lower lobe is likely stable compared to 04/05/2018 CT. Dictated on workstation # [id number] Dict: 06/09/2228 Trans: 06/09/22 0631 [facility] [id number] Interpreted by: MELVIN ANSARI MD Reviewed: Reviewed by Me (RONALDO RODRIGUEZ MD) Diagonstic Imaging: CT Comments [facility] [place] NAME: NURY SUAZO MED REC#: [id number] PT STATUS: REG ER : 1960 PHYSICIAN: RONALDO RODRIGUEZ MD ADMIT DATE: 06/09/22/ER Draft Date of Exam:06/09/22 CT ABDOMEN/PELVIS W PROCEDURE: CT abdomen and pelvis with contrast. TECHNIQUE: Multiple contiguous axial images were obtained through the abdomen and pelvis after administration of intravenous contrast. Auto Exposure Controls were utilized during the CT exam to meet ALARA standards for radiation dose reduction. All CT scans use one or more of the following dose optimizing techniques: automated exposure control, MA and/or KvP adjustment based on patient size and exam type or iterative reconstruction. INDICATION: Fever. Postoperative pain. Colostomy one month ago. Chills and weakness. Small open area in the abdominal incision. COMPARISON: CT abdomen and pelvis IV contrast 05/16/2022. FINDINGS: Since the prior exam, there is a large amount of new gas and a small amount of fluid within the midline anterior abdominal wall incision. There is also a loop of transverse colon and a loop of small bowel closely associated with the inflammatory change about this incision in the anterior abdominal wall. No evidence of bowel obstruction. No free intraperitoneal air is identified. No free fluid. Left colostomy. Solid pulmonary nodule in the right middle lobe measuring 1.3 cm is similar to the prior exam. Cholecystectomy. The liver, pancreas, spleen, adrenals, left kidney and collecting systems are unremarkable. Simple appearing cyst in the right kidney. No lymphadenopathy. Hysterectomy. No evidence of appendicitis. No acute osseous findings. IMPRESSION: 1. Large amount of gas and small amount of fluid in the midline anterior abdominal wall incision has progressed since the prior exam. 2. There are loops of both the transverse colon and small bowel closely associated with the inflammatory change about the incision without evidence of bowel obstruction. No free intraperitoneal air. 3. Solid pulmonary nodule in the right middle lobe measuring 1.3 cm similar to the prior exam. Dictated on workstation # [id number] Dict: 06/09/22705 Trans: 06/09/22 0717 [facility] [id number] Interpreted by: MELVIN ANSARI MD Electronically signed by: (HARRISON BOLDEN MD) Departure Communication (Admissions) Time/Spoke to Admitting Phy: 07:[address] Sylvester; Admit, Zosyn, Clear liquids and pain medications (HARRISON BOLDEN MD) Impression Primary Impression: Abdominal pain Qualified Codes: R10.84 - Generalized abdominal pain Additional Impression: Incisional abscess Disposition: ADMITTED INPATIENT Condition: Stable Admissions Decision to Admit Reason: Admit from ER (General) Decision to Admit/Date: Jun 09, 2022 Time/Decision to Admit Time: 07:45 (HARRISON BOLDEN MD) Departure-Patient Inst. Referrals: SATNAM ARAUJO MD (PCP/Family) Primary Care Physician RONALDO RODRIGUEZ MD Jun 09, 2022 06:02 HARRISON BOLDEN MD Jun 09, 2022 07:39
[2022-06-09 06:08] LABS: BAND NEUTROPHILS 4 %; LYMPHOCYTES % (MANUAL) 9 %; MONOCYTES % (MANUAL) 15 %; NEUTROPHILS % (MANUAL) 72 %; RBC MORPH NORMAL
--- NOTE | 2022-06-09 06:31 | Diagnostic Imaging Report ---
EXAM: CHEST 1 VIEW, AP/PA ONLY INDICATION: Fever. COMPARISON: Chest radiograph 05/13/2022. CT chest 04/05/2018. FINDINGS: Normal heart size and central pulmonary vascularity. Pulmonary nodule in the right lower lobe is similar to the 2018 CT. No pleural effusion or pneumothorax. No acute osseous findings. IMPRESSION: 1. No acute cardiopulmonary findings. 2. Lung nodule in the right lower lobe is likely stable compared to 04/05/2018 CT. Dictated by: Dictated on workstation # [id number]
[2022-06-09 06:49] LABS: BILIRUBIN,URINE NEGATIVE (NEGATIVE); CLARITY,URINE CLEAR; COLOR,URINE YELLOW; GLUCOSE, URINE (UA) NEGATIVE (NEGATIVE); KETONES,URINE NEGATIVE (NEGATIVE); LEUKOCYTE ESTERASE ,URINE TRACE (NEGATIVE); NITRITE,URINE NEGATIVE (NEGATIVE); PROTEIN,URINE NEGATIVE (NEGATIVE)
[2022-06-09] MEDS ORDERED: HOLD METFORMIN - RECEIVED CONTRAST 20 ML VIAL IV SCH (07:00)
[2022-06-09] MEDS ORDERED: IOHEXOL 350 MG/ML 100 ML (OMNIPAQUE 350) VIAL IV ONE (07:00)
[2022-06-09] MEDS ORDERED: NS 100 ML (IVPB) BAG IV ONE (07:00)
--- NOTE | 2022-06-09 07:18 | Diagnostic Imaging Report ---
PROCEDURE: CT abdomen and pelvis with contrast. TECHNIQUE: Multiple contiguous axial images were obtained through the abdomen and pelvis after administration of intravenous contrast. Auto Exposure Controls were utilized during the CT exam to meet ALARA standards for radiation dose reduction. All CT scans use one or more of the following dose optimizing techniques: automated exposure control, MA and/or KvP adjustment based on patient size and exam type or iterative reconstruction. INDICATION: Fever. Postoperative pain. Colostomy one month ago. Chills and weakness. Small open area in the abdominal incision. COMPARISON: CT abdomen and pelvis IV contrast 05/16/2022. FINDINGS: Since the prior exam, there is a large amount of new gas and a small amount of fluid within the midline anterior abdominal wall incision. There is also a loop of transverse colon and a loop of small bowel closely associated with the inflammatory change about this incision in the anterior abdominal wall. No evidence of bowel obstruction. No free intraperitoneal air is identified. No free fluid. Left colostomy. Solid pulmonary nodule in the right middle lobe measuring 1.3 cm is similar to the prior exam. Cholecystectomy. The liver, pancreas, spleen, adrenals, left kidney and collecting systems are unremarkable. Simple appearing cyst in the right kidney. No lymphadenopathy. Hysterectomy. No evidence of appendicitis. No acute osseous findings. IMPRESSION: 1. Large amount of gas and small amount of fluid in the midline anterior abdominal wall incision has progressed since the prior exam. 2. There are loops of both the transverse colon and small bowel closely associated with the inflammatory change about the incision without evidence of bowel obstruction. No free intraperitoneal air. 3. Solid pulmonary nodule in the right middle lobe measuring 1.3 cm similar to the prior exam. Dictated by: Dictated on workstation # [id number]
[2022-06-09 07:28] LABS: BACTERIA,URINE TRACE /HPF; RBC,URINE 0-2 /HPF
[2022-06-09] MEDS ORDERED: PIPERACILLIN SODIUM/TAZOBACTAM 4.5 GM in NS (IVPB) 100 ML IV ONE (08:00)
[2022-06-09] MEDS ORDERED: fentaNYL INJ 100 MCG/2 ML AMP IVP ONE (08:00)
[2022-06-09] MEDS ORDERED: HYDROcodone/APAP 7.5 MG/325 MG (LORTAB, LORCET PLUS) TABLET PO ONE (08:30)
[2022-06-09] MEDS: LACTATED RINGERS 1,000 ML IV SCH ×3 (08:33→23:26)
[2022-06-09] MEDS ORDERED: ONDANSETRON 4 MG/2 ML (SDV) Z0FRAN IV PRN (09:15)
[2022-06-09] MEDS: meTOprolol TARTRATE 50 MG (LOPRESSOR) TAB PO SCH (09:34)
[2022-06-09] MEDS: TRIAMTERENE/HCTZ 75-50 (MAXZIDE,DYAZIDE) TABLET PO SCH (09:34)
[2022-06-09] MEDS ORDERED: polyethylene glycoL POWDER 17 GM (MIRALAX) PACK PO ONE (11:15)
[2022-06-09] MEDS ORDERED: ESTR1TAB24 PO (11:48)
[2022-06-09] MEDS ORDERED: LORA-404 PO (11:51)
[2022-06-09] MEDS ORDERED: IBUP-2473 PO (11:51)
[2022-06-09] MEDS ORDERED: ACYC400T21 PO (11:51)
[2022-06-09] MEDS ORDERED: POLY17PO6 PO (11:51)
[2022-06-09] MEDS: HYDROcodone/APAP 7.5 MG/325 MG (LORTAB, LORCET PLUS) TABLET PO PRN ×3 (12:21→22:15)
[2022-06-09] MEDS: PIPERACILLIN SODIUM/TAZOBACTAM 4.5 GM in NS (IVPB) 100 ML IV SCH ×2 (16:18→23:26)
[2022-06-09] MEDS ORDERED: ACETAMINOPHEN 325 MG TABLET PO PRN (17:30)
[2022-06-09] MEDS ORDERED: ACHYD1T PO (17:43)
[2022-06-09] MEDS ORDERED: AMOX-355 PO (17:43)
--- NOTE | 2022-06-09 17:43 | Discharge Inst-Surgical ---
D/C Lap Instructions-RANJAN New, Converted, or Re-Newed RX: RX on Chart Follow Up PRN Activity as tolerated Regular Diet Symptoms to Report: Fever over 101 degree F, Nausea/Vomiting Infection Signs and Symptoms to report: Increased redness, Foul odor of wound, Increased drainage Bathing instructions: May shower Operative Area Clean/Dry; Keep incision clean/dry If any problems/questions: Contact your physician or go to Emergency Room CRUZ WOODRUFF MD Jun 09, 2022 17:43
--- NOTE | 2022-06-09 18:13 | HISTORY AND PHYSICAL ---
DATE OF SERVICE: ATTENDING PRIMARY CARE PHYSICIAN: Dr. Marbella Lee. HISTORY OF PRESENT ILLNESS: The patient is a 62-year-old female, who presented to the Emergency Department early this morning with acute onset of fever, chills as well as some weakness. She was initially seen on 05/11/2022 for a contained sigmoid colonic bowel perforation and failed medical management and underwent an open low anterior colorectal resection, Bridget's pouch as well as an end colostomy on 05/15/2022. She did do well postoperatively; however, did develop an ileus, but eventually with time and ambulation, was able to have good colostomy output and was able to tolerate a diet and was discharged home. A CT scan was done on this admission, which did show some mild loops of small bowel as well as colon next to the previous midline incision. There was no abscess formation as well as no signs of obstruction. These may be postsurgical changes after surgery. There is a chance that there may have been some bacterial overgrowth within the colon or small bowel after previously taking antibiotics for a prolonged period of time. Since being admitted and again placed on antibiotics, she has felt better and has been able to tolerate liquids without any difficulty and has not had any fever nor chills. PAST MEDICAL HISTORY: Hypertension, history of nephrolithiasis, depression, and history of perforated sigmoid colon due to diverticulitis. PAST SURGICAL HISTORY: Appendectomy, total hysterectomy, open cholecystectomy, section, tonsillectomy, left knee arthroscopy, incisional hernia repair, exploratory laparotomy, low anterior colorectal resection, Bridget's pouch, and end colostomy and primary incisional hernia repair. ALLERGIES: CODEINE, ERYTHROMYCIN, and DEMEROL. MEDICATIONS: Augmentin p.r.n., citalopram 40 mg daily, estradiol 0.5 mg daily, hydrocodone p.r.n., loperamide 2 mg daily, loratadine 10 mg daily, metoprolol 50 mg daily, and triamterene/hydrochlorothiazide 37.5/25 mg daily. SOCIAL HISTORY: Negative smoke and negative alcohol. FAMILY HISTORY: Noncontributory. REVIEW OF SYSTEMS: This is a well-nourished female, currently in no acute distress. She is not experiencing any shortness of breath or difficulty breathing. No chest pain, palpitations or diaphoresis. No nausea or vomiting. She states that she did not have colostomy output for approximately 24 hours; however, since being admitted and started on MiraLax, she has had several large bowel movements. She does report having fevers at home. She does not report any recent inadvertent weight loss. PHYSICAL EXAMINATION: VITAL SIGNS: Temperature 36.8, blood pressure 100/66, pulse 81, respirations 18, and pulse ox 96% on room air. CHEST: Clear. Good breath sounds bilaterally. HEART: Regular and no murmurs. EXTREMITIES: No lower extremity edema and negative Homans sign. HEENT: No scleral icterus. NECK: No cervical lymphadenopathy. ABDOMEN: Soft and nondistended. The incision is healing well. There are no palpable hernias. There is mild discomfort upon deep palpation around the incision. No peritoneal signs. SKIN: Warm and dry. LABORATORY DATA: WBC 17.4, hemoglobin 12.4, hematocrit 36, and platelets 263. BUN 9, creatinine 0.79. Urinalysis trace leukocyte esterase, trace bacteria. ASSESSMENT AND PLAN: A 62-year-old female with constipation, fevers as well as mild enteritis of unknown etiology. We will proceed with conservative medical therapy including IV hydration, laxatives as well as IV antibiotics. We will also start a clear liquid diet. When she does have a significant bowel function, we will advance her diet as tolerated. We will also monitor her laboratory work. When she is tolerating a diet and has a normal colostomy output, does not have any fevers and her labs began to normalize, we will discharge her home. She is on the schedule for colostomy reversal on 08/14/2022. Job ID: [id number] DocumentID: [id number] Dictated Date: 06/09/2022 17:56:34 Airport Manager Date: 06/09/2022 18:12:52 Dictated By: CRUZ WOODRUFF MD
[2022-06-10] VITALS (8 sets, daily range): BP systolic 88–122; BP diastolic 48–62
[2022-06-10] MEDS: LACTATED RINGERS 1,000 ML IV SCH ×2 (04:54→15:32)
[2022-06-10 05:54] LABS: BASOPHILS % (AUTO) 0 % (0-10); EOSINOPHILS % (AUTO) 0 % (0-10); HEMATOCRIT 33 % (35-52); HEMOGLOBIN 10.7 g/dL (11.5-16.0); LYMPHOCYTES % (AUTO) 7 % (12-44); MEAN CORPUSCULAR HEMOGLOBIN 30 pg (25-34); MEAN CORPUSCULAR HGB CONC 33 g/dL (32-36); MEAN CORPUSCULAR VOLUME 92 fL (80-99); MEAN PLATELET VOLUME 10.2 fL (9.0-12.2); MONOCYTES # (AUTO) 1.7 10^3/uL (0.0-1.0); MONOCYTES % (AUTO) 13 % (0-12); NEUTROPHILS # (AUTO) 10.7 10^3/uL (1.8-7.8); NEUTROPHILS % (AUTO) 79 % (42-75); PLATELET COUNT 200 10^3/uL (130-400); WHITE BLOOD COUNT 13.6 10^3/uL (4.3-11.0)
[2022-06-10] MEDS ORDERED: KCL 20 MEQ TAB (K-DUR) PO NR (07:30)
[2022-06-10] MEDS: meTOprolol TARTRATE 50 MG (LOPRESSOR) TAB PO SCH (08:41)
[2022-06-10] MEDS: PIPERACILLIN SODIUM/TAZOBACTAM 4.5 GM in NS (IVPB) 100 ML IV SCH ×2 (08:41→15:32)
[2022-06-10] MEDS: HYDROcodone/APAP 7.5 MG/325 MG (LORTAB, LORCET PLUS) TABLET PO PRN ×3 (08:41→21:01)
[2022-06-10] MEDS: TRIAMTERENE/HCTZ 75-50 (MAXZIDE,DYAZIDE) TABLET PO SCH (08:42)
[2022-06-10] MEDS ORDERED: LIDOCAINE 1% INJ 20 ML VIAL INJ ONE (12:45)
--- NOTE | 2022-06-10 14:21 | Progress Note ---
Subjective Date Seen by a Provider: Jun 10, 2022 Time Seen by a Provider: 14:00 Subjective/Events-last exam doing ok. does have some fatigue. no fever/chills. CT looks consistent with abd wall incisional abscess. Focused Exam Lactate Level 06/09/22 05:30: Lactic Acid Level 2.22*H 06/09/22 08:32: Lactic Acid Level 1.01 Objective Exam Vital Signs Date Time Temp Pulse Resp B/P (MAP) Pulse Ox O2 Delivery O2 Flow Rate FiO2 06/10/22 11:37 36.8 94 18 92/55 (67) 91 Room Air 06/10/22 09:00 Room Air 06/10/22 07:46 36.9 103 18 122/55 (77) 93 Room Air 06/10/22 04:21 98 114/58 (76) 06/10/22 04:09 37.2 105 20 104/52 (69) 96 Room Air 06/10/22 04:03 36.6 106 20 88/48 (61) 91 Room Air 06/09/22 23:14 36.2 98 20 98/49 (65) 91 Room Air 06/09/22 22:12 107/62 (77) 06/09/22 21:40 Room Air 06/09/22 20:10 37.0 78 96/53 (67) 06/09/22 19:25 36.9 101 20 90/56 (67) 91 Room Air 06/09/22 15:52 36.8 81 18 100/66 (77) 96 Room Air I & O 06/10/22 07:00 Intake Total 4050 ml Output Total 2100 ml Balance 1950 ml Capillary Refill : Less Than 3 Seconds General Appearance: No Apparent Distress HEENT: PERRL/EOMI Neck: Full Range of Motion Respiratory: Chest Non Tender Cardiovascular: Regular Rate, Rhythm Gastrointestinal: soft, tenderness Extremity: Normal Capillary Refill Neurologic/Psychiatric: Alert, Oriented x3 Skin: Normal Color Lymphatic: No Adenopathy Results Lab Laboratory Tests 06/10/22 05:08: White Blood Count 13.6H, Red Blood Count 3.55L, Hemoglobin 10.7L, Hematocrit 33L , Mean Corpuscular Volume 92, Mean Corpuscular Hemoglobin 30, Mean Corpuscular Hemoglobin Concent 33, Red Cell Distribution Width 12.6, Platelet Count 200, Mean Platelet Volume 10.2, Immature Granulocyte % (Auto) 1, Neutrophils (%) (Auto) 79H, Lymphocytes (%) (Auto) 7L, Monocytes (%) (Auto) 13H, Eosinophils (%) (Auto) 0, Basophils (%) (Auto) 0, Neutrophils # (Auto) 10.7H, Lymphocytes # (Auto) 1.0, Monocytes # (Auto) 1.7H, Eosinophils # (Auto) 0.0, Basophils # (Auto) 0.0, Immature Granulocyte # (Auto) 0.1 Assessment/Plan Assessment/Plan Assess & Plan/Chief Complaint fever, weakness, abd pain s/p open LAR, hartmans and end colostomy with abd wall abscess. proceed with I&D of abscess. cont IV abx. CRUZ WOODRUFF MD Jun 10, 2022 14:21
[2022-06-10] MEDS ORDERED: HYDROmorphone 2 MG/ML VIAL (DILAUDID) ONE (14:57)
[2022-06-10] MEDS ORDERED: HYDROmorphone 2 MG/ML VIAL (DILAUDID) IV ONE (15:00)
--- NOTE | 2022-06-10 22:11 | OPERATIVE REPORT ---
DATE OF SERVICE: 06/10/2022 ATTENDING PRIMARY CARE PHYSICIAN: Marbella Lee MD PREOPERATIVE DIAGNOSIS: Abdominal wall abscess. POSTOPERATIVE DIAGNOSIS: Abdominal wall abscess. PROCEDURE: Incision and drainage of abdominal wall abscess. SURGEON: Cruz Woodruff MD. ANESTHESIA: Local. ESTIMATED BLOOD LOSS: Minimal. FINDINGS: Large abscess abdominal wall, fascia was intact. DISPOSITION: The patient tolerated the procedure well. INDICATIONS: The patient is a 62-year-old female, who presented to the Emergency Department with acute onset of fever, chills, weakness and abdominal pain. She was initially seen on 05/11/2022 for a contained sigmoid colonic bowel perforation and failed medical management and underwent an open low anterior colorectal resection, Bridget's pouch as well as an end colostomy on 05/15/2022. On this admission, a CT scan was performed, which did show some mild loops of dilated small bowel that appeared to gravitated towards the midline incision. There was also a few fluid accumulation and subcutaneous tissue as well as air, likely consistent with an abscess. DESCRIPTION OF PROCEDURE: The abdomen was prepped and draped in standard surgical fashion. A 1% lidocaine with epinephrine was used to anesthetize the overlying skin to the previous incision. A skin incision through the skin and subcutaneous tissue was made using a 10 blade. The abscess cavity was identified and completely broken up using blunt dissection. The purulence was sent for culture and sensitivity. The abscess cavity was then irrigated with sterile saline and then packed with wet-to-dry with Kerlix wrap followed by 4 x 4 gauze followed by ABD pad. The patient tolerated the procedure well. We will continue with IV antibiotics and also consult wound care for placements of a wound VAC. Job ID: [id number] DocumentID: [id number] Dictated Date: 06/10/2022 15:29:32 Composition Stone Applicator Date: 06/10/2022 22:11:16 Dictated By: CRUZ WOODRUFF MD
[2022-06-11] MEDS: HYDROcodone/APAP 7.5 MG/325 MG (LORTAB, LORCET PLUS) TABLET PO PRN ×3 (00:50→21:57)
[2022-06-11] MEDS: PIPERACILLIN SODIUM/TAZOBACTAM 4.5 GM in NS (IVPB) 100 ML IV SCH ×3 (00:51→15:01)
[2022-06-11] MEDS: HYDROmorphone 2 MG/ML VIAL (DILAUDID) IV PRN ×2 (02:15→14:17)
[2022-06-11 03:39] VITALS: BP 96/64
[2022-06-11 07:49] VITALS: BP 94/64
[2022-06-11] MEDS: LACTATED RINGERS 1,000 ML IV SCH ×3 (09:06→18:34)
[2022-06-11] MEDS: meTOprolol TARTRATE 50 MG (LOPRESSOR) TAB PO SCH (09:09)
[2022-06-11] MEDS: TRIAMTERENE/HCTZ 75-50 (MAXZIDE,DYAZIDE) TABLET PO SCH (09:09)
[2022-06-11 11:16] VITALS: BP 109/75
[2022-06-11 11:23] LABS: BASOPHILS % (AUTO) 0 % (0-10); EOSINOPHILS # (AUTO) 0.1 10^3/uL (0.0-0.3); EOSINOPHILS % (AUTO) 2 % (0-10); HEMATOCRIT 30 % (35-52); LYMPHOCYTES # (AUTO) 0.9 10^3/uL (1.0-4.0); LYMPHOCYTES % (AUTO) 12 % (12-44); MEAN CORPUSCULAR HEMOGLOBIN 30 pg (25-34); MEAN CORPUSCULAR HGB CONC 33 g/dL (32-36); MEAN CORPUSCULAR VOLUME 91 fL (80-99); MEAN PLATELET VOLUME 9.2 fL (9.0-12.2); MONOCYTES % (AUTO) 14 % (0-12); NEUTROPHILS # (AUTO) 5.4 10^3/uL (1.8-7.8); NEUTROPHILS % (AUTO) 73 % (42-75); PLATELET COUNT 199 10^3/uL (130-400); WHITE BLOOD COUNT 7.4 10^3/uL (4.3-11.0)
[2022-06-11 11:40] LABS: CALCIUM 8.3 MG/DL (8.5-10.1); CREATININE SERUM 0.65 MG/DL (0.60-1.30); POTASSIUM 3.1 MMOL/L (3.6-5.0)
[2022-06-11] MEDS ORDERED: HYPOCHLOROUS ACID/NaCl (VASHE) 250 ML IR PRN (14:30)
[2022-06-11] MEDS ORDERED: KCL 20 MEQ TAB (K-DUR) PO NR (14:30)
--- NOTE | 2022-06-11 15:51 | Wound Care Assessment ---
Wound Care Assessment Date Seen by Provider: Jun 11, 2022 Time Seen by Provider: 15:46 Chief Complaint Subcutaneous abscess abdomen HPI This pleasant 62 year old patient [facility] resulting colostomy. She is under the care of Dr. Sylvester. On Thursday she noted fever and abdominal pain and came in to ER. On admitting CT she was noted to have a large area of subcutaneous gas and fluid underlying midline incision. Dr. Sylvester performed I&D yesterday and packed with wet to dry. Wound vac was initiated today with white foam to base. Tara was previously healthy and only on medication for depression, menopause and HTN. She notes that since she has been in the hospital she has been off her BP medication due to hypotension. She has lost 30# since onset of current ailment. Her Albumin was 3.7 but I will plan to add prealbumin to her labs. She is on Zosyn and her preliminary culture reveals E.Coli. The remainder of her labs are reassuring. She is not diabetic. She does already have home health in place which should aide in wound vac dressing changes. I will plan to follow up with her as an outpatient upon her discharge. Smoking Status: Never a Smoker Recreational Drug Use: No Alcohol Use: Denies Use Review of Systems General: Other (30# weight loss in last month) Gastrointestinal: Abdominal Pain Exam Vital Signs Date Time Temp Pulse Resp B/P (MAP) Pulse Ox O2 Delivery O2 Flow Rate FiO2 06/11/22 11:16 36.2 85 18 109/75 (86) 96 Room Air Capillary Refill : Less Than 3 Seconds General Appearance: WD/WN, no apparent distress, other (pallor) HEENT: other (normal hearing) Neck: full range of motion Cardiovascular: no edema Respiratory: no respiratory distress, no accessory muscle use Extremities: normal range of motion Neurologic/Psychiatric: alert, normal mood/affect, oriented x 3 Skin: normal color, warm/dry Skin Problem Location: other (abdomen) Wound assessment: The epithelialization is none. There is no tunneling or undermining. Drainage is large and sanguinous. Granulation is none. necrotic is none. Results Laboratory Tests 06/11/22 11:20: White Blood Count 7.4, Red Blood Count 3.29L, Hemoglobin 10.0L, Hematocrit 30L, Mean Corpuscular Volume 91, Mean Corpuscular Hemoglobin 30, Mean Corpuscular Hemoglobin Concent 33, Red Cell Distribution Width 12.6, Platelet Count 199, Mean Platelet Volume 9.2, Immature Granulocyte % (Auto) 0, Neutrophils (%) (Auto) 73, Lymphocytes (%) (Auto) 12, Monocytes (%) (Auto) 14H, Eosinophils (%) (Auto) 2, Basophils (%) (Auto) 0, Neutrophils # (Auto) 5.4, Lymphocytes # (Auto) 0.9L, Monocytes # (Auto) 1.0, Eosinophils # (Auto) 0.1, Basophils # (Auto) 0.0, Immature Granulocyte # (Auto) 0.0, Sodium Level 138, Potassium Level 3.1L, Chloride Level 99, Carbon Dioxide Level 32, Anion Gap 7, Blood Urea Nitrogen 6L, Creatinine 0.65, Estimat Glomerular Filtration Rate 100, BUN/Creatinine Ratio 9, Glucose Level 127H, Calcium Level 8.3L Microbiology 06/10/22 Gram Stain, Resulted Pending 06/10/22 Wound Culture - Preliminary, Resulted Escherichia coli 06/09/22 Blood Culture - Preliminary, Resulted No growth Microbiology 06/10/22 Gram Stain, Resulted Pending 06/10/22 Wound Culture - Preliminary, Resulted Escherichia coli Assessment/Plan/Dx Assessment: 1. Subcutaneous abscess of abdominal wall 2. Recent intestinal perforation with resulting colostomy 3. Anemia (chronic) 4. Obesity 5. Weight loss 6. E.Coli infection Plan: 1. Agree with initiation of wound vac. Plan for outpatient wound care with home health to assist with dressing changes. 2. Defer post-op care to Dr. Sylvester 3. Will work up further and supplement as needed as outpatient 4. Recently with significant weight loss 5. Check prealbumin. Protein supplementation if warranted 6. Agree with current antibiotics. SHON GARCIA MD Jun 11, 2022 15:51
[2022-06-11 16:00] VITALS: BP 125/58
--- NOTE | 2022-06-11 16:08 | Progress Note ---
Subjective Date Seen by a Provider: Jun 11, 2022 Time Seen by a Provider: 16:00 Subjective/Events-last exam doing better. less abd pain. no fever/chills. tolerating diet. Focused Exam Lactate Level 06/09/22 05:30: Lactic Acid Level 2.22*H 06/09/22 08:32: Lactic Acid Level 1.01 Objective Exam Vital Signs Date Time Temp Pulse Resp B/P (MAP) Pulse Ox O2 Delivery O2 Flow Rate FiO2 06/11/22 16:00 37.4 83 20 125/58 (80) 93 Room Air 06/11/22 11:16 36.2 85 18 109/75 (86) 96 Room Air 06/11/22 08:00 Room Air 06/11/22 07:49 36.4 84 18 94/64 (74) 93 Room Air 06/11/22 03:39 36.5 81 16 96/64 (75) 91 Room Air 06/10/22 23:22 36.4 86 16 91/62 (72) 91 Room Air 06/10/22 20:00 Room Air 06/10/22 19:24 36.5 94 16 91/58 (69) 92 Room Air I & O 06/11/22 07:00 Intake Total 1300 ml Output Total 800 ml Balance 500 ml Capillary Refill : Less Than 3 Seconds General Appearance: No Apparent Distress HEENT: PERRL/EOMI Neck: Full Range of Motion Respiratory: Chest Non Tender, Lungs Clear Cardiovascular: Regular Rate, Rhythm Gastrointestinal: normal bowel sounds, soft, tenderness, other (wound vac in place) Extremity: Normal Capillary Refill Neurologic/Psychiatric: Alert, Oriented x3 Lymphatic: No Adenopathy Results Lab Laboratory Tests 06/11/22 11:20: White Blood Count 7.4, Red Blood Count 3.29L, Hemoglobin 10.0L, Hematocrit 30L, Mean Corpuscular Volume 91, Mean Corpuscular Hemoglobin 30, Mean Corpuscular Hemoglobin Concent 33, Red Cell Distribution Width 12.6, Platelet Count 199, Mean Platelet Volume 9.2, Immature Granulocyte % (Auto) 0, Neutrophils (%) (Auto) 73, Lymphocytes (%) (Auto) 12, Monocytes (%) (Auto) 14H, Eosinophils (%) (Auto) 2, Basophils (%) (Auto) 0, Neutrophils # (Auto) 5.4, Lymphocytes # (Auto) 0.9L, Monocytes # (Auto) 1.0, Eosinophils # (Auto) 0.1, Basophils # (Auto) 0.0, Immature Granulocyte # (Auto) 0.0, Sodium Level 138, Potassium Level 3.1L, Chloride Level 99, Carbon Dioxide Level 32, Anion Gap 7, Blood Urea Nitrogen 6L, Creatinine 0.65, Estimat Glomerular Filtration Rate 100, BUN/Creatinine Ratio 9, Glucose Level 127H, Calcium Level 8.3L Microbiology 06/10/22 Gram Stain, Resulted Pending 06/10/22 Wound Culture - Preliminary, Resulted Escherichia coli 06/09/22 Blood Culture - Preliminary, Resulted No growth Assessment/Plan Assessment/Plan Assess & Plan/Chief Complaint fever, weakness, abd pain s/p open LAR, hartmans and end colostomy with abd wall abscess. proceed with I&D of abscess. cont IV abx. wound vac. CRUZ WOODRUFF MD Jun 11, 2022 16:08
[2022-06-11] MEDS: polyethylene glycoL POWDER 17 GM (MIRALAX) PACK PO PRN (18:34)
[2022-06-11 19:28] VITALS: BP 113/56
[2022-06-11] MEDS: KCL 20 MEQ TAB (K-DUR) PO NR ×2 (21:00→21:57)
[2022-06-12] MEDS: PIPERACILLIN SODIUM/TAZOBACTAM 4.5 GM in NS (IVPB) 100 ML IV SCH ×3 (00:17→16:37)
[2022-06-12 00:20] VITALS: BP 121/74
[2022-06-12] MEDS: HYDROmorphone 2 MG/ML VIAL (DILAUDID) IV PRN (00:20)
[2022-06-12] MEDS: LACTATED RINGERS 1,000 ML IV SCH ×2 (02:40→05:12)
[2022-06-12 03:45] VITALS: BP 102/66
[2022-06-12 07:01] LABS: BASOPHILS % (AUTO) 1 % (0-10); EOSINOPHILS # (AUTO) 0.2 10^3/uL (0.0-0.3); EOSINOPHILS % (AUTO) 3 % (0-10); HEMATOCRIT 28 % (35-52); HEMOGLOBIN 9.5 g/dL (11.5-16.0); LYMPHOCYTES # (AUTO) 1.2 10^3/uL (1.0-4.0); LYMPHOCYTES % (AUTO) 22 % (12-44); MEAN CORPUSCULAR HEMOGLOBIN 31 pg (25-34); MEAN CORPUSCULAR HGB CONC 34 g/dL (32-36); MEAN CORPUSCULAR VOLUME 92 fL (80-99); MEAN PLATELET VOLUME 9.3 fL (9.0-12.2); MONOCYTES # (AUTO) 0.9 10^3/uL (0.0-1.0); MONOCYTES % (AUTO) 16 % (0-12); NEUTROPHILS # (AUTO) 3.3 10^3/uL (1.8-7.8); NEUTROPHILS % (AUTO) 58 % (42-75); PLATELET COUNT 197 10^3/uL (130-400); WHITE BLOOD COUNT 5.7 10^3/uL (4.3-11.0)
[2022-06-12 07:28] LABS: CALCIUM 8.1 MG/DL (8.5-10.1); CREATININE SERUM 0.56 MG/DL (0.60-1.30)
[2022-06-12 07:50] VITALS: BP 121/58
[2022-06-12] MEDS: polyethylene glycoL POWDER 17 GM (MIRALAX) PACK PO PRN (09:03)
[2022-06-12] MEDS: meTOprolol TARTRATE 50 MG (LOPRESSOR) TAB PO SCH (09:08)
[2022-06-12] MEDS: TRIAMTERENE/HCTZ 75-50 (MAXZIDE,DYAZIDE) TABLET PO SCH (09:09)
[2022-06-12 11:44] VITALS: BP 122/60
[2022-06-12] MEDS: HYDROcodone/APAP 7.5 MG/325 MG (LORTAB, LORCET PLUS) TABLET PO PRN (14:39)
[2022-06-12 15:56] VITALS: BP 127/61
[2022-06-12 16:55] VITALS: BP 127/61
== END 2022-06-12 13:46 | disposition home health service (06) ==
LOC: EDUNIT# 05:15 → ER 05:18 → UNDOADMOB 07:45 → 4TH 07:45 → UNDODISOB 06-12 13:46
PROVIDERS: ADMIT Surgery; ATTEND Surgery
DX: T81.41XA Infection following a procedure, superficial incisional surgical site, initial encounter (principal); L02.211 Cutaneous abscess of abdominal wall; B96.20 Unspecified Escherichia coli [E. coli] as the cause of diseases classified elsewhere; E87.6 Hypokalemia; K59.00 Constipation, unspecified; F32.A Depression, unspecified; D64.9 Anemia, unspecified; Z93.3 Colostomy status; Z86.711 Personal history of pulmonary embolism; Z20.822 Contact with and (suspected) exposure to COVID-19; Z79.899 Other long term (current) drug therapy; Z88.1 Allergy status to other antibiotic agents; Z88.8 Allergy status to other drugs, medicaments and biological substances
CPT/HCPCS: 10060; 71045; 74177; 80048 ×2; 80053; 81000; 83605; 84134; 84145; 85007; 85025 ×3; 85027; 85610; 85730; 86141; 87040; 87070; 87077; 87186; 87205; 87636; 93041; 96361; 96365; 96366 ×2; 96375; 96376 ×4; 99284; G0378; 36415

== ENCOUNTER → 2022-06-13 | Outpatient (CLI) | payer OTHER ==
[~2022-06-13] MED LIST changes: +ACYC400T21 PO; +AMOX-355 PO; +IBUP-2473 PO; +LORA-404 PO; +POLY17PO6 PO
== END ==
LOC: WOUNDCARE 09:47
PROVIDERS: ATTEND Family Medicine
DX: T81.31XA Disruption of external operation (surgical) wound, not elsewhere classified, initial encounter (principal); L02.211 Cutaneous abscess of abdominal wall; B96.20 Unspecified Escherichia coli [E. coli] as the cause of diseases classified elsewhere; E43 Unspecified severe protein-calorie malnutrition; D46.4 Refractory anemia, unspecified; R63.4 Abnormal weight loss
CPT/HCPCS: 82607; 82728; 82746; 83540; 83550; 97605; G0463; 36415

== ENCOUNTER → 2022-06-20 | Outpatient (CLI) | payer OTHER | LOC: WOUNDCARE 09:53 | PROVIDERS: ATTEND Family Medicine | DX: T81.31XA Disruption of external operation (surgical) wound, not elsewhere classified, initial encounter (principal); L02.211 Cutaneous abscess of abdominal wall; B96.20 Unspecified Escherichia coli [E. coli] as the cause of diseases classified elsewhere; E46 Unspecified protein-calorie malnutrition; D46.4 Refractory anemia, unspecified; R63.4 Abnormal weight loss; E11.52 Type 2 diabetes mellitus with diabetic peripheral angiopathy with gangrene; I96 Gangrene, not elsewhere classified | CPT/HCPCS: 11042; 11045 ==

== ENCOUNTER → 2022-06-23 | Outpatient (CLI) | payer OTHER | LOC: WOUNDCARE 09:28 | PROVIDERS: ATTEND Family Medicine | DX: T81.49XA Infection following a procedure, other surgical site, initial encounter (principal) | CPT/HCPCS: 97605; G0463 ==

== ENCOUNTER → 2022-06-27 | Outpatient (CLI) | payer OTHER | LOC: WOUNDCARE 09:37 | PROVIDERS: ATTEND Family Medicine | DX: T81.31XA Disruption of external operation (surgical) wound, not elsewhere classified, initial encounter (principal); L02.211 Cutaneous abscess of abdominal wall; E43 Unspecified severe protein-calorie malnutrition; D46.4 Refractory anemia, unspecified; R63.4 Abnormal weight loss; I96 Gangrene, not elsewhere classified | CPT/HCPCS: 11042; 11045; 97605; G0463 ==

== ENCOUNTER → 2022-07-04 | Outpatient (CLI) | payer OTHER | LOC: WOUNDCARE 09:24 | PROVIDERS: ATTEND Family Medicine | DX: T81.31XA Disruption of external operation (surgical) wound, not elsewhere classified, initial encounter (principal); L02.211 Cutaneous abscess of abdominal wall; E43 Unspecified severe protein-calorie malnutrition; R63.4 Abnormal weight loss; D46.4 Refractory anemia, unspecified; I96 Gangrene, not elsewhere classified | CPT/HCPCS: 11042; 11045; 87070; 87205; 97605; G0463; 87077 ==

== ENCOUNTER → 2022-07-11 | Outpatient (CLI) | payer OTHER | LOC: WOUNDCARE 09:21 | PROVIDERS: ATTEND Family Medicine | DX: T81.31XA Disruption of external operation (surgical) wound, not elsewhere classified, initial encounter (principal); L02.211 Cutaneous abscess of abdominal wall; E43 Unspecified severe protein-calorie malnutrition; D46.4 Refractory anemia, unspecified; R63.4 Abnormal weight loss; I96 Gangrene, not elsewhere classified; Z68.36 Body mass index [BMI] 36.0-36.9, adult | CPT/HCPCS: 11042; A6197; A6212; G0463 ==

== ENCOUNTER → 2022-07-18 | Outpatient (CLI) | payer OTHER | LOC: WOUNDCARE 09:19 | PROVIDERS: ATTEND Family Medicine | DX: T81.31XA Disruption of external operation (surgical) wound, not elsewhere classified, initial encounter (principal); E43 Unspecified severe protein-calorie malnutrition; D46.4 Refractory anemia, unspecified; R63.4 Abnormal weight loss; I96 Gangrene, not elsewhere classified | CPT/HCPCS: 11042; A6212; G0463 ==

== ENCOUNTER → 2022-08-01 | Outpatient (CLI) | payer OTHER ==
[2022-08-01 10:19] LABS: BASOPHILS # (AUTO) 0.1 10^3/uL (0.0-0.1); BASOPHILS % (AUTO) 1 % (0-10); EOSINOPHILS # (AUTO) 0.2 10^3/uL (0.0-0.3); EOSINOPHILS % (AUTO) 2 % (0-10); HEMATOCRIT 39 % (35-52); HEMOGLOBIN 13.1 g/dL (11.5-16.0); LYMPHOCYTES # (AUTO) 1.4 10^3/uL (1.0-4.0); LYMPHOCYTES % (AUTO) 18 % (12-44); MEAN CORPUSCULAR HEMOGLOBIN 30 pg (25-34); MEAN CORPUSCULAR HGB CONC 33 g/dL (32-36); MEAN CORPUSCULAR VOLUME 91 fL (80-99); MEAN PLATELET VOLUME 9.3 fL (9.0-12.2); MONOCYTES # (AUTO) 0.7 10^3/uL (0.0-1.0); MONOCYTES % (AUTO) 9 % (0-12); NEUTROPHILS # (AUTO) 5.5 10^3/uL (1.8-7.8); NEUTROPHILS % (AUTO) 70 % (42-75); PLATELET COUNT 288 10^3/uL (130-400); WHITE BLOOD COUNT 7.8 10^3/uL (4.3-11.0)
[2022-08-01 10:29] LABS: CALCIUM 8.9 MG/DL (8.5-10.1); CREATININE SERUM 0.7 MG/DL (0.60-1.30); POTASSIUM 3.4 MMOL/L (3.6-5.0)
== END ==
LOC: WOUNDCARE 09:23
PROVIDERS: ATTEND Family Medicine
DX: T81.31XA Disruption of external operation (surgical) wound, not elsewhere classified, initial encounter (principal); E43 Unspecified severe protein-calorie malnutrition; D46.4 Refractory anemia, unspecified; R63.4 Abnormal weight loss
CPT/HCPCS: 80048; 84134; 85025; A6212; G0463; 36415; 99213

== ENCOUNTER → 2022-08-05 | Outpatient (CLI) | payer OTHER ==
[~2022-08-05] MED LIST changes: +CATHETER FLUSH 10 ML SYR IV PRN; +HOLD METFORMIN - RECEIVED CONTRAST 20 ML VIAL IV SCH; +IOHEXOL 350 MG/ML 100 ML (OMNIPAQUE 350) VIAL IV ONE; +NS 100 ML (IVPB) BAG IV ONE
--- NOTE | 2022-08-05 16:20 | Diagnostic Imaging Report ---
PROCEDURE: CT abdomen with contrast only. TECHNIQUE: Multiple contiguous axial images were obtained through the abdomen after the administration of intravenous contrast. Auto Exposure Controls were utilized during the CT exam to meet ALARA standards for radiation dose reduction. INDICATION: Previous partial colectomy with temporary colostomy. COMPARISON with 06/09/2022. FINDINGS: The nodule in the right middle is increased in size now measuring 15 x 19 mm. Colostomy noted on the left. There is a midline abdominal incision. There is a very small amount of fluid within the incision with a small amount of air tracking along the fistula tract to the umbilicus. No drainable fluid collections are seen. No intraperitoneal fluid is demonstrated. No evidence of bowel obstruction. No abscess or free air in the peritoneal space. Fatty changes of the liver. Gallbladder is absent. Pancreas and spleen are normal. Adrenal glands are not enlarged. Benign cyst right kidney. IMPRESSION: 1. Small amount of fluid along the incision tract along the midline of the abdomen in the subcutaneous tissues with a fistulous tract extending to the umbilicus. No drainable fluid collections are seen. Dictated by: Dictated on workstation # [id number]
== END ==
LOC: RAD 10:03
PROVIDERS: ATTEND Family Medicine
DX: T81.31XA Disruption of external operation (surgical) wound, not elsewhere classified, initial encounter (principal); E43 Unspecified severe protein-calorie malnutrition; D46.4 Refractory anemia, unspecified; R63.4 Abnormal weight loss; Z90.49 Acquired absence of other specified parts of digestive tract
CPT/HCPCS: 74160

== ENCOUNTER 2022-08-07 05:34 | Outpatient (CLI) | payer OTHER ==
[~2022-08-07] VITALS: Ht 152.4 cm; Wt 78.0 kg
[~2022-08-07 05:34] MED LIST changes: -CATHETER FLUSH 10 ML SYR IV PRN; -HOLD METFORMIN - RECEIVED CONTRAST 20 ML VIAL IV SCH; -IOHEXOL 350 MG/ML 100 ML (OMNIPAQUE 350) VIAL IV ONE; -NS 100 ML (IVPB) BAG IV ONE
[2022-08-08] MEDS ORDERED: BISA-65 PO (14:41)
== END 2022-08-08 15:39 | disposition home or self-care (01) ==
LOC: PREOP 05:34
PROVIDERS: ATTEND Surgery
DX: Z01.818 Encounter for other preprocedural examination (principal)

== ENCOUNTER → 2022-08-08 | Outpatient (CLI) | payer OTHER ==
[~2022-08-08] MED LIST changes: +BISA-65 PO
== END ==
LOC: WOUNDCARE 09:26
PROVIDERS: ATTEND Family Medicine
DX: T81.31XA Disruption of external operation (surgical) wound, not elsewhere classified, initial encounter (principal); E43 Unspecified severe protein-calorie malnutrition; D46.4 Refractory anemia, unspecified; Z68.36 Body mass index [BMI] 36.0-36.9, adult
CPT/HCPCS: A6212; G0463; 99212

== ENCOUNTER 2022-08-14 09:00 | Inpatient (IN) | payer OTHER ==
[~2022-08-14] VITALS: Ht 152.4 cm; Wt 78.6 kg
[2022-08-14] VITALS (9 sets, daily range): BP systolic 115–138; BP diastolic 63–83
--- NOTE | 2022-08-14 09:50 | Progress Note-Pre Operative ---
Pre-Operative Progress Note Date H&P Reviewed: Aug 14, 2022 Time H&P Reviewed: 09:45 History & Physical: H&P Reviewed, Patient Examed, No changes noted Pre-Operative Diagnosis: diverticulitis KAMAR BOYKIN APRN Aug 14, 2022 09:50
[2022-08-14] MEDS ORDERED: HYDR-3817 PO (09:51)
--- NOTE | 2022-08-14 09:52 | Discharge Inst-Surgical ---
D/C Lap Instructions-KIDO Reconcile Patient Problems Problems Reviewed?: Yes New, Converted, or Re-Newed RX: RX on Chart Follow Up Appt in 2 weeks Activity as tolerated No driving for 24 hours No driving while on pain medications Incentive Spirometry use every 2 hours while awake Regular Diet Symptoms to Report: Fever over 101 degree F, Nausea/Vomiting Infection Signs and Symptoms to report: Increased redness, Foul odor of wound, Increased drainage Bathing instructions: May shower Operative Area Clean/Dry; Keep incision clean/dry If any problems/questions: Contact your physician or go to Emergency Room KAMAR BOYKIN APRN Aug 14, 2022 09:52
[2022-08-14] MEDS ORDERED: proPOfol 200 MG/20 ML (DIPRIVAN) VIAL IV ONE (10:00)
[2022-08-14] MEDS ORDERED: GLYCOPYRROLATE 0.2 MG/ML (ROBINUL) 2 ML VIAL ONE (10:00)
[2022-08-14] MEDS ORDERED: ceFAZolin INJECTION 2,000 MG in NS (IVPB) 50 ML IV ONE (10:00)
[2022-08-14] MEDS ORDERED: NEOSTIGMINE 3 MG/3 ML VIAL ONE (10:00)
[2022-08-14] MEDS ORDERED: ROCURONIUM 10 MG/ML 5 ML SYRINGE IV ONE (10:00)
[2022-08-14] MEDS ORDERED: ONDANSETRON 4 MG/2 ML (SDV) Z0FRAN ONE (10:00)
[2022-08-14] MEDS ORDERED: fentaNYL INJ 100 MCG/2 ML AMP ONE (10:00)
[2022-08-14] MEDS ORDERED: LIDOCAINE PF 2% 5 ML (XYLOCAINE) VIAL ONE (10:00)
[2022-08-14] MEDS ORDERED: MIDAZOLAM 2 MG/2 ML (VERSED) VIAL ONE (10:01)
[2022-08-14] MEDS: LACTATED RINGERS 1,000 ML IV PRN ×2 (10:02→11:19)
[2022-08-14] MEDS ORDERED: BUP/EPI 0.25% 1:200,000 (MARCAINE) 30 ML VIAL ONE (10:14)
[2022-08-14] MEDS ORDERED: PROMETHAZINE INJ 25 MG/ML (PHENERGAN) AMP IVP ONE (10:15)
[2022-08-14] MEDS ORDERED: SCOPOLAMINE 1.5 MG (TRANSDERM-SCOP) PATCH TD ONE (10:15)
[2022-08-14] MEDS ORDERED: ONDANSETRON 4 MG/2 ML (SDV) Z0FRAN IVP ONE (10:15)
[2022-08-14] MEDS ORDERED: HYDROmorphone 2 MG/ML VIAL (DILAUDID) IV ONE ×2 (10:15→14:30)
[2022-08-14] MEDS ORDERED: ONDANSETRON 4 MG/2 ML (SDV) Z0FRAN IVP PRN ×2 (10:15→14:30)
[2022-08-14] MEDS ORDERED: morphine INJ 10 MG/ML 1ML (SYR OR VIAL) IVP ONE ×2 (10:15→14:30)
[2022-08-14] MEDS ORDERED: FAMOTIDINE 20MG/2ML IV (PEPCID) ONE (10:17)
[2022-08-14] MEDS ORDERED: SCOPOLAMINE 1.5 MG (TRANSDERM-SCOP) PATCH ONE (10:17)
[2022-08-14] MEDS: FAMOTIDINE 20MG/2ML IV (PEPCID) IVP SCH (10:27)
[2022-08-14] MEDS ORDERED: PHENYLEPHRINE 100 MCG/ML 10 ML (ANESTHESIA) SYR ONE (10:47)
[2022-08-14] MEDS ORDERED: BUP/EPI 0.25% 1:200,000 (MARCAINE) 30 ML VIAL INJ ONE (11:28)
[2022-08-14] MEDS ORDERED: PHENYLEPHRINE INJ 10 MG/ML (FOR PYXIS KITS ONLY) ONE (11:47)
[2022-08-14] MEDS ORDERED: ROPIVACAINE 5MG/ML 30ML VIAL ONE (13:12)
[2022-08-14] MEDS ORDERED: HYDROmorphone 2 MG/ML VIAL (DILAUDID) ONE (13:22)
[2022-08-14] MEDS ORDERED: LACTATED RINGERS 1,000 ML IV PRN (14:00)
[2022-08-14] MEDS ORDERED: SEVOFLURANE (ULTANE) 15 ML INHAL SOLN ONE (14:08)
--- NOTE | 2022-08-14 14:08 | Progress Note-Post Operative ---
Post-Operative Progess Note Surgeon (s)/Boxing And Pressing Supervisor (s) Surgeon CRUZ WOODRUFF MD Boxing And Pressing Supervisor: lyn henderson FUELER Pre-Operative Diagnosis diverticulitis Post-Operative Diagnosis same Procedure & Operative Findings Date of Procedure 08/14/22 Procedure Performed/Findings laparoscopic colostomy reversal Anesthesia Type get Estimated Blood Loss Estimated blood loss (mL): minimal Specimens/Packing Specimens Removed none CRUZ WOODRUFF MD Aug 14, 2022 14:08
[2022-08-14] MEDS ORDERED: diphenhydrAMINE 50 MG/ML INJ (BENADRYL) IV PRN (14:15)
[2022-08-14] MEDS ORDERED: fentaNYL INJ 1,000 MCG in NS (IVPB) 80 ML IV PRN (14:15)
[2022-08-14] MEDS ORDERED: METOCLOPRAMIDE INJ 10 MG/2 ML (REGLAN) IV PRN (14:15)
[2022-08-14] MEDS ORDERED: NALOXONE 0.4 MG/ML 1 ML (NARCAN) VIAL IV PRN (14:15)
[2022-08-14] MEDS ORDERED: diphenhydrAMINE 50 MG/ML INJ (BENADRYL) IVP PRN (14:15)
[2022-08-14] MEDS ORDERED: NS IV 1000 ML 1,000 ML IV SCH (14:15)
[2022-08-14] MEDS: 1/2 NS W/KCL 20 MEQ/L 1,000 ML IV SCH ×2 (15:33→21:25)
[2022-08-14] MEDS: metroNIDAZOLE 500MG/100ML IVPB 100 ML IV SCH (15:33)
--- NOTE | 2022-08-14 16:40 | OPERATIVE REPORT ---
DATE OF SERVICE: 08/14/2022 ATTENDING PRIMARY CARE PHYSICIAN: Dr. Marbella Lee. PREOPERATIVE DIAGNOSIS: History of perforated sigmoid diverticulitis. POSTOPERATIVE DIAGNOSIS: History of perforated sigmoid diverticulitis. PROCEDURE: Laparoscopic reversal of colostomy, segmental colon resection, lysis of adhesions 120minutes SURGEON: Dr. Sylvester. DEMONSTRATOR SEWING TECHNIQUES: Chang Lowe APRN. ANESTHESIA: General endotracheal. ESTIMATED BLOOD LOSS: 50 mL FINDINGS: Intra-abdominal adhesion tissue. DISPOSITION: The patient tolerated the procedure well. INDICATION: The patient is a 62-year-old female who presented to the Emergency Department on 05/11/[address] scan was performed, which did show signs of a contained perforated diverticulitis. We tried to proceed with conservative medical management with bowel rest and IV antibiotics. However, she continued to have abdominal pain. We then proceeded with exploratory laparotomy, sigmoid colon resection, Bridget's pouch and end colostomy. Since that time, she has been doing well and tolerating diet with a functional ostomy. She is now here for reversal of the colostomy. DESCRIPTION OF PROCEDURE: The patient was brought to the operating room, laid supine on the table. After adequate IV pain sedative medications and general endotracheal intubation, the patient was then placed in modified lithotomy position. The abdomen and perineum were then prepped and draped in standard surgical fashion. A 0.5% Marcaine with epinephrine was used to anesthetize the overlying skin in the left upper abdominal quadrant and a transverse skin incision made using a #15 blade. An 0 silk suture was applied to the medial aspect of the incision for retraction and a Veress needle inserted with a low opening pressure of 0 mmHg. The abdomen was then insufflated to 15 mmHg pressure. The Veress needle removed and a 5 mm XCEL trocar placed followed by a 5 mm 45-degree angle laparoscope visualizing the peritoneal cavity. A 4-quadrant abdominal exploration was performed. There were small bowels as well as omental adhesions towards the anterior abdominal wall. Under direct visualization, we then proceeded to place a right upper abdominal quadrant 5 mm port as well as a right lower abdominal quadrant 5 mm port after the skin and peritoneal lining were anesthetized using 0.5% Marcaine with epinephrine. The patient was then placed in Trendelenburg position. We then proceeded with meticulous lysis of adhesions of all of the small bowel and omental adhesions using EndoShears as well as Sonicision with visualization with good hemostasis. The small bowel adhesions in the pelvis were also taken down. This took approximately 120 minutes. Good hemostasis was observed. We then proceeded with dissection of the end colostomy and once we opened up the fascia with our dissection laparoscopically, we then created a skin incision along the skin encompassing the entire colostomy with a 10 blade. This was then completely freed using electrocautery as well as blunt dissection. The end which was approximately 6-8 cm in length was resected. The remainder of the sigmoid colon was well vascularized. The resection was done while placing a pursestring device and the colon resected using a 10 blade. We then proceeded with dilatation of the sigmoid colon and we were able to dilate a 33 mm and decided to proceed with an EEA 29 mm stapler. The anvil was then placed into the end of the sigmoid colon and the pursestring tied. I then went to the anus and proceeded with dilatation to 33 mm. This was done under direct visualization under the laparoscope. Under direct visualization, the stem was then opened and the anvil placed onto the stem and the stapler closed without any resistance to middle resistance. The staple was then fired and removed with good hemostasis. A leak test was then performed with no leak identified. A 10-Macedonian Jair-Contreras drain was then placed near the area of the anastomosis and pulled out through the left upper abdominal quadrant 5 mm port site. This was sutured to the skin using 3-0 nylon suture. The abdomen was then desufflated and the fascia to the colostomy site was then closed using #1 looped PDS suture. The skin was then loosely approximated using skin abimbola. The other incision sites were then closed with abimbola as well. Good hemostasis was observed. Wounds were then cleaned and covered with gauze dressing. The patient tolerated the procedure well. We will admit her and proceed with pain control with a MEDICAL SECRETARY RECEPTIONIST pump. We will also proceed with DVT prophylaxis with early ambulation calf SCDs as well as Lovenox injections. Once she does have some bowel function, we will start a clear liquid diet and advance as tolerated. Job ID: [id number] DocumentID: [id number] Dictated Date: 08/14/2022 15:04:15 Rink Rat Date: 08/14/2022 16:38:00 Dictated By: CRUZ SYLVESTER MD [facility]um[facility]
[2022-08-14] MEDS: ceFAZolin INJECTION 2,000 MG in NS (IVPB) 50 ML IV SCH (17:35)
[2022-08-14] MEDS: ENOXAPARIN INJECTION 30 MG/0.3 ML SYR SC SCH (20:39)
[2022-08-14] MEDS: RT-ALBUTEROL SULF 2.5 MG/3 ML PRE-MIX VIAL INH SCH (20:59)
[2022-08-15 00:17] VITALS: BP 103/67
[2022-08-15] MEDS: metroNIDAZOLE 500MG/100ML IVPB 100 ML IV SCH ×2 (00:25→08:36)
[2022-08-15] MEDS: ceFAZolin INJECTION 2,000 MG in NS (IVPB) 50 ML IV SCH ×2 (01:37→10:02)
[2022-08-15] MEDS: 1/2 NS W/KCL 20 MEQ/L 1,000 ML IV SCH ×2 (03:43→10:53)
[2022-08-15 04:00] VITALS: BP 111/63
[2022-08-15 05:57] LABS: HEMATOCRIT 41 % (35-52); HEMOGLOBIN 13.5 g/dL (11.5-16.0); MEAN CORPUSCULAR HEMOGLOBIN 30 pg (25-34); MEAN CORPUSCULAR HGB CONC 33 g/dL (32-36); MEAN CORPUSCULAR VOLUME 90 fL (80-99); MEAN PLATELET VOLUME 9.7 fL (9.0-12.2); PLATELET COUNT 308 10^3/uL (130-400)
[2022-08-15 06:18] LABS: POTASSIUM 3.2 MMOL/L (3.6-5.0)
[2022-08-15 06:19] LABS: CALCIUM 8.5 MG/DL (8.5-10.1)
[2022-08-15 06:24] LABS: CREATININE SERUM 0.69 MG/DL (0.60-1.30)
[2022-08-15] MEDS: RT-ALBUTEROL SULF 2.5 MG/3 ML PRE-MIX VIAL INH SCH ×3 (07:05→20:50)
[2022-08-15 08:14] VITALS: BP 101/67
[2022-08-15] MEDS ORDERED: ACETAMINOPHEN 325 MG TABLET PO PRN (08:30)
[2022-08-15] MEDS: FAMOTIDINE 20MG/2ML IV (PEPCID) IVP SCH (08:33)
[2022-08-15] MEDS: PANTOPRAZOLE 40 MG (PROTONIX) VIAL IV SCH (08:33)
[2022-08-15] MEDS: SENNA W/DOCUSATE (SENOKOT S) TABLET PO SCH (08:33)
[2022-08-15] MEDS: ENOXAPARIN INJECTION 30 MG/0.3 ML SYR SC SCH ×2 (08:35→20:29)
[2022-08-15] MEDS ORDERED: KCL 20 MEQ TAB (K-DUR) PO ONE (11:30)
[2022-08-15] MEDS ORDERED: SENNA W/DOCUSATE (SENOKOT S) TABLET PO ONE (11:45)
[2022-08-15] MEDS ORDERED: LACTULOSE SYRUP 10GM/15ML (ENULOSE) 30ML UDC PO ONE (11:45)
[2022-08-15 11:47] VITALS: BP 114/76
[2022-08-15] MEDS: HYDROcodone/APAP 7.5 MG/325 MG (LORTAB, LORCET PLUS) TABLET PO PRN ×2 (12:49→16:46)
[2022-08-15] MEDS ORDERED: METOCLOPRAMIDE INJ 10 MG/2 ML (REGLAN) IVP PRN (14:15)
[2022-08-15] MEDS ORDERED: ONDANSETRON 4 MG/2 ML (SDV) Z0FRAN IVP PRN (14:15)
--- NOTE | 2022-08-15 14:56 | Anesthesia-General Post-Op ---
General Patient Condition Mental Status/LOC: Same as Preop Cardiovascular: Satisfactory Nausea/Vomiting: Absent Respiratory: Satisfactory Pain: Controlled Complications: Absent Post Op Complications Complications None Follow Up Care/Instructions Patient Instructions None needed. Anesthesia/Patient Condition Patient Condition Patient is doing well, no complaints, stable vital signs, no apparent adverse anesthesia problems. No complications reported per nursing. GABY DINERO CRNA Aug 15, 2022 14:56
[2022-08-15 15:28] VITALS: BP 106/71
[2022-08-15] MEDS: fentaNYL INJ 100 MCG/2 ML AMP IVP PRN ×2 (15:30→20:30)
[2022-08-15 19:11] VITALS: BP 137/69
[2022-08-15] MEDS: polyethylene glycoL POWDER 17 GM (MIRALAX) PACK PO SCH (20:28)
[2022-08-15] MEDS: ONDANSETRON 4 MG/2 ML (SDV) Z0FRAN IV PRN (20:29)
[2022-08-16] VITALS: BP 118/75
[2022-08-16] MEDS: HYDROcodone/APAP 7.5 MG/325 MG (LORTAB, LORCET PLUS) TABLET PO PRN ×4 (02:37→20:21)
[2022-08-16 03:40] VITALS: BP 129/81
[2022-08-16 07:31] VITALS: BP 135/65
[2022-08-16] MEDS: RT-ALBUTEROL SULF 2.5 MG/3 ML PRE-MIX VIAL INH SCH ×2 (07:55→14:57)
[2022-08-16] MEDS: PANTOPRAZOLE 40 MG (PROTONIX) VIAL IV SCH (08:44)
[2022-08-16] MEDS: FAMOTIDINE 20MG/2ML IV (PEPCID) IVP SCH (08:46)
[2022-08-16] MEDS: LORATADINE (CLARITIN) 10 MG TAB PO SCH (08:49)
[2022-08-16] MEDS: TRIAMTERENE/HCTZ 75-50 (MAXZIDE,DYAZIDE) TABLET PO SCH (08:49)
[2022-08-16] MEDS: ESTRADIOL 1 MG TAB (ESTRACE) PO SCH (08:49)
[2022-08-16] MEDS: SENNA W/DOCUSATE (SENOKOT S) TABLET PO SCH (08:50)
[2022-08-16] MEDS: polyethylene glycoL POWDER 17 GM (MIRALAX) PACK PO SCH ×2 (08:50→20:21)
[2022-08-16] MEDS: ENOXAPARIN INJECTION 30 MG/0.3 ML SYR SC SCH ×2 (08:51→20:22)
[2022-08-16] MEDS: ONDANSETRON 4 MG/2 ML (SDV) Z0FRAN IV PRN (10:18)
[2022-08-16 11:29] VITALS: BP 122/74
--- NOTE | 2022-08-16 11:31 | Progress Note ---
Subjective Date Seen by a Provider: Aug 15, 2022 Time Seen by a Provider: 11:00 Subjective/Events-last exam this note is dated for 08/16/22. patient doing well. having significant flatus and small liquid BM. pain controlled. no fever/chills. Objective Exam Vital Signs Date Time Temp Pulse Resp B/P (MAP) Pulse Ox O2 Delivery O2 Flow Rate FiO2 08/16/22 09:00 Room Air 08/16/22 07:56 Room Air 08/16/22 07:31 36.1 82 16 135/65 (88) 94 Room Air 08/16/22 03:40 36.6 68 16 129/81 (97) 95 Room Air 08/16/22 00:00 36.3 93 16 118/75 (89) 96 Room Air 08/15/22 21:00 Room Air 08/15/22 20:50 93 Room Air 08/15/22 19:11 36.3 78 18 137/69 (91) 98 Room Air 2.00 2.00 08/15/22 15:28 36.8 88 20 106/71 (83) 98 Room Air 2.00 2.00 08/15/22 14:17 95 Room Air 08/15/22 11:47 36.2 78 18 114/76 (89) 96 Room Air I & O 08/16/22 07:00 Intake Total 1916.8 ml Output Total 2370 ml Balance -453.2 ml Capillary Refill : General Appearance: No Apparent Distress HEENT: PERRL/EOMI Neck: Full Range of Motion Respiratory: Chest Non Tender, Lungs Clear, Normal Breath Sounds Cardiovascular: Regular Rate, Rhythm Gastrointestinal: soft, tenderness, other (wounds clean/dry) Extremity: Normal Capillary Refill Neurologic/Psychiatric: Alert, Oriented x3 Skin: Normal Color Lymphatic: No Adenopathy Results Lab Microbiology 08/14/22 MRSA Screen - Final, Complete MRSA not isolated Assessment/Plan Assessment/Plan Assess & Plan/Chief Complaint s/p laparoscopic reversal colostomy. cont ambulation. clear liquid diet. CRUZ WOODRUFF MD Aug 16, 2022 11:31
--- NOTE | 2022-08-16 11:33 | Progress Note ---
Subjective Date Seen by a Provider: Aug 16, 2022 Time Seen by a Provider: 11:00 Subjective/Events-last exam doing well. did have episodes of nausea after breathing tx. passing flatus. pain controlled. Objective Exam Vital Signs Date Time Temp Pulse Resp B/P (MAP) Pulse Ox O2 Delivery O2 Flow Rate FiO2 08/16/22 09:00 Room Air 08/16/22 07:56 Room Air 08/16/22 07:31 36.1 82 16 135/65 (88) 94 Room Air 08/16/22 03:40 36.6 68 16 129/81 (97) 95 Room Air 08/16/22 00:00 36.3 93 16 118/75 (89) 96 Room Air 08/15/22 21:00 Room Air 08/15/22 20:50 93 Room Air 08/15/22 19:11 36.3 78 18 137/69 (91) 98 Room Air 2.00 2.00 08/15/22 15:28 36.8 88 20 106/71 (83) 98 Room Air 2.00 2.00 08/15/22 14:17 95 Room Air 08/15/22 11:47 36.2 78 18 114/76 (89) 96 Room Air I & O 08/16/22 07:00 Intake Total 1916.8 ml Output Total 2370 ml Balance -453.2 ml Capillary Refill : General Appearance: No Apparent Distress HEENT: PERRL/EOMI Neck: Full Range of Motion Respiratory: Chest Non Tender, Lungs Clear, Normal Breath Sounds Cardiovascular: Regular Rate, Rhythm Gastrointestinal: normal bowel sounds, soft, tenderness, other (wounds clean/dry) Extremity: Normal Capillary Refill Neurologic/Psychiatric: Alert, Oriented x3 Skin: Normal Color Lymphatic: No Adenopathy Results Lab Microbiology 08/14/22 MRSA Screen - Final, Complete MRSA not isolated Assessment/Plan Assessment/Plan Assess & Plan/Chief Complaint s/p laparoscopic reversal colostomy. cont ambulation. await more bowel fxn. dys3 diet. CRUZ WOODRUFF MD Aug 16, 2022 11:33
[2022-08-16] MEDS ORDERED: ONDANSETRON 4 MG/2 ML (SDV) Z0FRAN IVP PRN (11:45)
[2022-08-16] MEDS ORDERED: PROMETHAZINE INJ 25 MG/ML (PHENERGAN) AMP IVP PRN (11:45)
[2022-08-16 12:36] LABS: BASOPHILS # (AUTO) 0.1 10^3/uL (0.0-0.1); BASOPHILS % (AUTO) 0 % (0-10); EOSINOPHILS # (AUTO) 0.2 10^3/uL (0.0-0.3); EOSINOPHILS % (AUTO) 1 % (0-10); HEMATOCRIT 39 % (35-52); LYMPHOCYTES # (AUTO) 1.2 10^3/uL (1.0-4.0); LYMPHOCYTES % (AUTO) 8 % (12-44); MEAN CORPUSCULAR HEMOGLOBIN 30 pg (25-34); MEAN CORPUSCULAR HGB CONC 33 g/dL (32-36); MEAN CORPUSCULAR VOLUME 91 fL (80-99); MONOCYTES # (AUTO) 1.6 10^3/uL (0.0-1.0); MONOCYTES % (AUTO) 10 % (0-12); NEUTROPHILS # (AUTO) 12.4 10^3/uL (1.8-7.8); NEUTROPHILS % (AUTO) 80 % (42-75); PLATELET COUNT 282 10^3/uL (130-400); WHITE BLOOD COUNT 15.5 10^3/uL (4.3-11.0)
[2022-08-16 12:59] LABS: BAND NEUTROPHILS 0 %; BASOPHILS % (MANUAL) 0 %; EOSINOPHILS % (MANUAL) 0 %; LYMPHOCYTES % (MANUAL) 8 %; MONOCYTES % (MANUAL) 8 %; NEUTROPHILS % (MANUAL) 84 %; RBC MORPH NORMAL
[2022-08-16 15:23] VITALS: BP 132/68
[2022-08-16 19:14] VITALS: BP 124/58
[2022-08-17] VITALS: BP 129/63
[2022-08-17 04:00] VITALS: BP 119/59
[2022-08-17 07:03] VITALS: BP 126/72
[2022-08-17] MEDS: PANTOPRAZOLE 40 MG (PROTONIX) VIAL IV SCH (08:50)
[2022-08-17] MEDS: FAMOTIDINE 20MG/2ML IV (PEPCID) IVP SCH (08:50)
[2022-08-17] MEDS: ENOXAPARIN INJECTION 30 MG/0.3 ML SYR SC SCH (08:51)
[2022-08-17] MEDS: LORATADINE (CLARITIN) 10 MG TAB PO SCH (08:57)
[2022-08-17] MEDS: TRIAMTERENE/HCTZ 75-50 (MAXZIDE,DYAZIDE) TABLET PO SCH (08:57)
[2022-08-17] MEDS: ESTRADIOL 1 MG TAB (ESTRACE) PO SCH (08:57)
[2022-08-17] MEDS: SENNA W/DOCUSATE (SENOKOT S) TABLET PO SCH (10:37)
[2022-08-17] MEDS: polyethylene glycoL POWDER 17 GM (MIRALAX) PACK PO SCH (10:37)
--- NOTE | 2022-08-17 11:02 | Progress Note ---
Subjective Date Seen by a Provider: Aug 17, 2022 Time Seen by a Provider: 11:00 Subjective/Events-last exam doing well. pain controlled. passing copious flatus and having BM's. tolerating diet. no fever/chills. ambulating well. Objective Exam Vital Signs Date Time Temp Pulse Resp B/P (MAP) Pulse Ox O2 Delivery O2 Flow Rate FiO2 08/17/22 07:03 36.8 88 16 126/72 (90) 93 Room Air 08/17/22 04:00 36.1 81 18 119/59 (79) 95 Room Air 08/17/22 00:00 36.5 78 18 129/63 (85) 94 Room Air 08/16/22 21:00 Room Air 08/16/22 19:14 36.0 84 18 124/58 (80) 92 Room Air 08/16/22 15:23 36.8 86 20 132/68 (89) 97 Room Air 08/16/22 11:29 36.0 90 18 122/74 (90) 95 Room Air I & O 08/17/22 07:00 Intake Total 1750 ml Output Total 1780 ml Balance -30 ml Capillary Refill : General Appearance: No Apparent Distress HEENT: PERRL/EOMI Neck: Full Range of Motion Respiratory: Chest Non Tender, Lungs Clear, Normal Breath Sounds Cardiovascular: Regular Rate, Rhythm Gastrointestinal: normal bowel sounds, soft, tenderness, other (wounds clean/dry) Extremity: Normal Capillary Refill Neurologic/Psychiatric: Alert, Oriented x3 Skin: Normal Color Lymphatic: No Adenopathy Results Lab Laboratory Tests 08/16/22 12:30: White Blood Count 15.5H, Red Blood Count 4.33, Hemoglobin 13.0, Hematocrit 39, Mean Corpuscular Volume 91, Mean Corpuscular Hemoglobin 30, Mean Corpuscular Hemoglobin Concent 33, Red Cell Distribution Width 13.7, Platelet Count 282, Mean Platelet Volume 9.0, Immature Granulocyte % (Auto) 0, Neutrophils (%) (Auto) 80H, Lymphocytes (%) (Auto) 8L, Monocytes (%) (Auto) 10, Eosinophils (%) (Auto) 1, Basophils (%) (Auto) 0, Neutrophils # (Auto) 12.4H, Lymphocytes # (Auto) 1.2, Monocytes # (Auto) 1.6H, Eosinophils # (Auto) 0.2, Basophils # (Auto) 0.1, Immature Granulocyte # (Auto) 0.1, Neutrophils % (Manual) 84, Lymphocytes % (Manual) 8, Monocytes % (Manual) 8, Eosinophils % (Manual) 0, Basophils % (Manual) 0, Band Neutrophils 0, Blood Morphology Comment NORMAL Microbiology 08/14/22 MRSA Screen - Final, Complete MRSA not isolated Assessment/Plan Assessment/Plan Assess & Plan/Chief Complaint s/p laparoscopic reversal colostomy. cont ambulation. dys3 diet. home soon. f/u 2 weeks. CRUZ WOODRUFF MD Aug 17, 2022 11:02
[2022-08-17 11:10] VITALS: BP 124/63
== END 2022-08-17 11:55 | disposition home or self-care (01) | DRG 331 ==
LOC: 4TH 09:31 → SURG 09:32 → 4TH 14:59
PROVIDERS: ADMIT Surgery; ATTEND Surgery
PROC: 0DNU4ZZ Release Omentum, Percutaneous Endoscopic Approach (ICD-10-PCS; 2022-08-14)
PROC: 0DN84ZZ Release Small Intestine, Percutaneous Endoscopic Approach (ICD-10-PCS; 2022-08-14)
PROC: 0DBN4ZZ Excision of Sigmoid Colon, Percutaneous Endoscopic Approach (ICD-10-PCS; principal; 2022-08-14 10:31)
DX: Z43.3 Encounter for attention to colostomy (principal); K66.0 Peritoneal adhesions (postprocedural) (postinfection)
CPT/HCPCS: 36415; 80048; 85007; 85027; 87081; 94640; 94664